=== PATIENT | female | born 1960 | race Caucasian/White ===

== ENCOUNTER 2017-11-24 08:04 | Day surgery (SDC) | payer BC, SELFPAY ==
--- NOTE | 2017-11-24 06:11 | PDOC.DSDIS_ITS ---
Discharge Plan Disposition Patient Disposition: HOME Condition: Good Discharge Details Reason For Visit: PERSONAL HX OF COLON POLYPS Attending Provider: Mayte Zaldivar Primary Care Provider: Kaitlynn Peralta Home Meds and New Rx's Prescriptions: Continue multivitamin [Daily Multi-Vitamin] 1 EACH tablet 1 ea PO daily prn RF: 0 albuterol sulfate [ProAir HFA] 200 PUFF HFA aerosol inhaler 1 - 2 puff Inhalation QID PRNQty: 1 RF: 4 furosemide 20 MG tablet 20 mg PO DAILY PRNQty: 30 RF: 1 carbidopa-levodopa [Sinemet] 1 EACH tablet 1 tab-cap PO HS PRNQty: 30 RF: 11 fluticasone 16 GM spray,suspension 2 spry NS DAILY Qty: 1 RF: 4 aspirin [Adult Low Dose Aspirin] 81 MG tablet,delayed release (DR/EC) 81 mg PO daily prn RF: 0 Discharge Instructions Instructions: Colonoscopy (DC), Diverticulosis (DC), Colorectal Polyps (DC) Additional Instructions: Findings: > then 12 polyps Mild diverticulosis Follow up: depends on final pathology New Medications: none Please call if you develop: fevers >101.5 Nausea or Vomiting Abdominal pain that is not transient 1. Because there will be medication in your system for the next 24 hours, you may feel a little sleepy. Your coordination will be affected. Therefore: a. Do not drive or operate dangerous equipment for 24 hours. b. Do not drink alcohol beverages for 24 hours (not even beer). c. Plan to go home and rest for the day. 2. Generally there are no restrictions on your activity after a day or so has gone by, but you may feel a bit fatigued for a few days. 3 After you arrive home you may have a light meal and return to a normal diet as you can tolerate it without feeling sick to your stomach. 4. After surgery, you may feel pain or discomfort. This should be only transient , but if it persists please contact your doctor. 5. If there are any questions regarding the findings of your procedure, please feel free to contact your doctor. 6. If you are unable to contact your doctor with a problem, contact the hospital at [phone]. 7. Continue all your regular medications unless directed otherwise. I understand the above instructions and have no questions. Signature of Patient or Responsible Adult Escort Date/Time Name of Responsible Adult Escort Signature of Nurse Date/Time Activity:: Activity as Tolerated Diet:: High fiber Discharge Orders Discharge Orders: Discharge Order (Routine); Ordered 11/24/17 Ordered By: Mayte Zaldivar DS: Diagnosis Discharge Diagnosis (1) Diverticulosis: Status: Acute (2) Colorectal polyp detected on colonoscopy: Status: Acute
--- NOTE | 2017-11-24 06:11 | W.COLOREPORT ---
Colonoscopy Report Date of procedure: 11/24/17 Pre-op diagnosis general: Colon Cancer screening Post-op diagnosis procedure note: other (Multiple polyps and diverticulosis) Procedure: Colonoscopy with polypectomy by cold forceps and hot snare Tattoo of polyp at 18/20 cm Surgeon: Mayte Zaldivar Anesthesia proc note operative: MAC (Álvaro Morrell CRNA) Estimated blood loss (mL): 15 Pathology: other (Multiple polyps) Complications: None Disposition: same day Indications: Mrs. Louie Snyder is a pleasant 57 year old female who 3 years ago had 10 polyps. 3 were tubular adenomas and 7 were hyperplastic. Patient was seen in the office for a follow up Colonoscopy. Risks, benefits and complications were reviewed and she wished to proceed. No guarantees were given or implied. Prep: Miralax/Dulcolax Procedure Start Time: 10:12 Procedure End Time: 11:14 Retraction Time: 51 minutes Findings: Multiple polyps. 2 larger polyps at 18 and 20 cm removed and tattooed. Procedure Description: After informed consent was obtained the patient was taken to the procedure room and placed in a left decubitous position. Monitors were applied and a time out was done. The patients name, date of , procedure, allergies to medications and metal in their body was reviewed. The patient was then sedated. Once sedated and comfortable a rectal exam was done. External exam was normal. Internal exam revealed a normal sphincter tone and no palpable masses. The scope was then introduced and retroflexed. No internal hemorrhoids were identified. The scope was then advanced to the cecum without difficulty. The TI and appendiceal orifice were identified. The prep was OK. there was some stool in the cecum. The scope was then slowly retracted over 51 minutes back into the rectum. More the 12 polyps were removed. There were 2 larger polyps at 18 and 20 cm. The area between these two polyps was tattooed with 1 cc of blue dye. The scope was removed and the patient was woken up and taken back to Same day surgery in stable condition. The patient tolerated the procedure well and there were no immediate complications. Follow up: Follow up will depend on the final pathology.
[2017-11-24 08:21] VITALS: BP 149/88; PULSE 78; RESP 16; TEMP 36.6; O2SAT 98
[2017-11-24] MEDS: Lactated Ringers 1,000 ML 80 ML IV (08:39)
--- NOTE | 2017-11-24 10:31 | BOWEL_PTH ---
PATIENT: Hien Delgado LOC: [facility] U#:[id number] AGE/SX: 57/F ROOM: RE11/24/[address]: Mayte Zaldivar MD : 1960 BED: DIS: 11/24/2017 SPEC #: [id number] RECD: 11/24/17 12:44 STATUS: MARISOL REQ #: [id number] DEWEY: 11/24/17 10:[address]: Mayte Zaldivar DEPT: Surgical Specimen RECD BY: Cinthya Reeder ENTERED: 11/24/17 12:46 SP TYPE: Bowel OTHR DR: Kaitlynn Peralta MD Tissues: 1 - BIOPSY BOWEL 2 - BIOPSY BOWEL 3 - BIOPSY BOWEL 4 - BIOPSY BOWEL 5 - BIOPSY BOWEL 6 - BIOPSY BOWEL Procedures: GROSS AND MICRO LEVEL 4 Comments: [id number]
[2017-11-24] MEDS: Endoscopic Tattoo 5 ML SYR IJ (11:05)
[2017-11-24 11:45] VITALS: BP 128/78; PULSE 69; RESP 16; O2SAT 99
== END 2017-11-24 12:00 | disposition home or self-care (01) ==
PROVIDERS: PCP Family Medicine; Visit Provider Surgery
PROC: 0DJD8ZZ Inspection of Lower Intestinal Tract, Via Natural or Artificial Opening Endoscopic (ICD-10-PCS; CPT 45378; principal; 2017-11-24 10:00)
DX: Z12.11 Encounter for screening for malignant neoplasm of colon (principal); D12.2 Benign neoplasm of ascending colon; D12.4 Benign neoplasm of descending colon; D12.5 Benign neoplasm of sigmoid colon; K63.5 Polyp of colon; K62.1 Rectal polyp; Z86.010 Personal history of colon polyps; F17.210 Nicotine dependence, cigarettes, uncomplicated
CPT/HCPCS: 45380; 45381; 45385; 88305; J2250; J3010

== ENCOUNTER 2017-12-29 17:59 | Emergency (ER) | payer OTHER, BC, SELFPAY ==
[2017-12-29] VITALS (17 sets, daily range): BP systolic 121–188; BP diastolic 62–105; PULSE 72–89; RESP 11–20; TEMP 36.3–36.6; O2SAT 97–100
--- NOTE | 2017-12-29 18:10 | DI.RAD_ITS ---
SYMPTOMS/DIAGNOSIS: DEFORMITY S/P FALL RIGHT ANKLE: Three views were obtained and show a moderately displaced trimalleolar fracture dislocation of the ankle. No additional hindfoot or midfoot fractures seen. POSTREDUCTION, RIGHT ANKLE: Three views were obtained with the ankle in a splint. There is improved reduction of the fracture dislocation of the trimalleolar fracture fragments.
[2017-12-29] MEDS: fentaNYL 100 MCG/2 ML VIAL 50 MCG IVP (18:16)
[2017-12-29 18:19] LABS: Abs Immature Grans 0.03 k/cumm (0.0-0.09); Absolute Basophil Count 0.02 k/cumm (0.0-0.2); Absolute Eosinophil Count 0.16 k/cumm (0.0-0.7); Absolute Lymphocyte Count 2.22 k/cumm (1.2-3.4); Absolute Monocyte Count 0.72 k/cumm (0.11-0.7); Absolute Neutrophil Count 5.69 k/cumm (1.2-6.7); Basophils % 0.2; Eosinophils % 1.8; HCT 43.7 % (36.0-46.0); HGB 14.3 g/dL (12.0-15.5); Immature Grans % 0.3; Lymphocytes % 25.1; Mean Corp. HGB Concentration 32.7 g/dL (32.0-36.0); Mean Corpuscular Hemoglobin 31.6 pg (27.0-33.0); Mean Corpuscular Volume 96.7 fL (80-95); Monocytes % 8.1; Neutrophils % 64.5; Platelet Count 159 x1000/uL (130-400); RBC 4.52 m/cumm (4.00-5.20); RBC Distribution Width 13.6 % (11.7-14.6); White Blood Cell Count 8.84 k/cumm (4.4-10.8)
[2017-12-29 18:35] LABS: ALT 39 U/L (12-78); AST 23 U/L (15-37); Albumin 3.8 g/dL (3.4-5.0); Alkaline Phosphatase 110 U/L (46-116); Anion Gap 8.9 mmol/L (3-11); BUN 17 mg/dL (7-18); Bilirubin, Total 0.2 mg/dL (0.2-1.0); CO2 25.1 mmol/L (21.0-32.0); CREATININE 0.75 mg/dL (0.55-1.02); Calcium 9.3 mg/dL (8.5-10.1); Chloride 106 mmol/L (98-107); Glucose 115 mg/dL (70-100); Potassium 3.8 mmol/L (3.5-5.1); Sodium 140 mmol/L (136-145); Total Protein 7.5 g/dL (6.4-8.2)
--- NOTE | 2017-12-29 19:01 | DI.VRAD_ITS ---
EXAM: XR Right Ankle Complete, 3 or more Views EXAM DATE/TIME: 12/29/2017 6:12 PM CLINICAL HISTORY: 57 years old, female; Signs and symptoms; Other: Deformity after fall TECHNIQUE: XR Right ankle 3 or more views. COMPARISON: BILATERAL EXTREMITY US 10/02/2015 11:00 AM FINDINGS: Bones/joints: Acute, comminuted fracture of the distal fibular diaphysis with minimal posterior and lateral angulation. Acute, comminuted fracture of the medial malleolus with 1 cm lateral subluxation of the talus relative to the tibia. Widening of the anterior tibiotalar joint. Acute fracture of the posterior malleolus with mild distraction. Soft tissues: Generalized soft tissue swelling. IMPRESSION: Acute medial and posterior malleolar, acute distal fibular fractures with disruption of the ankle mortise. Dictated and Authenticated by: Madison Crespo MD. Ordering:ADAM FALK MD
[2017-12-29] MEDS: Propofol 200 MG/20 ML VIAL 100 MG IVP (19:07)
[2017-12-29] MEDS: fentaNYL 100 MCG/2 ML VIAL IVP (19:17)
--- NOTE | 2017-12-29 19:21 | W.ORTHOCONSU ---
Date of service: 12/29/17 Time of Service: 19:21 History of Present Illness Chief Complaint: Right Ankle Pain/Deformity Narrative: Hien is a 57yo female who slipped on the snow while helping a lady in a wheelchair. She had immediate pain and deformity. She was brought into the ED where she was diagnosed with an ankle fracture. I was called for consult. She currently reports pain, but no numbness or tingling. No pain in the hip or knee. No head trauma. No previous issue with the ankle. Consults Consult date: 12/29/17 Requesting physician: Kassy Harley Consult Reason Right Ankle Fracture Assessment and Plan (1) Closed right trimalleolar fracture: Current visit: No Status: Acute Hien is a 57yo female with a closed trimalleolar ankle fracture. The position of the fracture has been improved and she is splinted. I discussed this in detail with Hien and I recommend operative fixation for this highly unstable fractrue. However, this should be delayed to allow for the soft tissue envelope to improve from the significant trauma and swelling. We will plan to fix this with surgery next week. Until then she will be non-weight bearing to the right leg. She should keep it elevated at all times. Review of Systems Review of Systems All systems reviewed & are unremarkable except as noted in HPI and below PFSH Family History Mother No problems noted. family Diabetes Heart disease Hyperlipidemia Neoplasm Father No problems noted. Sister Essential hypertension Brother Essential hypertension Depression Heart disease Hyperlipidemia Brother Essential hypertension Hyperlipidemia Medical History BMI 40.0-44.9, adult Left breast mass Restless leg Tubular adenoma of colon Social History Smoking/Tobacco Use Status: Current every day Surgical History Colonoscopy - IV Sedation Exam Narrative Exam Narrative: Right ankle has swelling circumfrentially around the ankle. There is a posterior and lateral displacement. SP/DP/Tib are intact. Foot WWP with palpable DP. +EHL/FHL. Results Last Vital Signs Temp 36.3 C L 12/29/17 18:03 Pulse 85 12/29/17 19:05 Resp 14 12/29/17 19:05 BP 121/105 H 12/29/17 19:05 Pulse Ox 100 12/29/17 19:05 Labs : 12/29/17 18:12 12/29/17 18:12 Laboratory Results - last 24 hr 12/29/17 12/29/17 18:12 18:12 WBC 8.84 RBC 4.52 Hgb 14.3 Hct 43.7 MCV 96.7 H MCH 31.6 MCHC 32.7 RDW 13.6 Plt Count 159 MPV 11.0 Immature Gran % 0.3 Neutrophils % 64.5 Lymphocytes % 25.1 Monocytes % 8.1 Eosinophils % 1.8 Basophils % 0.2 Absolute Neutrophils 5.69 Absolute Lymphocytes 2.22 Absolute Monocytes 0.72 H Absolute Eosinophils 0.16 Absolute Basophils 0.02 Sodium 140 Potassium 3.8 Chloride 106 Carbon Dioxide 25.1 Anion Gap 8.9 BUN 17 Creatinine 0.75 Estimated GFR/1.73 m2 >= 60.00 Glucose 115 H Calcium 9.3 Total Bilirubin 0.2 AST 23 ALT 39 Alkaline Phosphatase 110 Total Protein 7.5 Albumin 3.8 Imaging Imaging Studies: X-ray of the right ankle shows a displaced trimalleolar ankle fracture with posterior subluxation and a Farmer C fibula fracture. The talus is laterally displaced. Procedures Orthopedic Fracture Reduction Right Ankle: Time out performed: Yes Side: right Fracture reduction location: tibia and fibula Analgesia: procedural sedation Technique: direct manipulation Post-reduction x-rays demonstrate: acceptable reduction Post-reduction neuro exam: intact Post-reduction vascular exam: intact Splint applied: Yes Patient tolerated procedure: well
--- NOTE | 2017-12-29 19:23 | ED.GENADUL_ITS ---
Discharge Plan Disposition Patient Disposition: HOME Condition: Fair Discharge Details Chief Complaint: Orthopedic Clinical Impression: Ankle fracture, right Reason For Visit: CATINA Primary Care Provider: Kaitlynn Peralta ED Provider: Kassy Harley Home Meds and New Rx's Prescriptions: New acetaminophen-codeine [Tylenol-Codeine #3] 300-30 mg tablet 1 tab PO Q6H MDD 1-2 tabs every 4 hours PRN (Reason: pain) Qty: 10 RF: 0 Continue multivitamin [Daily Multi-Vitamin] 1 EACH tablet 1 ea PO daily prn RF: 0 albuterol sulfate [ProAir HFA] 200 PUFF HFA aerosol inhaler 1 - 2 puff Inhalation QID PRNQty: 1 RF: 4 furosemide 20 MG tablet 20 mg PO DAILY PRNQty: 30 RF: 1 carbidopa-levodopa [Sinemet] 1 EACH tablet 1 tab-cap PO HS PRNQty: 30 RF: 11 fluticasone 16 GM spray,suspension 2 spry NS DAILY Qty: 1 RF: 4 aspirin [Adult Low Dose Aspirin] 81 MG tablet,delayed release (DR/EC) 81 mg PO daily prn RF: 0 Discharge Instructions Instructions: Ankle Fracture (ED) Additional Instructions: Encourage rest, ice, elevation. Please use crutches or walker to remain nonweightbearing. Please call orthopedics tomorrow to schedule follow-up appointment. Tylenol No. 3 as prescribed. Max dose of 4000 mg of Tylenol daily. If you develop increased pain, fevers or chills or other new/worsening symptoms please seek care urgently once again. Referrals: Hermes House MD [ [facility] STAFF PHYSICIAN] - ([phone]) Medical Decision Making Patient 57-year-old female presents today with chief complaint of right ankle pain. He reports a prior to arrival, she was helping a elderly woman into her home, when the elderly female began to fall. She quickly tried to correct this action and suffered a rotational injury to the right ankle. She denies other injury at the time of the incident. Did not strike her head, no loss conscious. No pain with motion of her neck. No chest pain or shortness of breath. Exam is otherwise without significant abnormality. However, the patient has a notable deformity to the right ankle which appears to be posteriorly deformed. 2+ distal pulses. Unable to move the ankle. Knee and foot are without abnormality. She is able to move all of her toes well. Patient has not received anything as of yet for discomfort. Is not been able to bear weight since the incident. Plan to give the patient fentanyl and obtain imaging. X-ray reviewed by radiologist. They noted acute, comminuted fracture of the distal fibular diaphysis with minimal posterior and lateral angulation. Acute, comminuted fracture of the medial malleolus with 1 cm lateral subluxation of the talus relative to the tibia. Widening of the anterior tibiotalar joint. Acute fracture of the posterior malleolus with mild distraction. Generalized soft tissue swelling Discussed these findings with orthopedics who feels that reduction is appropriate at this time. Dr. House is in house will come to assist with this Procedure note: Procedure was performed myself, Dr. House, and sedation performed by Dr. Aburto. Patient was given propofol to help with sedation after discussing risk/benefits of the procedure, expected procedural steps. Consents were obtained. Patient tolerated reduction well which performed by Dr. House. Splint was applied by myself keeping patient in neutral position. She tolerated this well. Remains neurovascularly intact. Postreduction film reviewed by radiologist. They note reduction of the displaced distal fibular and tibial fractures. Alignment is now essentially anatomic. Overlying splint obscures bony detail. Generalized soft tissue swelling remains. Dr. House has advised the patient try to rest, ice and elevate her lower extremity. Plans for surgical intervention in 1 week. Patient will keep splint on until reevaluated by orthopedics. She will remain nonweightbearing. Dr. House discussed, at length, the use of crutches versus walker. Patient does report that she has a wheeled walker with chair attached at home however for crutches at this time. Patient did have difficulty with crutches was able to get about the department. We have asked EMS to be at her home to help her into the house that she is having difficulty with this and were concerned with the steps being potentially slippery. Regard to pain management, patient requested Tylenol 3 as this is what has worked well for her in the past. We discussed risk/benefits of these medications. She was given strict return precautions. She will contact orthopedics tomorrow for follow-up. All of her questions and concerns were addressed and she is in agreement this plan peer HPI General Mode of arrival: EMS . Date/Time Provider Initiated Documentation: 12/29/17 18:10 . Limitations to Documentation: no limitations . Information obtained by: patient and EMS . History of Present Illness 57 year old F presents to the emergency department with the chief complaint of right ankle pain, described as severe, with intensity rated at 9. Quality is described as stabbing, and is localized to the right and lower extremity. Patient reports no radiation. Patient started experiencing this minute(s) and it has been constant. No relieving factors improve symptom(s), Movement worsens symptoms . Patient notes denies chest pain, cough, fever/chills, nausea/vomiting and rash. Patient did receive the following treatments prior to arrival, none Related Data Home Medications Medication Instructions Recorded Confirmed aspirin [Adult Low Dose Aspirin] 81 mg PO daily prn 10/01/12 11/23/17 multivitamin [Daily Multi-Vitamin] 1 ea PO daily prn 10/07/12 11/24/17 albuterol sulfate [ProAir HFA] 1 - 2 puff INHALATION QID PRN #1 03/06/16 inhaler furosemide 20 mg PO DAILY PRN #30 tab-cap 07/31/16 11/24/17 carbidopa-levodopa [Sinemet] 1 tab-cap PO HS PRN #30 tab-cap 01/21/17 11/24/17 fluticasone 2 spry NS DAILY #1 script 01/21/17 11/24/17 acetaminophen-codeine 1 tab PO Q6H PRN #10 tab MDD 1-2 12/29/17 [Tylenol-Codeine #3] tabs every 4 hours Previous Rx's Medication Instructions Recorded fluticasone 2 spry NS DAILY #1 script 01/21/17 acetaminophen-codeine 1 tab PO Q6H PRN #10 tab MDD 1-2 12/29/17 [Tylenol-Codeine #3] tabs every 4 hours Allergies Allergy/AdvReac Type Severity Reaction Status Date / Time latex Allergy Intermediate rash Verified 12/29/17 18:06 Penicillins AdvReac Intermediate Verified 12/29/17 18:06 Carbapenems AdvReac Unknown Nausea Verified 12/29/17 18:06 NSAIDS (Non-Steroidal AdvReac Unknown Nausea Verified 12/29/17 18:06 Anti-Inflamma Sulfa (Sulfonamide AdvReac Unknown Nausea Verified 12/29/17 18:06 Antibiotics) General Stated Complaint: Orthopedic MARCELINA: 3 Review of Systems Constitutional Reports as per HPI Cardiovascular Reports as per HPI and Denies chest pain Respiratory Reports as per HPI, Denies chest congestion, Denies cough and Reports other ( patient is an active smoker) Gastrointestinal Reports as per HPI, Denies nausea and Denies vomiting Musculoskeletal Reports abnormal gait (unable to ambulate since the time of the fall), Denies numbness and Denies tingling Integumentary/Breasts Reports as per HPI, Denies rash and Denies wounds Neurologic Reports as per HPI, Reports abnormal gait (unable to ambulate since the time of the fall), Denies numbness and Denies tingling PFSH Family History Mother No problems noted. family Diabetes Heart disease Hyperlipidemia Neoplasm Father No problems noted. Sister Essential hypertension Brother Essential hypertension Depression Heart disease Hyperlipidemia Brother Essential hypertension Hyperlipidemia Medical History BMI 40.0-44.9, adult Left breast mass Restless leg Tubular adenoma of colon Social History Smoking/Tobacco Use Status: Current every day Surgical History Colonoscopy - IV Sedation Exam Const General: cooperative, healthy appearing, comfortable, no acute distress, well developed and well groomed Nutritional Appearance: average body habitus and well nourished Orientation: alert and awake Resp Effort & Inspection: normal respiratory effort, able to speak in complete sentences and no respiratory distress Auscultation: clear to auscultation bilaterally, no rales, no rhonchi and no wheezes Cardio Rate: regular rate Rhythm: regular rhythm Heart Sounds: S1 normal and S2 normal Skin General skin exam: no rashes or lesions noted Lesions: no lesions Rashes: no rashes Trauma: no lacerations or abrasions Neuro General: alert and awake Cognition: normal cognition Speech: speech normal Gait: gait abnormal (Patient is unable to weight-bear on the right lower) Sensory Exam: no sensory deficits noted Extrem General: normal capillary refill Right lower extremity: normal capillary refill; abnormal to inspection (Exam of the right lower extremity is significant for notable deformity proximal to the ankle. Deformity appears to be with posterior displacement. Limited range of motion. She is able to move all of her toes. 2+ distal pulses. Sensation is intact. Calf is soft and nontender. No pain to palpat), ROM limited, no cyanosis, no edema and joint enlargement noted Psych Appearance: grossly normal and well kempt Mental Status: mental status grossly normal Speech and Movement: speech and movement normal Course Vital Signs Temperature 36.3 C L 12/29/17 18:03 Pulse 86 12/29/17 18:03 Respiratory Rate 20 12/29/17 18:03 Blood Pressure 188/86 H 12/29/17 18:03 Pulse Oximetry 99 12/29/17 18:03 Temperature 36.3 C L 12/29/17 18:03 Temperature Source Skin 12/29/17 18:03 Pulse 86 12/29/17 18:03 Respiratory Rate 20 12/29/17 18:03 Respiratory Effort 12/29/17 18:07 Blood Pressure 188/86 H 12/29/17 18:03 Blood Pressure Position Supine 12/29/17 18:03 Pulse Oximetry 99 12/29/17 18:03 Oxygen Delivery Method Room Air 12/29/17 18:03 Oxygen Flow Rate 0 12/29/17 18:03 Pain Level 9 12/29/17 18:16 Lab/Test Results Lab/Test Results: Laboratory Tests Range/Units 12/29/17 18:12 WBC (4.4-10.8) k/cumm 8.84 RBC (4.00-5.20) m/cumm 4.52 Hgb (12.0-15.5) g/dL 14.3 Hct (36.0-46.0) % 43.7 MCV (80-95) fL 96.7 H MCH (27.0-33.0) pg 31.6 MCHC (32.0-36.0) g/dL 32.7 RDW (11.7-14.6) % 13.6 Plt Count (130-400) x1000/uL 159 MPV (8.0-11.0) fL 11.0 Immature Gran % 0.3 Neutrophils % 64.5 Lymphocytes % 25.1 Monocytes % 8.1 Eosinophils % 1.8 Basophils % 0.2 Absolute Neutrophils (1.2-6.7) k/cumm 5.69 Absolute Lymphocytes (1.2-3.4) k/cumm 2.22 Absolute Monocytes (0.11-0.7) k/cumm 0.72 H Absolute Eosinophils (0.0-0.7) k/cumm 0.16 Absolute Basophils (0.0-0.2) k/cumm 0.02
--- NOTE | 2017-12-29 19:38 | DI.VRAD_ITS ---
EXAM: XR Right Ankle Complete, 3 or more Views EXAM DATE/TIME: 12/29/2017 7:19 PM CLINICAL HISTORY: 57 years old, female; Signs and symptoms; Other: Post reduction TECHNIQUE: XR Right ankle 3 or more views. COMPARISON: CR XR ANKLE RT COMPLETE 12/29/2017 6:31 PM FINDINGS: Bones/joints: Reduction of the displaced distal fibular and tibial fractures. Alignment is now essentially anatomic. Soft tissues: Overlying splint obscures the bony detail. Generalized soft tissue swelling. IMPRESSION: Reduction of the displaced distal fibular and tibial fractures. Dictated and Authenticated by: Madison Crespo MD. Ordering:FARRAH LANE MD
--- NOTE | 2017-12-30 09:00 | W.ED.FU ---
Follow Up Plan: Pt called and asked for more Tylenol with Codeine to get her through to her surgery next week. She is concerned being the holiday she will have difficulty getting a refill. She has scheduled surgery next week to repair her trimalleolar fx. She was seen yesterday here in this ED and prescribed count of ten. I will prescribe an additional 14.
--- NOTE | 2017-12-30 09:18 | NUR.NOTE ---
Nursing Note: Patient called stating that she was given a prescription for only 10 Tylenol III and is worried that she would need more over the holiday weekend. Spoke with Luiz Griffith NP and he wrote for another prescription for 14 Tylenol III. If patient needs more after this she is to call the orthopedist office. Patient called, she will have someone picking belt operator the prescription for her. Miryam Gibson.
== END 2017-12-29 20:24 | disposition home or self-care (01) ==
PROVIDERS: Emergency Provider Physician Assistant; PCP Family Medicine
DX: S82.851A Displaced trimalleolar fracture of right lower leg, initial encounter for closed fracture (principal); W00.0XXA Fall on same level due to ice and snow, initial encounter; I10 Essential (primary) hypertension
CPT/HCPCS: 27818; 36415; 80053; 96374; 96375; 96376; 99253; 99284; 73610; 85025; E0114; J3010

== ENCOUNTER 2018-01-04 11:09 | Observation (INO) | payer OTHER, BC, SELFPAY ==
[2018-01-04] VITALS (15 sets, daily range): BP systolic 102–146; BP diastolic 59–87; PULSE 61–81; RESP 14–19; TEMP 36.3–37.8; O2SAT 92–98
--- NOTE | 2018-01-04 07:08 | DI.RAD_ITS ---
SYMPTOM/DIAGNOSIS: RIGHT ANKLE FRACTURE FLUOROSCOPY: Fluoroscopy Time: 27.4 SEC Fluoroscopy was provided in the O.R. for Dr. Ansari. Hard copy images show placement of a fixation across the lateral malleolus as well as screws in the medial malleolus for fracture fixation. Please see procedure note for details.
[2018-01-04] MEDS: Lactated Ringers 1,000 ML 80 ML IV ×2 (07:48→11:11)
[2018-01-04] MEDS: Bupivacaine 0.25% Pres-Free 10 ML VIAL (08:20)
[2018-01-04] MEDS: CLINDAMYCIN 600 MG/50 ML BAG 100 MG IVPB (09:14)
[2018-01-04] MEDS: HYDROmorphone 2 MG/ML VIAL IVP ×2 (11:33→11:48)
[2018-01-04] MEDS: LORazepam 2 MG/ML VIAL 0.5 MG IVP (11:42)
--- NOTE | 2018-01-04 11:50 | DI.RAD_ITS ---
SYMPTOMS/DIAGNOSIS: CHECK REDUCTION FOLLOWING OPEN REDUCTION AND INTERNAL FIXATION OF ANKLE FX PORTABLE RIGHT ANKLE: A posterior splint is in place. The patient is status post placement of screw and plate fixation along the distal fibula. Two pins are noted through the medial malleolus. The fracture alignment appears anatomic.
[2018-01-04] MEDS: MORPHine 10 MG/ML VIAL IVP ×2 (13:13→20:10)
[2018-01-04] MEDS: oxyCODONE-CR 10 MG TABCR PO (13:13)
[2018-01-04] MEDS: Normal Saline 1,000 ML 125 ML IV (13:28)
[2018-01-04] MEDS: Ketorolac 30 MG/ML VIAL IVP ×2 (15:15→22:07)
[2018-01-04] MEDS: Docusate Sodium 100 MG CAP PO ×2 (15:15→20:11)
--- NOTE | 2018-01-04 15:59 | IN_ITS ---
Date of service: 01/04/18 Time of Service: 15:15 PT Notes Inpatient Physical Therapy Evaluation Date: 01/04/18 Referring Doctor: Dr. Ansari PT Orders: PT CONSULT: gait training with walker. NWB on RLE, post-op ORIF of trimalleolar fx Precautions: fall, standard, NWB RLE Patient Profile/Admitting Diagnosis: Patient presented to ER via EMS after falling outdoors while pushing a wheelchair on 12/29/17. A trimalleolar fx was identified and she returned home NWB with planned surgery 01/04/18. She's now admitted overnight for observation and gait training. PMHX: BMI 40.0-44.9, adult Left breast mass Restless leg Tubular adenoma of colon Social History/Home Situation: Patient lives in a single level apartment. No steps to enter. 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 Equipment Owned/DME: Patient was issued crutches from the ER, which she has not used. Subjective: Patient states that she is ready to get up and use the commode. She reports that she's had a very difficult week; she was unable to get around using crutches, and instead borrowed her mother's rollator walker and scooted herself around in a seated position for the most part. She's nervous about how she'll get around for the next few weeks. Objective: General Observation: Resting in bed, IV in LUE, RLE elevated in post-op dressing Mental Status: A&Ox3 Pain: 5/10 right ankle ROM: Right Upper Extremity: WNL Left Upper Extremity: WNL Right Lower Extremity: Knee and hip motion are WNL Left Lower Extremity: grossly WNL Strength: Right Upper Extremity: Grossly WNL Left Upper Extremity: Grossly WNL Right Lower Extremity: Requires 50% assist for SLR. Quad strength 3/5 in seated position. Able to wiggle toes. Left Lower Extremity: Quads 5/5. Ankle DF 5/5. Sensation: intact distally Bed Mobility/Transfers: NWB RLE supine->sit: min A sit-stand: min A stand->sit: min A bed->chair: min A with WW chair->commode: CG with WW, via stand pivot Gait: Patient ambulates 10' with WW and min A, NWB RLE. Balance: Static Sitting: normal Dynamic Sitting: normal Static Standing: good Dynamic Standing: fair Informed Consent/Education: Patient instructed in purpose of PT consult and plan of care. Assessment: Patient is a 57 year old female referred to physical therapy services with the diagnosis of right ankle trimalleolar fx, s/p ORIF performed earlier today. Patient presents with clinical signs and symptoms consistent with post-operative status, as demonstrated by the following impairment level findings: 1. NWB RLE 2. Decreased RLE strength 3. Decreased activity tolerance 4. Decreased ankle ROM due to post-operative immobilization Impairments are contributing to the following functional limitations: 1. Decreased independence with bed mobility 2. Decreased independence with ambulation 3. Unable to tolerate community distance ambulation 4. Decreased independence with transfers 5. Unable to manage stairs Patient is assessed as a Low 48446 complexity based on the following: History: acute ankle fx s/p ORIF, in obese 57 year old female Examination: functional limitations as noted above Presentation: stable Decision Making: low complexity Goals: Goals X1 week 1. Supine-Sit: independent 2. Sit-Supine independent 3. Sit-Stand independent 4. Stand-Sit independent 5. Bed-Chair independent with ALEISHA, NWB RLE 6. Chair-Bed independent with WW, NWB RLE 7. Gait: supervision x 20' with WW Plan of Care/Treatment Plan: 1-2x/day, 7 days/week x 1 week. Plan of care has been reviewed with the WINCHER providing the service under Physical Therapy direction. Initiate Physical Therapy intervention for strengthening, bed mobility, transfers, gait, stairs, balance training, use of assistive device. DISCHARGE RECOMMENDATIONS: WW for home use. Plan to return home once ready. TREATMENT CODE/TIME: 25 minutes, [id number]
--- NOTE | 2018-01-04 17:25 | ROE_ITS ---
DATE OF PROCEDURE: January 04, 2018 PREOPERATIVE DIAGNOSIS: Trimalleolar fracture dislocation of the right ankle. POSTOPERATIVE DIAGNOSIS: Same. PROCEDURE: #1. Open reduction and internal fixation of trimalleolar fracture dislocation of the right ankle. #2. Application of a Pena dressing and short leg posterior splint. SURGEON: Jack Ansari M.D. TRANSIT OPERATOR: Paul Lemus PA-C ANESTHESIA: Femoral nerve block and general, Eve Bojorquez CRNA INDICATIONS: This patient sustained a trimalleolar fracture dislocation of her right ankle on . She was helping an elderly patient when she had a fall backwards, sustaining an external rotatio n injury to her right ankle. She was seen in the Emergency Room where she had a closed reduction per formed. It was decided to allow swelling to subside before proceeding with surgical treatment. The patient was advised that she would need open reduction and internal fixation for optimum results. Jeanne berumen had originally been seen by Dr. House in the Emergency Room. He informed her that he would not be able to do her surgery next week. She noted that she had had previous ganglion cyst excisions fro m both wrists by me and was comfortable with me performing her ankle surgery. I have discussed with her the risks and complications of the procedure, what the procedure involves, and expected postopera tive course. The patient gave informed consent to proceed with the surgery. PROCEDURE: The patient was first taken to the PACU where she had a femoral nerve block performed. S he was then taken to the Operating Room and placed supine on the operating table with a roll under he r right hip. A general anesthetic was administered and then a proximal tourniquet was applied. Then the right foot, ankle, and lower leg were prepped and draped free in the usual sterile fashion. The patient has a BMI greater than 40. He has very large legs with still moderate swelling but there we re no fracture blisters present. Under proximal tourniquet control, first a short curved medial incision was made centered over the me dial malleolus. The incision was about 3-1/2 inches in length. The incision was carried down to the medial malleolus. The saphenous nerve was tied off with #3-0 Vicryl suture. I opened the fracture site, irrigated it with saline solution, and then retracted the medial malleolus distally to inspect the ankle joints. The ankle joints were then irrigated with saline solution to remove any possible b diogenes debris. The articular surface of the talus appeared be undamaged and intact. The tibial plafond also looked normal. I did not see any bony fragments in the joint. Attention was then turned to the lateral side. A long straight lateral incision was made centered ov er the fibular shaft. The incision began at the distal tip of the fibula and then its proximal exten t was curved a little posteriorly around a tattoo that she wished to preserve. The incision was fenton ied down through the subcu to the fascia. The peroneal fascia was incised. The fracture was exposed and then the fibular fracture was reduced. The reduction was temporarily fixed with a 0.062 K-wire obliquely across the fracture. C-arm intensification imaging showed that the single K-wire provided anatomic reduction of the fibula and of the ankle mortise. The medial malleolar fragment was also ne ar anatomically reduced just by this temporary fixation of the fibula. Because of her BMI greater th an 40, I felt that a more robust plate was needed to fixate the fibula. I chose an 8-hole 3.5 recons truction plate. The plate was contoured to fit the lateral fibula and the plate was approximated to bone with a nonlocking 2.5 cortical screw proximal to the fracture. Then distal to the most distal h ole in the plate I used a locking 3.5 cortical screw. I removed the K-wire and then, using the hole in the plate that was the third from the distal end, I was able to place a 3.5 nonlocking screw throu gh the plate using the lag technique to stabilize the fracture. I then placed another 3.5 cortical l ag screw in the hole more proximal to that one. I then filled the second most distal hole with a 3.5 locking screw and then I filled two holes most proximally with nonlocking 2.5 screws. The fracture was then visualized with the C-arm. The fibula fracture was anatomically reduced, screw lengths were all good, and the ankle mortise was anatomically reduced. I then attempted to fix the medial malleolar fracture. I first placed 0.062 K-wires and transfixed t he fracture. I then placed a 4.0 cancellous screw and washer between the K-wires. I could not get g ood purchase with the screw, it did not compress the fracture, and it tended to rotate the fracture. I was not happy with the reduction. I removed the screw and it was difficult to fix the fracture be cause of the soft bone present. Finally, I placed two crossed 0.062 K-wires across the fracture, obt aining relatively good stability to the fracture without any gross motion. The C-arm image intensifi er was used to make sure that the K-wires did not violate the ankle joint. I then bent the pins at t he tip of the malleolus, cut them short, and I impacted the bent tip of the K-wire into the distal ti p of the medial malleolus using the tamp and a mallet. Both incision were then irrigated with Betadine and saline solution. The wound margins were infiltra baljeet with 0.5% Marcaine with epinephrine solution starting with the skin and extending down to the per iosteum on both sides. On the medial side, I approximated the periosteum over the fracture with a co uple of interrupted [id number] sutures of #1 Vicryl suture material. The subcu was approximated with interrupted #2-0 Vicryl sutures. The skin edges were approximated with near-far far-near sutur es of #3-0 nylon, the so-called trauma stitch. On the lateral side I had a couple of sutures in the fascia to bring muscle over the plate. The subcu was approximated with interrupted #3-0 Vicryl sutur es and the skin edges were approximated with near-far far-near interrupted sutures using #3-0 nylon f or a tension-free closure. Both incisions were dressed with Xeroform gauze, sterile gauze 4x4s, ABD pads, and wrapped with a 4-inch Kerlix bandage. I then applied a short leg Pena compressive dressin g and then I placed a short leg posterior fiberglass splint applied with 6-inch Roly bandages. The to urniquet was released. There was no breakthrough bleeding to the dressings. The patient's anesthesi a was reversed without complications. She was discharged to Recovery in good condition. When I saw the patient in the Emergency Room she was still having considerable pain. She also has so me difficulties with mobility at home and with help at home. It was felt that she would benefit from outpatient observation admittance for pain control and for help with mobilization with Distance Learning Technician apy.
[2018-01-04] MEDS: Acetaminophen 325 MG TAB 650 MG PO (20:10)
[2018-01-04] MEDS: Aspirin 81 MG CHEW PO (20:11)
[2018-01-04] MEDS: Normal Saline Flush 10 ML SYR IV (20:11)
[2018-01-05] MEDS: oxyCODONE-CR 10 MG TABCR PO ×2 (01:10→13:33)
[2018-01-05 01:33] VITALS: BP 133/74; PULSE 67; RESP 15; TEMP 36.4; O2SAT 96
[2018-01-05] MEDS: Normal Saline 1,000 ML 60 ML IV (01:33)
[2018-01-05] MEDS: Ketorolac 30 MG/ML VIAL IVP ×2 (04:04→09:25)
[2018-01-05 04:28] VITALS: BP 135/74; PULSE 67; RESP 15; TEMP 36.6; O2SAT 97
[2018-01-05 07:30] VITALS: O2SAT 94
[2018-01-05 07:31] VITALS: BP 136/79; PULSE 67; RESP 19; TEMP 36.6; O2SAT 97
[2018-01-05] MEDS: Aspirin 81 MG CHEW PO (07:55)
[2018-01-05] MEDS: Docusate Sodium 100 MG CAP PO ×2 (07:55→13:33)
[2018-01-05] MEDS: Pantoprazole 40 MG TABCR PO (07:55)
--- NOTE | 2018-01-05 11:03 | PDOC.CMIN ---
Care Management Initial Assess REASON FOR HOSPITALIZATION:: Timalleolar FX R Ankle PAST MEDICAL HISTORY/PAST SURGICAL HISTORY:: Closed right trimalleolar fracture, colorectal polyp detected on colonoscopy, diverticulosis, tubular adenoma, RLS, BMI 40-44.9, L breast mass PREVIOUS FUNCTIONAL STATUS/SOCIAL/FAMILY SUPPORTS:: Hien resides alone in [place], [place]. She reports a large supportive family, including her mother, brothers and sisters and nieces and nephews. She is single and reports having no children of her own. 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 CURRENT FUNCTIONAL STATUS:: Hien is sitting up in her chair, leg in a cast and elevated on a stool when CM meets with her. She is pleasant in interaction and forthcoming with information. ADVANCE DIRECTIVES:: None on file at [facility] Has patient been provided with information about the portal?: Yes Did the patient sign up for the portal?: No CODE STATUS:: Full Code INSURANCE COVERAGE / FINANCIAL ISSUES:: BC/BS CURRENT HOME/COMMUNITY SERVICES/EQUIPMENT:: Borrowing W/C and shower stool from sister. PRIMARY CARE PHYSICIAN:: Kaitlynn Peralta POTENTIAL DISCHARGE NEEDS:: FWW presription coordination. PT evaluation for safe discharge planning. Reviewed community based supports; Hien is not interested in [facility] at this time, CM faxed referral to Ericka Carreno [facility] to notify of pending discharge on NWB status. PATIENT/FAMILY EDUCATION NEEDS:: Review discharge instructions, discuss Ask Me Three. Education around DME options and insurance limitations. ANTICIPATED BARRIERS TO DISCHARGE:: None identified at this time. TRANSPORTATION:: Via private vehicle with her sister. PLAN:: Hien will discharge home when ready per MD-she felt confident in returning home and reported she would likely not need additional supports at this time. She will follow up with surgical services, her PCP and plan of care as prescribed including medication recommendations and activity restrictions. She will transport via private vehicle with her sister.
[2018-01-05 11:05] VITALS: BP 147/69; PULSE 73; RESP 18; TEMP 37.2; O2SAT 99
--- NOTE | 2018-01-05 11:24 | PT.INTREAT ---
Date of service: 01/05/18 Time of Service: 11:24 PT Notes Inpatient Physical Therapy Treatment Note Date: 01/05/18 PRECAUTIONS:Fall, NWB on R SUBJECTIVE: Hien states that she would like to go home today, she feels that she is ready to return to home safely and has plenty of help when she gets there. OBJECTIVE: PAIN: No complaints of pain BED MOBILITY/TRANSFERS Supine-sit: S Sit-stand: S Stand-sit: S GAIT Assistive Device: FWW Weight bearing: NWB R Assist: CGA/SBA Distance: 25' x2 Deviation: Fatigued THEREX: Patient completed the lower extremity strengthening program, as per flow sheet. Patient ends with ice to right knee area per her request. ASSESSMENT: Patient tolerated session well with increased fatigue with gait training. Patient was able to demonstrate NWB on R lower extremity without cueing. Patient was able to tolerate progression in her ther ex program, although would benefit from continued strengthening for improved mobility. PLAN: Continue with PT's POC TREATMENT CODE/TIME: 25 minutes; TA/TP
--- NOTE | 2018-01-05 12:33 | W.PM.DS.N ---
Date of service: 01/05/18 Time of Service: 12:33 DS: Diagnosis Discharge Diagnosis (1) Closed right trimalleolar fracture: Start date: 01/05/18 Start time: 12:35 Status: Acute Discharge Plan Disposition Patient Disposition: HOME Condition: Good Discharge Details Reason For Visit: TRIMALLEOLAR FX R ANKLE Admit Date/Time: 01/04/18 11:09 Admit Provider: Jack Ansari Attending Provider: Jack Ansari [facility] Course: The patient underwent an open reduction and internal fixation of her trimalleolar fracture on 01/04/2018. Because of her concerns of pain postop, and because of her questions about her mobility at home, she was admitted OBV for pain control and mobilization with physical therapy. On 01/05/2018 she reported her pain to be under good control. She was anxious to go home. Physical therapy saw her mobilized her and felt that she was independent enough for home discharge. She was afebrile vital signs were stable. I thought she had completed the acute care phase of her hospitalization and could be discharged home safely. Home Meds and New Rx's Prescriptions: New acetaminophen-codeine 300-30 mg tablet 1 tab PO Q6H PRN (Reason: pain) Qty: 30 RF: 0 ibuprofen 800 mg tablet 800 mg PO TID Qty: 60 RF: 0 Continue multivitamin [Daily Multi-Vitamin] 1 EACH tablet 1 ea PO daily prn RF: 0 albuterol sulfate [ProAir HFA] 200 PUFF HFA aerosol inhaler 1 - 2 puff Inhalation QID PRNQty: 1 RF: 4 furosemide 20 MG tablet 20 mg PO DAILY PRNQty: 30 RF: 1 carbidopa-levodopa [Sinemet] 1 EACH tablet 1 tab-cap PO HS PRNQty: 30 RF: 11 fluticasone 16 GM spray,suspension 2 spry NS DAILY Qty: 1 RF: 4 aspirin [Adult Low Dose Aspirin] 81 MG tablet,delayed release (DR/EC) 81 mg PO daily prn RF: 0 acetaminophen-codeine [Tylenol-Codeine #3] 300-30 mg tablet 1 tab PO Q6H MDD 1-2 tabs every 4 hours PRN (Reason: pain) Qty: 10 RF: 0 acetaminophen-codeine [Tylenol-Codeine #3] 300-30 mg tablet 1 tab PO Q6H PRN (Reason: ankle fracture) Qty: 14 RF: 0 Discharge Instructions Additional Instructions: Try to elevate right ankle on 1-2 pillows at all time, especially when sitting. Keep dressings and splint intact and dry until follow-up with Dr. Ansari. Follow-up in Dr. Ansari's office in 2 weeks. Stand Alone Forms: Nursing Discharge Form Referrals: Jack Ansari MD [ [facility] STAFF PHYSICIAN] - Activity:: Activity as Tolerated Equipment/Supplies:: Walker Diet:: As Tolerated Discharge Orders Discharge Orders: Discharge Order (Routine); Ordered 01/05/18 Ordered By: Jack Ansari DS: Data Vitals/I&O Vitals and I&O: Vital Signs Temperature 37.2 C 01/05/18 11:05 Temperature Source Tympanic 01/05/18 11:05 Pulse 73 01/05/18 11:05 Pulse Rhythm Regular 01/05/18 10:07 Respiratory Rate 18 01/05/18 11:05 Respiratory Depth Normal 01/04/18 07:22 Blood Pressure 147/69 H 01/05/18 11:05 Pulse Oximetry 99 01/05/18 11:05 Respiratory End-tidal CO2 45 01/04/18 12:25 Oxygen Delivery Method Room Air 01/05/18 11:05 Oxygen Flow Rate 0 01/05/18 11:05 Pain Level 5 01/05/18 09:25 Intake & Output 01/04/18 01/05/18 01/05/18 23:59 11:59 23:59 Intake Total 2180 / 2180 930 / 930 Output Total 450 / 450 400 / 400 Balance 1730 / 1730 530 / 530 Intake: IV 1600 / 1600 50 / 50 Oral 580 / 580 880 / 880 Output: Urine 450 / 450 400 / 400 Other: Urine Color Yellow Dark Marleen Urine Appearance Clear Clear Urine Odor Strong Emesis Description None Voiding Methods Bedside Commode Toilet
[2018-01-05] MEDS: MORPHine 10 MG/ML VIAL IVP (12:52)
--- NOTE | 2018-01-05 13:34 | PT.INDS ---
Date of service: 01/05/18 Time of Service: 13:34 PT Notes Inpatient Physical Therapy Discharge Summary Date: 01/05/18 Dates of Service: 01/04/18-01/05/18 SUBJECTIVE: NT OBJECTIVE: 01/04/18-01/05/18 BED MOBILITY/TRANSFERS: Supine-sit :supervision Sit-stand : supervision Stand-sit : supervision GAIT: CGA/SBA with FWW 25ftx2 NWB R LE BALANCE: Static sitting: normal Dynamic sitting: normal Static standing: good Dynamic standing: fair ASSESSMENT: Pt was seen for 2 PT visits. Progressed from Roberto bed transfers to supervision, from Roberto standing transfers to supervision, from Roberto gait with FWW 10ft to CGA/SBA with FWW 25ftx2 NWB R LE. Pt is being discharged to home setting, recommend home PT for continued strengthening and mobility training. GOALS Goals X1 week 1. Supine-Sit: independent 2. Sit-Supine independent 3. Sit-Stand independent 4. Stand-Sit independent 5. Bed-Chair independent with CONSTANTINO MORAESB RLE 6. Chair-Bed independent with ALEISHA NWB RLE 7. Gait: supervision x 20' with WW Pt did not meet goals prior to discharge, home PT recommnended DISCHARGE PLAN/RECOMMENDATIONS: Home, FWW, home PT Jailyn Eaton PT
--- NOTE | 2018-01-05 13:34 | W.PM.DS.N ---
DS: Diagnosis Discharge Diagnosis (1) Closed right trimalleolar fracture: Status: Acute Discharge Plan Disposition Patient Disposition: HOME Condition: Good Discharge Details Reason For Visit: TRIMALLEOLAR FX R ANKLE Admit Date/Time: 01/04/18 11:09 Admit Provider: Jack Ansari Attending Provider: Jack Ansari [facility] Hospital Course: The patient underwent an open reduction and internal fixation of her trimalleolar fracture on 01/04/2018. Because of her concerns of pain postop, and because of her questions about her mobility at home, she was admitted OBV for pain control and mobilization with physical therapy. On 01/05/2018 she reported her pain to be under good control. She was anxious to go home. Physical therapy saw her mobilized her and felt that she was independent enough for home discharge. She was afebrile vital signs were stable. I thought she had completed the acute care phase of her hospitalization and could be discharged home safely. Home Meds and New Rx's Prescriptions: New ibuprofen 800 mg tablet 800 mg PO TID Qty: 60 RF: 0 hydrocodone-acetaminophen 5-325 mg tablet 1 tab PO Q4H PRN (Reason: pain) Qty: 30 RF: 0 Continue multivitamin [Daily Multi-Vitamin] 1 EACH tablet 1 ea PO daily prn RF: 0 albuterol sulfate [ProAir HFA] 200 PUFF HFA aerosol inhaler 1 - 2 puff Inhalation QID PRNQty: 1 RF: 4 furosemide 20 MG tablet 20 mg PO DAILY PRNQty: 30 RF: 1 carbidopa-levodopa [Sinemet] 1 EACH tablet 1 tab-cap PO HS PRNQty: 30 RF: 11 fluticasone 16 GM spray,suspension 2 spry NS DAILY Qty: 1 RF: 4 aspirin [Adult Low Dose Aspirin] 81 MG tablet,delayed release (DR/EC) 81 mg PO daily prn RF: 0 Discontinued acetaminophen-codeine [Tylenol-Codeine #3] 300-30 mg tablet 1 tab PO Q6H MDD 1-2 tabs every 4 hours PRN (Reason: pain) Qty: 10 RF: 0 acetaminophen-codeine [Tylenol-Codeine #3] 300-30 mg tablet 1 tab PO Q6H PRN (Reason: ankle fracture) Qty: 14 RF: 0 Discharge Instructions Instructions: ORIF of an Ankle Fracture (DC) Additional Instructions: Try to elevate right ankle on 1-2 pillows at all time, especially when sitting. Keep dressings and splint intact and dry until follow-up with Dr. Ansari. Follow-up in Dr. Ansari's office in 2 weeks. Stand Alone Forms: Nursing Discharge Form Referrals: Jack Ansari MD [ [facility] STAFF PHYSICIAN] - (CALL FOR AN APPT. FOLLOW UP IN 2 WEEKS) Activity:: Activity as Tolerated Equipment/Supplies:: Walker Diet:: As Tolerated Discharge Orders Discharge Orders: Discharge Order (Routine); Ordered 01/05/18 Ordered By: Jack Ansari DS: Data Vitals/I&O Vitals and I&O: Vital Signs Temperature 37.2 C 01/05/18 11:05 Temperature Source Tympanic 01/05/18 11:05 Pulse 73 01/05/18 11:05 Pulse Rhythm Regular 01/05/18 10:07 Respiratory Rate 18 01/05/18 11:05 Respiratory Depth Normal 01/04/18 07:22 Blood Pressure 147/69 H 01/05/18 11:05 Pulse Oximetry 99 01/05/18 11:05 Respiratory End-tidal CO2 45 01/04/18 12:25 Oxygen Delivery Method Room Air 01/05/18 11:05 Oxygen Flow Rate 0 01/05/18 11:05 Pain Level 4 01/05/18 13:33 Intake & Output 01/04/18 01/05/18 01/05/18 23:59 11:59 23:59 Intake Total 2180 / 2180 930 / 930 Output Total 450 / 450 400 / 400 Balance 1730 / 1730 530 / 530 Intake: IV 1600 / 1600 50 / 50 Oral 580 / 580 880 / 880 Output: Urine 450 / 450 400 / 400 Other: Urine Color Yellow Dark Marleen Urine Appearance Clear Clear Urine Odor Strong Emesis Description None Voiding Methods Bedside Commode Toilet
--- NOTE | 2018-01-05 14:54 | INITIAL_ITS ---
Care Management Initial Assess REASON FOR HOSPITALIZATION:: Timalleolar FX R Ankle PAST MEDICAL HISTORY/PAST SURGICAL HISTORY:: Closed right trimalleolar fracture , colorectal polyp detected on colonoscopy, diverticulosis, tubular adenoma, RLS , BMI 40-44.9, L breast mass PREVIOUS FUNCTIONAL STATUS/SOCIAL/FAMILY SUPPORTS:: Hien resides alone in [place], [place]. She reports a large supportive family, including her mother, brothers and sisters and nieces and nephews. She is single and reports having no children of her own. 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 CURRENT FUNCTIONAL STATUS:: Hien is sitting up in her chair, leg in a cast and elevated on a stool when CM meets with her. She is pleasant in interaction and forthcoming with information. ADVANCE DIRECTIVES:: None on file at [facility] Has patient been provided with information about the portal?: Yes Did the patient sign up for the portal?: No CODE STATUS:: Full Code INSURANCE COVERAGE / FINANCIAL ISSUES:: BC/BS CURRENT HOME/COMMUNITY SERVICES/EQUIPMENT:: Borrowing W/C and shower stool from sister. PRIMARY CARE PHYSICIAN:: Kaitlynn Peralta POTENTIAL DISCHARGE NEEDS:: FWW presription coordination. PT evaluation for safe discharge planning. Reviewed community based supports; Hien is not interested in [facility] at this time, CM faxed referral to Ericka Carreno [facility] to notify of pending discharge on NWB status. PATIENT/FAMILY EDUCATION NEEDS:: Review discharge instructions, discuss Ask Me Three. Education around DME options and insurance limitations. ANTICIPATED BARRIERS TO DISCHARGE:: None identified at this time. TRANSPORTATION:: Via private vehicle with her sister. PLAN:: Hien will discharge home when ready per MD-she felt confident in returning home and reported she would likely not need additional supports at this time. She will follow up with surgical services, her PCP and plan of care as prescribed including medication recommendations and activity restrictions. She will transport via private vehicle with her sister.
== END 2018-01-05 14:09 | disposition home or self-care (01) ==
LOC: MS 12:42
PROVIDERS: Admitting Provider Orthopaedic Surgery; PCP Family Medicine; Visit Provider Orthopaedic Surgery
PROC: 0QSJ04Z Reposition Right Fibula with Internal Fixation Device, Open Approach (ICD-10-PCS; CPT 27823; principal; 2018-01-04 09:30)
DX: S82.851A Displaced trimalleolar fracture of right lower leg, initial encounter for closed fracture (principal); X50.1XXA Overexertion from prolonged static or awkward postures, initial encounter; Y93.F9 Activity, other caregiving; Y99.0 Civilian activity done for income or pay; Z68.41 Body mass index [BMI] 40.0-44.9, adult
CPT/HCPCS: 27823; 76942; 97110; 97161; 97530; NC; 73610; G0378; J0690; J1100; J1885; J2060; J2250; J2270; J2405; J3010

== ENCOUNTER 2018-01-19 10:49 | Outpatient (CLI) | payer OTHER, BC, SELFPAY ==
--- NOTE | 2018-01-19 10:42 | DI.RAD_ITS ---
SYMPTOM/DIAGNOSIS: F/U ORIF RIGHT ANKLE: Comparison is made with 20 Dec 2017. There is no change in the hardware on both malleoli. There has been some interval fracture healing. The medial ankle mortise is mildly widened, unchanged. Soft tissue swelling remains present.
== END 2018-01-19 11:09 ==
PROVIDERS: PCP Family Medicine; Visit Provider Orthopaedic Surgery
DX: S82.841D Displaced bimalleolar fracture of right lower leg, subsequent encounter for closed fracture with routine healing (principal)
CPT/HCPCS: 73610

== ENCOUNTER 2018-01-28 11:16 | Outpatient (CLI) | payer OTHER, SELFPAY ==
--- NOTE | 2018-01-28 11:14 | DI.RAD_ITS ---
SYMPTOM/DIAGNOSIS: ORIF ANKLE LEFT ANKLE: There is considerable generalized soft tissue swelling in fixation of the medial malleolar fracture and plate and screw fixation of the lateral malleolar fracture is again noted. The fractures remain in excellent position. Orthopaedic hardware unchanged.
== END 2018-01-28 11:36 ==
PROVIDERS: PCP Family Medicine; Visit Provider Physician Assistant
DX: S82.841D Displaced bimalleolar fracture of right lower leg, subsequent encounter for closed fracture with routine healing (principal)
CPT/HCPCS: 73600

== ENCOUNTER 2018-02-16 10:29 | Outpatient (CLI) | payer OTHER, SELFPAY ==
--- NOTE | 2018-02-16 10:24 | DI.RAD_ITS ---
SYMPTOM/DIAGNOSIS: F/U ORIF RIGHT ANKLE: Three views. Comparison is made with 01/28/18. There is again seen internal fixation of fractures involving the distal right fibula and tibia. No change in alignment of the orthopedic hardware or fracture components is seen. There is persistent soft tissue swelling about the ankle. No new fractures or dislocations are identified. The bones do appear to be mildly osteopenic suggesting decreased use.
== END 2018-02-16 10:49 ==
PROVIDERS: PCP Family Medicine; Visit Provider Orthopaedic Surgery
DX: S82.841D Displaced bimalleolar fracture of right lower leg, subsequent encounter for closed fracture with routine healing (principal); M85.88 Other specified disorders of bone density and structure, other site
CPT/HCPCS: 73610

== ENCOUNTER 2018-03-30 10:13 | Outpatient (CLI) | payer OTHER, SELFPAY ==
--- NOTE | 2018-03-30 10:06 | DI.RAD_ITS ---
SYMPTOMS/DIAGNOSIS: ORIF RIGHT ANKLE: Two views. Comparison is 02/16/18. The sideplate and screws are seen in the distal fibula. The orthopedic hardware appears in good position. There is stable alignment of the distal right fibular fracture. There has been interval healing compared to the prior examination. There has been interval healing of the fracture of the medial malleolus. No new fractures or dislocations are seen. The bones appear osteopenic consistent with decreased use. There is soft tissue swelling about the ankle.
== END 2018-03-30 10:33 ==
PROVIDERS: PCP Family Medicine; Visit Provider Physician Assistant Surgical
DX: S82.841D Displaced bimalleolar fracture of right lower leg, subsequent encounter for closed fracture with routine healing (principal)
CPT/HCPCS: 73600

== ENCOUNTER 2018-04-27 11:22 | Outpatient (CLI) | payer OTHER, SELFPAY ==
--- NOTE | 2018-04-27 11:25 | DI.RAD_ITS ---
SYMPTOM/DIAGNOSIS: F/U ORIF RIGHT ANKLE: When compared with the previous examination of 03/30, diminished soft tissue swelling is identified about the ankle. The medial and lateral malleolar fractures remain in excellent position. Orthopedic hardware in place.
== END 2018-04-27 11:42 ==
PROVIDERS: PCP Family Medicine; Visit Provider Physician Assistant Surgical
DX: S82.851D Displaced trimalleolar fracture of right lower leg, subsequent encounter for closed fracture with routine healing (principal); M79.89 Other specified soft tissue disorders
CPT/HCPCS: 73600

== ENCOUNTER 2018-05-27 09:46 | Outpatient (CLI) | payer OTHER, SELFPAY ==
--- NOTE | 2018-05-27 09:41 | DI.RAD_ITS ---
SYMPTOMS/DIAGNOSIS: FOLLOW UP RIGHT ANKLE: Three views were obtained. The previously described fixation of medial and lateral malleolar fractures is again noted with no gross interval change in alignment in comparison with examination of 04/27/18.
== END 2018-05-27 10:06 ==
PROVIDERS: PCP Family Medicine; Visit Provider Orthopaedic Surgery
DX: S82.841D Displaced bimalleolar fracture of right lower leg, subsequent encounter for closed fracture with routine healing (principal)
CPT/HCPCS: 73600

== ENCOUNTER 2018-07-09 02:06 | Outpatient (CLI) | payer BC, SELFPAY ==
[2018-07-09 11:21] LABS: ALT 21 U/L (12-78); AST 16 U/L (15-37); Albumin 3.9 g/dL (3.4-5.0); Alkaline Phosphatase 93 U/L (46-116); Anion Gap 10.3 mmol/L (3-11); BUN 22 mg/dL (7-18); Bilirubin, Total 0.4 mg/dL (0.2-1.0); CO2 26.7 mmol/L (21.0-32.0); CREATININE 0.65 mg/dL (0.55-1.02); Calcium 9.3 mg/dL (8.5-10.1); Chloride 104 mmol/L (98-107); Cholesterol 277 mg/dL (50-200); Glucose 97 mg/dL (70-100); HDL Cholesterol 54 mg/dL (40-60); LDL CHOLESTEROL 195 mg/dL (<100); Potassium 4.6 mmol/L (3.5-5.1); Sodium 141 mmol/L (136-145); Total Protein 7.1 g/dL (6.4-8.2); Triglyceride 64 mg/dL (30-150)
== END 2018-07-09 02:26 ==
PROVIDERS: PCP Family Medicine; Visit Provider Family Medicine
DX: G25.81 Restless legs syndrome (principal); Z13.220 Encounter for screening for lipoid disorders
CPT/HCPCS: 36415; 80053; 80061; 83721

== ENCOUNTER 2018-07-10 10:10 | Emergency (ER) | payer BC, SELFPAY ==
[2018-07-10] VITALS (47 sets, daily range): BP systolic 129–198; BP diastolic 68–101; PULSE 52–71; RESP 9–22; TEMP 36.8; O2SAT 95–100
--- NOTE | 2018-07-10 10:21 | DI.RAD_ITS ---
SYMPTOM/DIAGNOSIS: CHEST PAIN AP AND LATERAL CHEST: The heart is normal in size. The lungs are clear. The mediastinal structures and pleura appear intact. CONCLUSION: Normal chest.
--- NOTE | 2018-07-10 10:24 | ED.GENADUL_ITS ---
Discharge Plan Disposition Patient Disposition: AGAINST MEDICAL ADVICE Condition: Improving Discharge Details Chief Complaint: Chest Pain Clinical Impression: Chest pain Primary Care Provider: Kaitlynn Peralat ED Provider: Trinh Cross Home Meds and New Rx's Prescriptions: Continued nicotine 21 mg/24 hr patch 24 hour 1 patch TD Q24H Qty: 28 RF: 2 citalopram 20 mg tablet 20 mg PO DAILY Qty: 90 RF: 3 celecoxib [Celebrex] 200 mg capsule 200 mg PO BID RF: 0 multivitamin [Daily Multi-Vitamin] 1 EACH tablet 1 ea PO daily prn RF: 0 carbidopa-levodopa [Sinemet] 1 EACH tablet 1 tab-cap PO HS PRNQty: 30 RF: 11 furosemide 20 mg tablet 20 mg PO DAILY PRN (Reason: edema) Qty: 30 RF: 0 albuterol sulfate [ProAir HFA] 90 mcg/actuation HFA aerosol inhaler 1 - 2 puff Inhalation QID PRN (Reason: bronchospasm) Qty: 1 RF: 0 aspirin [Adult Low Dose Aspirin] 81 mg tablet,delayed release (DR/EC) 81 mg PO DAILY RF: 0 Discharge Instructions Instructions: Chest Pain (ED) Additional Instructions: You are leaving the hospital AGAINST MEDICAL ADVICE. Your chest pain may be due to a cardiac etiology and will require further evaluation. Call radiology to schedule a follow-up appointment for your outpatient stress test. Call your primary care doctor on Thursday morning to schedule a follow-up appointment for reevaluation. Return immediately to the emergency department with any worsening or new concerning symptoms. Discharge Data Discharge Date/Time-TO BE ENTERED AT DEPARTURE: 07/10/18 14:31 Discharge Physician: Trinh Cross Medical Decision Making 58yo F with a history of restless leg syndrome and cervical cancer who presents to the ED with complaint of intermittent left anterior chest pain for the past 2 days. Describes as pulsating, pressure and fluttering, also complains of left arm tingling and radiation of pain to left jaw. Vitals within normal limits. Patient appears comfortable. Pain is currently 3/10. Lungs clear. She has localized area of tenderness to palpation in her left anterior chest. No rash or trauma noted. EKG notes a rate of 66, sinus and no acute ST findings. Considering patient's age and complaint, cardiac work-up ordered on arrival and unremarkable. Troponin negative. Chest x-ray appears unremarkable. Discussed with patient that her pain appears musculoskeletal as it is reproducible, however with her additional symptoms of left arm tingling and jaw pain with vomiting x1 and shortness of breath with exertion, is more concerning for a cardiac etiology. Patient states she would rather go home today if possible. We will give a dose of Toradol, consider second troponin, versus admission if patient is agreeable. 1300 --patient denies any relief of pain with Toradol. Patient states she would like to go home. She is agreeable to second troponin. 1400 --second troponin negative. Repeat EKG unchanged. Patient denies any chest pain at this time. Due to patient's concerning story, recommended admission for further evaluation but she is declining at this time. The risks of and disability due to a serious cardiac etiology were explained and patient fully understands. She demonstrates capacity to make decisions. AMA form signed. An order for an outpatient stress test was placed. Patient instructed to call radiology to schedule this as an outpatient. She is instructed to call her primary care doctor Thursday morning for follow-up appointment and to return here immediately if worse. Medical Records Medical records reviewed: Yes I reviewed the patient's medical records. Imaging Data Radiologic Study: Radiologist's impression: XR Chest, 2 Views EXAM DATE/TIME: 07/10/2018 10:22 AM CLINICAL HISTORY: 58 years old, female; Signs and symptoms; Other: Chest pain, R/O acute disease TECHNIQUE: Imaging protocol: XR of the chest, 2 views. COMPARISON: CR CHEST 2 VIEWS PA,LAT 10/01/2012 8:10 AM FINDINGS: Lungs: Unremarkable. No consolidation. Pleural space: Unremarkable. No pleural effusion. No pneumothorax. Heart/Mediastinum: Unremarkable. No cardiomegaly. Bones/joints: Mild dextroscoliosis. IMPRESSION: No acute findings. Lab Data Lab results reviewed: Yes I reviewed the patient's lab results. Laboratory Tests Range/Units 07/10/18 07/10/18 07/10/18 10:25 10:25 13:25 WBC (4.4-10.8) k/cumm 6.51 RBC (4.00-5.20) m/cumm 4.45 Hgb (12.0-15.5) g/dL 14.5 Hct (36.0-46.0) % 43.4 MCV (80-95) fL 97.5 H MCH (27.0-33.0) pg 32.6 MCHC (32.0-36.0) g/dL 33.4 RDW (11.7-14.6) % 13.6 Plt Count (130-400) x1000/uL 162 MPV (8.0-11.0) fL 10.7 Immature Gran % 0.2 Neutrophils % 57.6 Lymphocytes % 33.2 Monocytes % 6.5 Eosinophils % 2.2 Basophils % 0.3 Absolute Neutrophils (1.2-6.7) k/cumm 3.76 Absolute Lymphocytes (1.2-3.4) k/cumm 2.16 Absolute Monocytes (0.11-0.7) k/cumm 0.42 Absolute Eosinophils (0.0-0.7) k/cumm 0.14 Absolute Basophils (0.0-0.2) k/cumm 0.02 Sodium (136-145) mmol/L 141 Potassium (3.5-5.1) mmol/L 4.1 Chloride (98-107) mmol/L 106 Carbon Dioxide (21.0-32.0) mmol/L 26.9 Anion Gap (3-11) mmol/L 8.1 BUN (7-18) mg/dL 18 Creatinine (0.55-1.02) mg/dL 0.62 Estimated GFR/1.73 m2 (mL/min/1.73m2) >= 60.00 Glucose (70-100) mg/dL 98 Calcium (8.5-10.1) mg/dL 9.3 Magnesium (1.8-2.4) mg/dL 2.0 Total Bilirubin (0.2-1.0) mg/dL 0.3 AST (15-37) U/L 17 ALT (12-78) U/L 24 Alkaline Phosphatase (46-116) U/L 96 Troponin I (0.00-0.06) ng/mL < 0.02 < 0.02 Total Protein (6.4-8.2) g/dL 7.5 Albumin (3.4-5.0) g/dL 4.0 ECG Data Attestation: I personally reviewed and interpreted this ECG (s) as follows: Interpretation: #1 -1020: Rate of 66, sinus, no acute ST elevation or depression, QTC 423, QRS 86. #2 - 1330: Rate of 57, sinus, no acute ST elevation or depression. QTc 436, QRS 84. HPI General Mode of arrival: ambulatory . Date/Time Provider Initiated Documentation: 07/10/18 10:20 . Limitations to Documentation: no limitations . Information obtained by: patient . HPI Narrative: Patient is a 58-year-old female with a history of restless leg syndrome, cervical cancer who presents to the ED with complaint of chest pain for the past 2 days. Patient states the symptoms started as a pulsating type pain in her left anterior chest. She states yesterday she developed pain under her left axilla which then radiated up to her left anterior chest and felt like fluttering. She also admits to some ra diation pain from her left anterior chest up to her left jaw. She states the pain now feels like pressure and is 3/10. She states yesterday she developed left arm tingling and today she vomited once. She also admits to a dry cough for the past 3 weeks. She denies any recent travel, recent surgery, leg pain or swelling. She states today while walking into the emergency department she admitted to some shortness of breath with exertion. Related Data Home Medications Medication Instructions Recorded Confirmed multivitamin [Daily Multi-Vitamin] 1 ea PO daily prn 10/07/12 07/10/18 carbidopa-levodopa [Sinemet] 1 tab-cap PO HS PRN #30 tab-cap 01/21/17 07/10/18 furosemide 20 mg tablet 20 mg PO DAILY PRN #30 tab-cap 01/28/18 07/10/18 albuterol sulfate HFA 90 1 - 2 puff INHALATION QID PRN #1 02/18/18 07/10/18 mcg/actuation aerosol inhaler inhaler aspirin 81 mg tablet,delayed 81 mg PO DAILY tab 03/03/18 07/10/18 release nicotine 21 mg/24 hr daily 1 patch TD Q24H #28 each 03/03/18 07/10/18 transdermal patch celecoxib 200 mg capsule 200 mg PO BID 06/02/18 07/10/18 citalopram 20 mg tablet 20 mg PO DAILY #90 tab 06/02/18 07/10/18 Previous Rx's Medication Instructions Recorded furosemide 20 mg tablet 20 mg PO DAILY PRN #30 tab-cap 01/28/18 albuterol sulfate HFA 90 1 - 2 puff INHALATION QID PRN #1 02/18/18 mcg/actuation aerosol inhaler inhaler nicotine 21 mg/24 hr daily 1 patch TD Q24H #28 each 03/03/18 transdermal patch citalopram 20 mg tablet 20 mg PO DAILY #90 tab 06/02/18 Allergies Allergy/AdvReac Type Severity Reaction Status Date / Time latex Allergy Intermediate rash Verified 07/10/18 10:27 Penicillins AdvReac Intermediate Verified 07/10/18 10:27 Carbapenems AdvReac Unknown Nausea Verified 07/10/18 10:27 NSAIDS (Non-Steroidal AdvReac Unknown Nausea Verified 07/10/18 10:27 Anti-Inflamma Sulfa (Sulfonamide AdvReac Unknown Nausea Verified 07/10/18 10:27 Antibiotics) General MARCELINA: 3 Review of Systems Review of Systems All systems reviewed & are unremarkable except as noted in HPI and below Constitutional Reports as per HPI, Denies chills and Denies fever(s) Eyes Denies blurry vision ENT Denies dizziness, Denies sore throat and Denies throat swelling Cardiovascular Reports chest pain and Reports dyspnea Respiratory Denies cough and Reports dyspnea Gastrointestinal Denies abdominal pain, Denies diarrhea and Reports vomiting Genitourinary Denies hematuria and Denies dysuria Musculoskeletal Denies back pain and Denies numbness Integumentary/Breasts Denies lesions and Denies rash Neurologic Denies dizziness, Denies focal weakness and Denies numbness Allergic/Immunologic Denies throat swelling PFSH Medical History Hx of fracture of ankle (Acute) BMI 40.0-44.9, adult Left breast mass Restless leg Tubular adenoma of colon Surgical History Colonoscopy - IV Sedation Family History Mother Vocal cord cancer Hyperlipidemia Hypertension Stroke family Diabetes Heart disease Hyperlipidemia Neoplasm Father Prostate cancer Heart disease Hyperlipidemia Hypertension Sister Essential hypertension Brother Essential hypertension Depression Heart disease Hyperlipidemia Brother Essential hypertension Hyperlipidemia Depression Heart disease Social History Smoking/Tobacco Use Status: Current every day Tobacco Type: cigarettes Quit status: considering quitting Second Hand Exposure: Yes Alcohol Intake: never Drug use: Never Substance use type: does not use and prescription drug Caregiver/Support person: No Household members: none Housing: apartment Pets and animals: No Sexually active: Yes Do you think of yourself as: straight/heterosexual Current gender identity: female What is your relationship status?: How often do you talk on the phone with friends or family?: three or more times per week How often do you get together with friends or relatives?: once per week How often do you attend jainism or hoahaoism services?: 1-3 times per year Do you belong to any clubs or organized social groups?: no Panel score (0-1 are the most socially isolated patients): 1 What type of physical activity do you participate in: none Marcie/Zoroastrian: Bahai Special marcie needs: No Do you feel safe at home: Yes Do you feel safe in your relationship?: Yes Exam Const General: cooperative, healthy appearing and no acute distress HENMT Head: normal to inspection Face and sinus: normal facial exam Eyes General: appearance normal, both eyes and all related structures Pupils: PERRL EOM: EOM intact bilaterally Neck Neck: normal visual inspection and No submandibular swelling Lymphatic: no lymphadenopathy noted Chest Chest: normal inspection of the chest and tenderness (L anterior chest tenderness) Chest/axillae images: 1. Localized area of left anterior chest tenderness. No rash or trauma noted. Resp Effort & Inspection: normal respiratory effort and able to speak in complete se ntences Auscultation: clear to auscultation bilaterally Cardio Rate: regular rate Rhythm: regular rhythm GI Inspection: normal to inspection and obesity Palpation: soft, not firm, not rigid and nontender Auscultation: normal bowel sounds Skin General skin exam: no rashes or lesions noted Neuro General: alert, awake and oriented x3 Cognition: normal cognition Speech: speech normal Motor: muscle tone normal throughout Sensory Exam: no sensory deficits noted Extrem General: normal to inspection, full ROM and no edema Psych Appearance: grossly normal Mental Status: mental status grossly normal Speech and Movement: speech and movement normal Affect: normal affect
[2018-07-10 10:36] LABS: Abs Immature Grans 0.01 k/cumm (0.0-0.09); Absolute Basophil Count 0.02 k/cumm (0.0-0.2); Absolute Eosinophil Count 0.14 k/cumm (0.0-0.7); Absolute Lymphocyte Count 2.16 k/cumm (1.2-3.4); Absolute Monocyte Count 0.42 k/cumm (0.11-0.7); Absolute Neutrophil Count 3.76 k/cumm (1.2-6.7); Basophils % 0.3; Eosinophils % 2.2; HCT 43.4 % (36.0-46.0); HGB 14.5 g/dL (12.0-15.5); Immature Grans % 0.2; Lymphocytes % 33.2; Mean Corp. HGB Concentration 33.4 g/dL (32.0-36.0); Mean Corpuscular Hemoglobin 32.6 pg (27.0-33.0); Mean Corpuscular Volume 97.5 fL (80-95); Mean Platelet Volume 10.7 fL (8.0-11.0); Monocytes % 6.5; Neutrophils % 57.6; Platelet Count 162 x1000/uL (130-400); RBC 4.45 m/cumm (4.00-5.20); RBC Distribution Width 13.6 % (11.7-14.6); White Blood Cell Count 6.51 k/cumm (4.4-10.8)
[2018-07-10 10:57] LABS: ALT 24 U/L (12-78); AST 17 U/L (15-37); Alkaline Phosphatase 96 U/L (46-116); Anion Gap 8.1 mmol/L (3-11); BUN 18 mg/dL (7-18); Bilirubin, Total 0.3 mg/dL (0.2-1.0); CO2 26.9 mmol/L (21.0-32.0); CREATININE 0.62 mg/dL (0.55-1.02); Calcium 9.3 mg/dL (8.5-10.1); Chloride 106 mmol/L (98-107); Glucose 98 mg/dL (70-100); Potassium 4.1 mmol/L (3.5-5.1); Sodium 141 mmol/L (136-145); Total Protein 7.5 g/dL (6.4-8.2)
[2018-07-10 10:58] LABS: Troponin I < 0.02 ng/mL (0.00-0.06)
--- NOTE | 2018-07-10 11:39 | DI.VRAD_ITS ---
EXAM: XR Chest, 2 Views EXAM DATE/TIME: 07/10/2018 10:22 AM CLINICAL HISTORY: 58 years old, female; Signs and symptoms; Other: Chest pain, R/O acute disease TECHNIQUE: Imaging protocol: XR of the chest, 2 views. COMPARISON: CR CHEST 2 VIEWS PA,LAT 10/01/2012 8:10 AM FINDINGS: Lungs: Unremarkable. No consolidation. Pleural space: Unremarkable. No pleural effusion. No pneumothorax. Heart/Mediastinum: Unremarkable. No cardiomegaly. Bones/joints: Mild dextroscoliosis. IMPRESSION: No acute findings. Dictated and Authenticated by: Rick Mejia MD. Ordering:MICHELLE Tsang MD
[2018-07-10] MEDS: Ketorolac 30 MG/ML VIAL IVP (11:47)
[2018-07-10 13:55] LABS: Troponin I < 0.02 ng/mL (0.00-0.06)
== END 2018-07-10 14:31 | disposition left against medical advice (07) ==
PROVIDERS: Emergency Provider Physician Assistant; PCP Family Medicine
DX: R07.9 Chest pain, unspecified (principal)
CPT/HCPCS: 36415; 80053; 93005; 96374; 99285; 71046; 83735; 84484; 85025; 93010; J1885

== ENCOUNTER 2018-07-16 01:16 | Outpatient (CLI) | payer BC, SELFPAY ==
--- NOTE | 2018-07-16 06:56 | MERGEMPI_ITS ---
*[facility]* *[facility]* [address] [place] [address] Myocardial Perfusion Imaging - SPECT Regadenoson Date of study: 07/16/2018 *PATIENT PRESENTATION* Height: 161.3cm (63.5in) Blood Pressure: Weight: 104.5kg (230lb) BSA: 2.22m^2 Referring physician: Chiquita Herman Ordering physician: Kaitlynn Peralta Impressions: Normal study after pharmacologic stress. Summary: 1. Myocardial perfusion imaging: No myocardial perfusion defects noted. 2. The calculated left ventricular ejection fraction after stress: 61%. LV global systolic function is normal. No left ventricular regional motion abnormality. Indication: R07.9. History: REASON FOR TESTING: PATIENT PRESENTED TO THE ER 07/10/18 WITH CHEST PAIN. SHE STATES HER PAIN STARTED ON THURSDAY PRIOR TO PRESENTING TO THE ER WITH A SERIES OF 4 SHOOTING CHEST PAINS IN HER LEFT AXILLA WITH RADIATION TO LEFT NECK. THURSDAY SHE HAD LEFT ARM NUMBNESS AND TINGLING. THURSDAY SHE REPORTS SHE HAD NAUSEA WITH VOMITING, AND LEFT ARM NUMBNESS AND TINGLING. UPON ARRIVAL TO TESTING TODAY SHE REPORTS LEFT ARM ACHINESS. SIGNIFICANT PAST MEDICAL HISTORY: PATIENT HAD A BROTHER WHO IN HIS FORTIES OF AN ND. SMOKING STATUS: PATIENT HAS SMOKED FOR 42 YEARS 1 PPD. SINCE FEBRUARY PATIENT HAS BEEN USING A NICOTINE PATCH 2 TIMES PER WEEK AND CONTINUES TO SMOKE 1/2 PACK TO 3/4 PACK PER DAY AT THIS TIME. EXERCISE ROUTINE: LIMITED AT THIS TIME D/T ANKLE FRACTURE IN DECEMBER 2017. Risk factors: Family history of coronary artery disease. Current tobacco use. Dyslipidemia. Cholesterol: 277mg/dl. HDL: 54mg/dl. LDL: 195mg/dl. Triglycerides: 64mg/dl. ALLERGIES: LATEX, PENICILLIN, CARBAPENEMS, NSAIDS, SULFA, ADHESIVES. MEDICATIONS: NICOTINE PATCH 21 MG TWO TIMES A WEEK, CITALOPRAM 20 MG DAILY, CELEBREX 200 MG DAILY, MULTIVITAMIN DAILY, FUROSEMIDE 20 MG PRN (USUALLY SUMMER MONTHS), ALBUTEROL SULFATE HFA 90 MCG QID PRN, ASPIRIN 81 MG DAILY. Imaging Technique: Protocol: Regadenoson. Acquisition: Gated SPECT; 1 day - rest/stress. The patient was imaged in the supine position. Attenuation correction used. Isotope administration: - Rest. Tc[99m]-sestamibi. Dose: 11mCi. Injection time: 08:30 AM. Injection to stress time: 00:45. - Stress. Tc[99m]-sestamibi. Dose: 34mCi. Injection time: 10:15 AM. 1-2 min before end of exercise Baseline ECG: SINUS BRADYCARDIA. HR 52 BPM. Stress protocol: +--------+--+ + + !Stage !HR!BP (mmHg) !Comments ! +--------+--+ + + !Baseline!52!150/60 (90) ! ! +--------+--+ + + !1 min !92!130/70 (90) !Inject Regadenoson.! +--------+--+ + + !3 min !85!140/80 (100)! ! +--------+--+ + + !6 min !79!140/70 (93) ! ! +--------+--+ + + !9 min !73!142/70 (94) ! ! +--------+--+ + + * Stress results: UNABLE TO DO WALKING STRESS TEST DUE TO ANKLE FRACTURE. STRESS TEST ENDED IN 9 MINUTES 10 SECONDS. NORMAL HEART RATE AND BLOOD PRESSURE RESPONSE TO LEXISCAN INJECTION. NO ECTOPY. NO ANGINA. NO SIGNIFICANT ST SEGMENT CHANGES. The rate-pressure product for the peak heart rate and blood pressure was 24106lf Hg/min. Myocardial perfusion: Imaging information: gated. Left ventricular size is normal. No myocardial perfusion defects noted. Ventricular Function (Wall Motion): The calculated left ventricular ejection fraction after stress: 61%. LV global systolic function is normal. No left ventricular regional motion abnormality. Study data: Chiquita Herman MD supervised and was readily available during the procedure. This study was interpreted by [facility]. Study status: Routine. Consent: The risks, benefits, and alternatives to the procedure were explained to the patient and informed consent was obtained. Procedure: Initial setup. A baseline ECG was recorded. Surface ECG leads and manual cuff blood pressure measurements were monitored. Heart sounds: Normal. Lung sounds: Normal. Regadenoson stress test. Stress testing was performed, with regadenoson by intravenous bolus, for a total dose of 0.4mgover 10.00sec, followed by a 5ml saline flush. The infusion was terminated due to per protocol. Study completion: All catheters inserted during the procedure were removed. The patient tolerated the procedure well and was discharged from the lab. Discharge: The patient left the laboratory in stable condition. Birthdate: Patient birthdate: 1960. Sex: Gender: female. Study date: Study date: 07/16/2018. Study time: 00:01 AM. Signature Documentation: - The imaging portion of this study was interpreted by Nuclear Chief Medical Technologist Chiquita Herman MD. - The imaging portion of this study was interpreted by Nuclear Radiologist Jersey Palma MD. - The Stress ECG portion of this study was interpreted by Chiquita Herman MD. Electronically signed by Chiquita Herman 07/16/2018 15:45
[2018-07-16] MEDS: Regadenoson 0.4 MG/5 ML SYR IVP (10:00)
== END 2018-07-16 01:36 ==
PROVIDERS: PCP Family Medicine; Visit Provider Family Medicine
DX: R07.9 Chest pain, unspecified (principal)
CPT/HCPCS: 78452; 93017; J2785

== ENCOUNTER 2018-09-30 01:18 | Outpatient (CLI) | payer BC, SELFPAY ==
--- NOTE | 2018-09-30 15:20 | DI.MAMMO_ITS ---
SYMPTOM/DIAGNOSIS: SCREENING Z12.31 MAMMOGRAMS: Mammograms were interpreted according to the usual protocol including computer analysis with CAD system, tomosynthesis and C view imaging. Comparison with prior examinations. There is a skin fold in the inferior posterior aspect of the left breast on the medial lateral oblique view. The patient refused repeat imaging of the left breast. Breast density category B. No suspicious masses or microcalcifications are seen. There are scattered nodules in the breast which appear stable. The skin and axilla are unremarkable. IMPRESSION: No definite evidence for malignancy at this time. A repeat right medial lateral oblique view should be obtained due to patient positioning. This should be obtained at no additional expense to the patient and at their convenience. Category 0. Breast density category B. MQSA ASSESSMENT OF FINDINGS: Incomplete: Needs additional imaging evaluation. Category 0. Patient will receive a letter notifying them of these results. BI-RADS category B. There are scattered areas of fibroglandular density.
== END 2018-09-30 01:38 ==
PROVIDERS: PCP Nurse Practitioner; Visit Provider Nurse Practitioner
DX: Z12.31 Encounter for screening mammogram for malignant neoplasm of breast (principal); R92.8 Other abnormal and inconclusive findings on diagnostic imaging of breast
CPT/HCPCS: 77063; 77067

== ENCOUNTER 2018-10-05 01:03 | Outpatient (CLI) | payer BC, SELFPAY ==
--- NOTE | 2018-10-05 10:17 | DI.MAMMO_ITS ---
SYMPTOM/DIAGNOSIS: SKIN FOLD INFERIOR POSTERIOR LT BREAST , REPEAT MEDIAL LATERAL OBLIQUE VIEW. LEFT MAMMOGRAM: Additional images are interpreted according to the usual protocol including tomosynthesis and 2D imaging. Left MLO view was repeated due to skin fold on the exam of 30 September 2018. There are stable areas of nodularity in the inferior left breast. No suspicious masses or suspicious microcalcifications are seen in either breast. IMPRESSION: Category 2, negative mammogram with benign findings. Yearly screening mammography is recommended. Breast density category B. MQSA ASSESSMENT OF FINDINGS: Negative with benign findings. Category 2. Patient will receive a letter notifying them of these results. BI-RADS category B. There are scattered areas of fibroglandular density.
== END 2018-10-05 01:23 ==
PROVIDERS: PCP Nurse Practitioner; Visit Provider Nurse Practitioner
DX: Z12.31 Encounter for screening mammogram for malignant neoplasm of breast (principal); N64.59 Other signs and symptoms in breast
CPT/HCPCS: 77063; 77067

== ENCOUNTER 2018-10-28 00:28 | Outpatient (CLI) | payer OTHER, SELFPAY ==
--- NOTE | 2018-10-28 15:00 | DI.DEXA_ITS ---
EXAM: XR DEXA BONE DENSITY W/WO JAVIER INDICATION: Z96.7 PRESENCE OF BONE AND TENDON IMPLANTS, Z87.81 HX TRAUMATIC FRACTURE, ASSESS FOR OST EOPENIA. COMPARISON: No exams were available for comparison TECHNIQUE: 2D digital imaging was performed. DXA scan was performed according to the usual protocol. FINDINGS: Please note that the lateral vertebral scanogram shows no evidence of vertebral compression fracture. Left hip scanning shows T-score of -1.1 with left femoral neck T-score of -1.2. Lumbar spine scann ing shows T-score of -0.2. IMPRESSION: Findings consistent with osteopenia according to the WHO criteria
== END 2018-10-28 00:48 ==
PROVIDERS: PCP Nurse Practitioner; Visit Provider Orthopaedic Surgery
DX: M85.88 Other specified disorders of bone density and structure, other site (principal); Z87.81 Personal history of (healed) traumatic fracture
CPT/HCPCS: 77080

== ENCOUNTER 2019-03-18 07:28 | Day surgery (SDC) | payer MEDICAID, SELFPAY ==
[2019-03-18 07:59] VITALS: BP 140/79; PULSE 80; RESP 16; TEMP 36.5; O2SAT 96
[2019-03-18] MEDS: Lactated Ringers 1,000 ML 80 ML IV (08:23)
--- NOTE | 2019-03-18 08:58 | W.PM.DSUDISC ---
Discharge Plan Disposition Patient Disposition: HOME Condition: Good Discharge Details Reason For Visit: Colonoscopy Attending Provider: Tracie Oliveros Primary Care Provider: Dorothea Quintanilla Home Meds and New Rx's Prescriptions: Continued cholecalciferol (vitamin D3) 1,000 unit capsule 1,000 unit PO DAILY RF: 0 aspirin [Adult Low Dose Aspirin] 81 mg tablet,delayed release (DR/EC) 81 mg PO DAILY RF: 0 furosemide 20 mg tablet 20 mg PO DAILY PRN (Reason: edema) Qty: 30 RF: 3 multivitamin [Daily Multi-Vitamin] 1 EACH tablet 1 ea PO daily prn RF: 0 albuterol sulfate [ProAir HFA] 90 mcg/actuation HFA aerosol inhaler 1 - 2 puff Inhalation QID PRN (Reason: bronchospasm) Qty: 1 RF: 0 celecoxib [Celebrex] 200 mg capsule 200 mg PO DAILY Qty: 30 RF: 3 citalopram 20 mg tablet 20 mg PO DAILY Qty: 90 RF: 3 carbidopa-levodopa [Sinemet] 10-100 mg tablet 1 tab PO HS PRN (Reason: RLS) Qty: 90 RF: 1 Discontinued polyethylene glycol 3350 17 gram/dose powder 238 g PO ONCE Qty: 238 RF: 0 bisacodyl 5 mg tablet,delayed release (DR/EC) 5 mg PO ONCE Qty: 4 RF: 0 Discharge Instructions Additional Instructions: Findings: Five small polyps were removed. My office will contact you with biopsy results. Follow up: Depending on biopsy results, you will need a colonoscopy in 2-3 years. Please call if you develop: fevers >101.5 Nausea or Vomiting Abdominal pain that is not transient DAY SURGERY UNIT POST COLONOSCOPY INSTRUCTIONS 1. Because there will be medication in your system for the next 24 hours, you may feel a little sleepy. Your coordination will be affected. Therefore: a. Do not drive or operate dangerous equipment for 24 hours. b. Do not drink alcohol beverages for 24 hours (not even beer). c. Plan to go home and rest for the day. 2. Generally there are no restrictions on your activity after a day or so has gone by, but you may feel a bit fatigued for a few days. 3 After you arrive home you may have a light meal and return to a normal diet as you can tolerate it without feeling sick to your stomach. 4. After surgery, you may feel pain or discomfort. This should be only transient, but if it persists please contact your doctor. 5. If there are any questions regarding the findings of your procedure, please feel free to contact your doctor. 6. If you are unable to contact your doctor with a problem, contact the hospital at [phone]. 7. Continue all your regular medications unless directed otherwise. I understand the above instructions and have no questions. Signature of Patient or Responsible Adult Escort Date/Time Name of Responsible Adult Escort Signature of Nurse Date/Time Activity:: Activity as Tolerated Diet:: As Tolerated Discharge Orders Discharge Orders: Discharge Order (Routine); Ordered 03/18/19 Ordered By: Tracie Oliveros DS: Diagnosis Discharge Diagnosis (1) Diverticulosis: Status: Acute (2) Colon polyps: Status: Acute
--- NOTE | 2019-03-18 09:42 | BOWEL_PTH ---
PATIENT: Hien Delgado LOC: [facility] U#:[id number] AGE/SX: 58/F ROOM: RE03/18/[address]: Tracie Oliveros MD : 1960 BED: DIS: 03/18/2019 SPEC #: [id number] RECD: 03/18/19 16:11 STATUS: MARISOL RE #: [id number] DEWEY: 03/18/19 09:[address]: Tracie Oliveros DEPT: Surgical Specimen RECD BY: Cinthya Reeder ENTERED: 03/18/19 16:14 SP TYPE: Bowel OTHR DR: Dorothea Quintanilla APRN Tissues: 1 - BIOPSY BOWEL 2 - BIOPSY BOWEL 3 - BIOPSY BOWEL Procedures: GROSS AND MICRO LEVEL 4 Comments: [id number]
[2019-03-18 10:35] VITALS: BP 130/73; PULSE 66; RESP 16; TEMP 36.3; O2SAT 100
--- NOTE | 2019-03-18 11:11 | COLE_ITS ---
DATE OF PROCEDURE: March 18, 2019 PREOPERATIVE DIAGNOSIS: History of colon polyps. POSTOPERATIVE DIAGNOSIS: 1. Colon polyps. 2. Diverticulosis. PROCEDURE: Colonoscopy with snare polypectomy and cold forceps polypectomy. SURGEON: Tracie Oliveros M.D. ANESTHESIA: General. INDICATIONS: This is a 58-year-old woman who had multiple colon polyps removed in 2014. In November of 2017 she had five adenomatous polyps and seven hyperplastic rectal polyps removed. There were two larger polyps at 18 and 20 cm that were tattooed. PROCEDURE: She was placed in the left Ravi position. Propofol was titrated to sedation. Digital re ctal examination revealed no abnormalities. The scope was advanced to the cecum without difficulty. The ileocecal valve and appendiceal orifice were clearly identified. Her prep was adequate. The sc ope was slowly withdrawn with no abnormalities seen within the ascending or transverse regions. In t he descending colon there were two approximately 7 mm polyps that were removed with snare polypectomy . Only one of these was retrieved, but were definitely benign in appearance. In the sigmoid region there was some diverticulosis present with the tattoo xie visible. The more proximal tattoo viktoria d id not have any residual polyp. The more distal area showed a < 1 cm residual polyp that was fairly flat such that the snare could not be put around it. I therefore removed it with the cold forceps. There was also an 8 mm polyp distal to this was removed with cold forceps and sent in the same specim en container. The patient had several hyperplastic polyps in the rectum, which were not all removed based on prior pathology and appearance. There was a larger polyp that I did remove with the snare a nd retrieved. There was a small amount of bleeding that was nicely controlled with hemostatic clip a pplication. Retroflex view showed no other abnormalities. She tolerated the procedure well and was stable to recovery. It is anticipated she will need a colonoscopy in 2 to 3 years depending on polyp pathology. cc: Dorothea Quintanilla N.P.
== END 2019-03-18 11:55 | disposition home or self-care (01) ==
PROVIDERS: PCP Nurse Practitioner; Visit Provider Surgery
PROC: 0DJD8ZZ Inspection of Lower Intestinal Tract, Via Natural or Artificial Opening Endoscopic (ICD-10-PCS; CPT 45378; principal; 2019-03-18 09:00)
DX: Z12.11 Encounter for screening for malignant neoplasm of colon (principal); K63.5 Polyp of colon; K62.1 Rectal polyp; K57.30 Diverticulosis of large intestine without perforation or abscess without bleeding; Z86.010 Personal history of colon polyps; Z87.19 Personal history of other diseases of the digestive system; F17.210 Nicotine dependence, cigarettes, uncomplicated
CPT/HCPCS: 45385; 45380; 88305; J2704

== ENCOUNTER 2019-10-18 11:39 | Outpatient (CLI) | payer MEDICAID, SELFPAY ==
--- NOTE | 2019-10-18 11:00 | DI.RAD_ITS ---
EXAM: XR ANKLE RT COMPLETE CLINICAL HISTORY: s/p right ORIF ankle TECHNIQUE: 2D digital imaging was performed. COMPARISON: No exams were available for comparison FINDINGS: There has been no change in the positioning of the orthopedic hardware. There is mild narrowing of t he tibia talar joint space. No talar dome defect is identified.
== END 2019-10-18 11:59 ==
PROVIDERS: PCP Nurse Practitioner; Referring Provider Nurse Practitioner; Visit Provider Physician Assistant
DX: Z96.698 Presence of other orthopedic joint implants (principal)
CPT/HCPCS: 73610

== ENCOUNTER 2019-11-11 03:46 | Outpatient (CLI) | payer MEDICAID, SELFPAY ==
[2019-11-12 21:12] LABS: COVID-19 RT-PCR Result NEGATIVE (Negative)
== END 2019-11-11 04:06 ==
PROVIDERS: PCP Nurse Practitioner; Visit Provider Orthopaedic Surgery
DX: Z11.59 Encounter for screening for other viral diseases (principal); Z01.818 Encounter for other preprocedural examination
CPT/HCPCS: U0003

== ENCOUNTER 2019-11-14 07:19 | Day surgery (SDC) | payer OTHER, SELFPAY ==
[2019-11-14 07:32] VITALS: BP 143/83; PULSE 66; RESP 18; TEMP 36.1; O2SAT 98
[2019-11-14] MEDS: Lactated Ringers 1,000 ML 80 ML IV (08:04)
[2019-11-14] MEDS: Lidocaine 1% Multi-Dose 50 ML VIAL (09:11)
--- NOTE | 2019-11-14 09:31 | W.PM.DSUDISC ---
Discharge Plan Disposition Patient Disposition: HOME Condition: Good Discharge Details Reason For Visit: REMOVE PAINFUL HARDWARE R ANKLE Attending Provider: Jack Ansari Primary Care Provider: Dorothea Quintanilla Home Meds and New Rx's Prescriptions: New hydrocodone-acetaminophen 5-325 mg tablet 1 tab PO Q6H PRNQty: 7 RF: 0 Continued cholecalciferol (vitamin D3) 1,000 unit capsule 1,000 unit PO DAILY RF: 0 aspirin [Adult Low Dose Aspirin] 81 mg tablet,delayed release (DR/EC) 81 mg PO DAILY RF: 0 furosemide 20 mg tablet 20 mg PO DAILY PRN (Reason: edema) Qty: 30 RF: 3 multivitamin [Daily Multi-Vitamin] 1 EACH tablet 1 ea PO daily prn RF: 0 albuterol sulfate [ProAir HFA] 90 mcg/actuation HFA aerosol inhaler 1 - 2 puff Inhalation QID PRN (Reason: bronchospasm) Qty: 1 RF: 0 citalopram 20 mg tablet 20 mg PO DAILY Qty: 90 RF: 3 carbidopa-levodopa [Sinemet] 10-100 mg tablet 1 tab PO HS PRN (Reason: RLS) Qty: 90 RF: 1 celecoxib [Celebrex] 200 mg capsule 200 mg PO DAILY Qty: 30 RF: 3 Discharge Instructions Additional Instructions: Elevate R ankle when sitting. May remove dressings, shower, and get incision wet after 48 hours. May leave incision uncovered when it is dry and sealed. Walk as much as your discomfort allows. Take tylenol for mild pain. Take hydrocodone for breakthru pain, if needed. Apply ice to operative site 3-4 times/day for 1 hour each time. Follow up with in 2 weeks. Referrals: Jack Ansari MD [ [facility] STAFF PHYSICIAN] - (f/u in 2 weeks.) Activity:: Activity as Tolerated Remove Dressings/Wound Care:: 48 hours Shower/Bathe:: 48 hours Diet:: As Tolerated Discharge Orders Discharge Orders: Discharge Order (Routine); Ordered 11/14/19 Ordered By: Jack Ansari DS: Diagnosis Discharge Diagnosis (1) Painful orthopaedic hardware: Status: Acute
[2019-11-14] MEDS: HYDROcodone 5/Acetaminophen 325 TAB PO (09:58)
[2019-11-14 10:31] VITALS: BP 137/71; PULSE 55; RESP 16; TEMP 36.2; O2SAT 100
--- NOTE | 2019-11-14 16:05 | W.PM.OP ---
Date of service: 11/14/19 Time of Service: 09:05 Operative Note Operative Note DATE OF PROCEDURE: 11/14/19 PRE-OP DIAGNOSIS: Painful hardware right ankle POST-OP DIAGNOSIS: same PROCEDURE: Removal of painful hardware right ankle SURGEON: Jack Ansari ANESTHESIA: MAC COMPLICATIONS: None Patient was transported to: PACU Patient's condition: stable Indications: Is a 59-year-old white female who underwent an ORIF of a closed trimalleolar fracture of her right ankle 2 years ago. The fracture is healed and she has had a excellent clinical result. She has been complaining of increasing pain on the medial side of her ankle with activities. Prominent ends of K wires could be palpated just distal to the tip of the medial malleolus. These prominent K wires were painful to touch. Since the fracture is healed, removal of the pins was recommended to alleviate her pain. Risk and complication of the procedure were explained patient in detail preop. Procedure Description: Patient was taken to the operating room on 11/14/2019 and placed supine the operative table. MAC anesthesia was administered. The right foot and ankle were prepped and draped free in usual sterile fashion. The painful ends of the K wires were palpated. I infiltrated the old surgical scar with point 5% Marcaine with epinephrine solution. I then made an incision in line with the surgical scar overlying the palpable pin. The incision was about an inch and 1/2 to 2 inches. I carried the incision through the skin and directly down to the prominent K wires. The K wires were loose and were easily removed with a needle walters. The wound was irrigated with saline solution the depths of the wound was then infiltrated 0.5% Marcaine with epinephrine solution. The thick fascia over the pin sites were approximated with a couple interrupted 2-0 Vicryl sutures. Skin and subcu were approximated with interrupted 4-0 nylon sutures. Wounds dressed with Xeroform gauze sterile gauze 4 x 4's then wrapped with a 4 inch Roly bandage. Patient tolerated seizure well was discharged to the recovery room good condition. Patient was discharged home from the surgery unit and fully recovered from her MAC anesthesia. She is given instructions try to elevate her right foot whenever sitting. She may be weightbearing as tolerated to the right lower extremity. She may remove her dressing shower and get her incision wet after 72 hours. She is to apply ice to the surgical site 4 times a day for an hour each time. She may leave the wound uncovered when is dry and sealed. She will take Tylenol for mild pain. She is given prescription for breakthrough pain of hydrocodone with APAP 5/325. Follow-up with Dr. Ansari in 2 weeks.
== END 2019-11-14 10:45 | disposition home or self-care (01) ==
PROVIDERS: PCP Nurse Practitioner; Visit Provider Orthopaedic Surgery
PROC: (CPT 20680; principal; 2019-11-14 09:00)
DX: T84.84XA Pain due to internal orthopedic prosthetic devices, implants and grafts, initial encounter (principal)
CPT/HCPCS: 20680; J1885; J2405; J2704

== ENCOUNTER 2019-12-13 00:58 | Outpatient (CLI) | payer MEDICAID, SELFPAY ==
--- NOTE | 2019-12-13 11:42 | DI.MAMMO_ITS ---
EXAM: MG MAMMO SCREENING CLINICAL HISTORY: screening,Z12.39 TECHNIQUE: Bilateral full field digital CC and MLO mammographic images were obtained with 3D tomosyn thesis and utilizing computer aided detection (CAD). COMPARISON: Available for comparison. FINDINGS: Masses/Architectural Distortion: Small asymmetric density in the upper right breast on the mediolater al oblique view. Microcalcifications: No suspicious pleomorphic-type are seen. Skin Thickening/Nipple Retraction: None. IMPRESSION: 1. Asymmetric density in the upper right breast on the MLO view. 2. Spot compression view and right breast ultrasound are recommended for further evaluation. BI-RADS Category 0 - Assessment Incomplete: Need additional imaging evaluation Breast Density - Category B - Scattered areas of fibroglandular density A negative radiographic report should not delay biopsy if a dominant or clinically suspicious mass is present. Up to ten percent of cancers are not identified on mammography. A negative report may reinforce clinical impression. Adenosis and dense breasts may obscure an underlying neoplasm. False positive reports average 6 to 10%. Patient will receive a letter notifying them of these results.
== END 2019-12-13 01:18 ==
PROVIDERS: PCP Nurse Practitioner; Visit Provider Nurse Practitioner Family
DX: Z12.31 Encounter for screening mammogram for malignant neoplasm of breast (principal); R92.8 Other abnormal and inconclusive findings on diagnostic imaging of breast
CPT/HCPCS: 77063; 77067

== ENCOUNTER 2019-12-13 03:41 | Outpatient (CLI) | payer MEDICAID, SELFPAY ==
[2019-12-13 13:07] LABS: Calculated LDL 233 mg/dL (<100); Cholesterol 303 mg/dL (<200); HDL Cholesterol 57 mg/dL (40-60); Triglyceride 68 mg/dL (<150)
== END 2019-12-13 04:01 ==
PROVIDERS: PCP Nurse Practitioner; Visit Provider Nurse Practitioner
DX: E78.00 Pure hypercholesterolemia, unspecified (principal)
CPT/HCPCS: 36415; 80061

== ENCOUNTER 2019-12-16 04:09 | Outpatient (CLI) | payer MEDICAID, SELFPAY ==
--- NOTE | 2019-12-16 | DI.US_ITS ---
EXAM: MG MAMMO SCREEN CALL BACK UNI MG MAMMO SCREEN CALL BACK UNI and U/S breast RT limited CLINICAL HISTORY: F/U MAMMO, SMALL ASYMMETRIC DENSITY UPPER RT BREAST ON MLO VIEW. TECHNIQUE: Craniocaudal and mediolateral oblique Full Field Digital Mammography views of the right b reast with Computer Aided Diagnosis followed by Tomosynthesis and right breast ultrasound. COMPARISON: Priors available for comparison. FINDINGS: Mammography/Tomosynthesis: Masses/Architectural Distortion: None seen. Microcalcifictions: No suspicious pleomorphic-type are seen. Skin Thickening/Nipple Retraction: None. Right breast US: Echotexture: Normal appearance of the glandular tissue. Shadowing: No suspicious foci. Cyst: None. Solid lesions: None seen. Ductal dilation: None. IMPRESSION: 1. No evidence of malignancy is noted. 2. A six-month follow-up right mammogram is recommended for re-evaluation. 3. The findings were discussed with the patient on the date of the examination. BI-RADS Category 3 - 6 month - Probably Benign Finding: Recommend follow-up mammography in 6 months Breast Density - Category B - Scattered areas of fibroglandular density A negative radiographic report should not delay biopsy if a dominant or clinically suspicious mass is present. Up to ten percent of cancers are not identified on mammography. A negative report may reinforce clinical impression. Adenosis and dense breasts may obscure an underlying neoplasm. False positive reports average 6 to 10%. Patient will receive a letter notifying them of these results.
== END 2019-12-16 04:29 ==
PROVIDERS: PCP Nurse Practitioner; Visit Provider Nurse Practitioner Family
DX: R92.8 Other abnormal and inconclusive findings on diagnostic imaging of breast (principal)
CPT/HCPCS: 76642; 77063; 77067

== ENCOUNTER 2019-12-19 16:12 | Outpatient (REF) | payer MEDICAID, SELFPAY | END 2019-12-19 16:32 | LOC: LBN 16:12 | PROVIDERS: PCP Nurse Practitioner; Visit Provider Physician Assistant | DX: N39.0 Urinary tract infection, site not specified (principal) | CPT/HCPCS: 87077; 87086; 87186 ==

== ENCOUNTER 2020-01-13 15:25 | Outpatient (REF) | payer MEDICAID, SELFPAY | END 2020-01-13 15:45 | LOC: LBN 15:25 | PROVIDERS: PCP Nurse Practitioner; Visit Provider Student in an Organized Health Care Education/Training Program | DX: R39.15 Urgency of urination (principal); R39.9 Unspecified symptoms and signs involving the genitourinary system | CPT/HCPCS: 87077; 87086; 87186 ==

== ENCOUNTER 2020-02-13 15:51 | Outpatient (REF) | payer MEDICAID, SELFPAY | END 2020-02-13 16:11 | LOC: LBO 15:51 | PROVIDERS: PCP Nurse Practitioner; Visit Provider Nurse Practitioner | DX: R82.998 Other abnormal findings in urine (principal) | CPT/HCPCS: 87077; 87086; 87186 ==

== ENCOUNTER 2020-02-21 10:51 | Outpatient (CLI) | payer MEDICAID, SELFPAY ==
[2020-02-22 20:08] LABS: COVID-19 RT-PCR UVMMC Result Negative (Negative)
== END 2020-02-21 11:11 ==
PROVIDERS: PCP Nurse Practitioner; Visit Provider Nurse Practitioner
DX: Z20.822 Contact with and (suspected) exposure to COVID-19 (principal)
CPT/HCPCS: U0003

== ENCOUNTER 2020-02-28 01:30 | Outpatient (CLI) | payer MEDICAID, SELFPAY ==
--- NOTE | 2020-02-28 | DI.US_ITS ---
EXAM: US PELVIS TRANSVAGINAL CLINICAL HISTORY: LT PELVIC PAIN, R10.2. TECHNIQUE: Transabdominal and transvaginal pelvic ultrasound was performed using standard protocol. COMPARISON: No exams were available for comparison FINDINGS: KIDNEYS: Kidneys are symmetric in size. No evidence of renal calculi. No evidence of hydronephrosis. No renal mass or cyst identified. UTERUS: Position: Anteverted. Size: 5.6 long by 2.5 AP by 2.6 transverse cm Endometrium: 0.1 cm. Normal for patient's menstrual status. Myometrium: Multiple uterine fibroids. The largest measures 2.4 x 2.1 x 2.4 cm and is located acquisitions assistant iorly. Cervix: Unremarkable. OVARIES: Right: 0.9 x 0.6 x 0.6 cm Cyst or mass: None. Left: 1 x 0.7 x 0.7 cm Cyst or mass: None. DOPPLER: Color: Symmetric and uniform flow to both ovaries. No hyperemia. CUL-DE-SAC: Free fluid: None. Other: None. IMPRESSION: 1. Normal sonographic appearance of the kidneys. 2. Fibroid uterus. Normal endometrial stripe. 3. Unremarkable bilateral ovaries. DATA REPOSITORY:
== END 2020-02-28 01:50 ==
PROVIDERS: PCP Nurse Practitioner; Visit Provider Nurse Practitioner
DX: R10.2 Pelvic and perineal pain (principal); D25.9 Leiomyoma of uterus, unspecified
CPT/HCPCS: 76830; 76856

== ENCOUNTER 2020-04-26 18:05 | Observation (INO) | payer OTHER, MEDICAID, SELFPAY ==
[2020-04-26 18:00] VITALS: BP 159/70; PULSE 73; RESP 16; TEMP 36.5; O2SAT 99
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
--- NOTE | 2020-04-26 18:30 | RT.EKG_ITS ---
APPROVED REPORT Exam: Resting ECG Patient Location: E HR:77 bpm ECG Measurements Heart Rate 77 AXIS NC 185 P 53 QRSd 78 QRS -8 QT 398 T 39 QTc 451 Conclusion Sinus rhythm...normal P axis, V-rate 60- 99 I have reviewed and interpreted ECG and agree with software generated interpretation.
[2020-04-26 19:16] LABS: Abs Immature Grans 0.04 10^3/uL (0.0-0.06); Absolute Basophil Count 0.03 10^3/uL (0.0-0.2); Absolute Eosinophil Count 0.08 10^3/uL (0.0-0.7); Absolute Lymphocyte Count 1.67 10^3/uL (1.2-3.4); Absolute Monocyte Count 0.56 10^3/uL (0.1-0.8); Absolute Neutrophil Count 6.38 10^3/uL (1.2-6.7); Basophils % 0.3; Eosinophils % 0.9; HCT 45.1 % (36.0-46.0); HGB 14.7 g/dL (11.2-15.7); Immature Grans % 0.5; Lymphocytes % 19.1; MCHC 32.6 % (32.0-36.0); MCV 98.3 fL (80-95); MPV 10.8 fL (8.0-11.0); Monocytes % 6.4; Neutrophils % 72.8; Nucleated RBC 0 %; Platelet Count 153 10^3/uL (130-400); RBC 4.59 10^6/uL (3.93-5.22); RDW 12.8 % (11.7-14.6); RDW-SD 46.5 fL; WBC 8.76 10^3/uL (4.4-10.8)
[2020-04-26] MEDS: Normal Saline 1,000 ML 1000 ML IV (19:18)
[2020-04-26 19:30] LABS: INR 0.9 (0.9-1.1); PTT Activated 22.6 sec (21.0-27.5); Prothrombin Time 9.3 sec (9.3-11.0)
[2020-04-26 19:33] LABS: ALT 34 U/L (14-59); AST 27 U/L (15-37); Albumin 3.9 g/dL (3.4-5.0); Alkaline Phosphatase 99 U/L (46-116); Anion Gap 6.5 mmol/L (3-11); BUN 23 mg/dL (7-18); Bilirubin, Total 0.3 mg/dL (0.2-1.0); CO2 28.5 mmol/L (21.0-32.0); CREATININE 0.8 mg/dL (0.55-1.02); Calcium 10.2 mg/dL (8.5-10.1); Chloride 105 mmol/L (98-107); Glucose 114 mg/dL (74-106); Lipase 99 U/L (73-393); Sodium 140 mmol/L (136-145); Total Protein 7.6 g/dL (6.4-8.2)
[2020-04-26 19:37] LABS: Troponin I < 0.05 ng/mL (<0.06)
--- NOTE | 2020-04-26 20:08 | NUR.NOTE ---
RAC IV infiltrated. Removed.
[2020-04-26 20:15] VITALS: BP 151/64; PULSE 74; RESP 16; O2SAT 96
[2020-04-26] MEDS: Normal Saline Flush 10 ML SYR IVP (20:40)
[2020-04-26] MEDS: Normal Saline - Diluent 50 ML VIAL IV (20:41)
[2020-04-26] MEDS: Omnipaque 350 MG/ML 100 ML BTL IJ (20:41)
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
[2020-04-26 21:26] VITALS: BP 151/64; PULSE 73; RESP 16; O2SAT 96
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
[2020-04-26] MEDS: ceFAZolin 2 GM/50 ML BAG IVPB (21:59)
[2020-04-26] MEDS: Acetaminophen 325 MG TAB 650 MG PO (22:06)
[2020-04-26] MEDS: oxyCODONE 5 MG TAB PO (22:17)
[2020-04-26 22:22] VITALS: BP 113/88; PULSE 70; RESP 16; O2SAT 97
[2020-04-26 22:38] LABS: COVID-19 PCR Negative (Negative)
[2020-04-26 23:12] VITALS: BP 138/89; PULSE 68; RESP 18; TEMP 36.3; O2SAT 97
[2020-04-26 23:13] VITALS: BP 138/89; PULSE 68; RESP 18; TEMP 36.3; O2SAT 97
[2020-04-26] MEDS: DEXTROSE 5%-0.45% SALINE 1,000 ML 30 ML IV (23:56)
[2020-04-27] VITALS (8 sets, daily range): BP systolic 138–173; BP diastolic 70–88; PULSE 68–86; RESP 17–20; TEMP 36.2–37.1; O2SAT 91–100
[2020-04-27] MEDS: Normal Saline Flush 10 ML SYR IVP ×3 (03:33→08:04)
[2020-04-27] MEDS: MORPHine 10 MG/ML VIAL IVP ×2 (03:33→08:04)
[2020-04-27] MEDS: ceFAZolin 1 GM/50 ML BAG IVPB ×2 (06:02→18:36)
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
--- NOTE | 2020-04-27 11:25 | INITIAL_ITS ---
- If Service Date Differs Date of service: 04/27/20 Time of Service: 11:27 Care Management Initial Assess REASON FOR HOSPITALIZATION:: left wrist fracture PAST MEDICAL HISTORY/PAST SURGICAL HISTORY:: PMH: BMI 40.0-44.9, adult. Chronic pain of right ankle. Chronic UTI (urinary tract infection). Closed bimalleolar fracture of right ankle. X-rays had shown question of trimalleolar fracture, however there was no fragment of posterior malleolus noted int raoperatively. Closed right trimalleolar fracture. Colorectal polyp detected on colonoscopy. 11/24/17-SESSILE SERRATED ADENOMA. Daytime somnolence. Diverticulosis. Elevated cholesterol. Hx of fracture of ankle. Hyperlipidemia. Insomnia. Left breast mass. Lung cancer screening declined by patient. Restless leg. RLS (restless legs syndrome). Snoring. Systolic murmur. worked up at [facility] 2018, per pt. no current issue and f/u with Dorothea Quintanilla. Tobacco abuse. Tubular adenoma. 08/07/14; DR. BARRIENTOS; X 3, sessile serrated. 11/24/17; DR. BARRIENTOS X1. URI (upper respiratory infection). Surgical History . Colonoscopy - IV Sedation. 2014-tubular adenoma x 3. History of surgical removal of ganglion cyst. bilat. Hx of non-cataract eye surgery. glacoma. Status post left breast biopsy. Status post ORIF of fracture of ankle. DOS: 01/04/18. Dr. Ansari PREVIOUS FUNCTIONAL STATUS/SOCIAL/FAMILY SUPPORTS:: Hien lives in [place], [place] CURRENT FUNCTIONAL STATUS:: was unable to meet with Hien today as she was out of the room most of the day for surgery. Has patient been provided with info about the portal/API?: Yes Did the patient sign up for the portal?: Yes CODE STATUS:: Full Code INSURANCE COVERAGE / FINANCIAL ISSUES:: Medicaid PRIMARY CARE PHYSICIAN:: Dorothea Quintanilla POTENTIAL DISCHARGE NEEDS:: Follow up with Orthopedics, PCP and discharge plan of care PATIENT/FAMILY EDUCATION NEEDS:: Discharge plan, limitations, Follow up plan, Ask Me Three TRANSPORTATION:: via private vehicle with family PLAN:: Hien will likely be discharged home with no new services, although she may need home health. She will follow up with her surgeon, PCP and discharge plan of care and transport with family. CM will continue to follow and support patient and her discharge neds.
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
[2020-04-27] MEDS: ACETAMINOPHEN 1,000 MG/100 ML BTL 400 MG IVPB (13:12)
--- NOTE | 2020-04-27 13:26 | DI.RAD_ITS ---
EXAM: XR WRIST LT LIMITED CLINICAL HISTORY: LEFT WRIST FRACTURE. TECHNIQUE: 2D digital imaging was performed. COMPARISON: CR,XR XR FOREARM LT from 04/26/2020 FINDINGS: Fluoroscopy was provided during reduction internal fixation of distal radius fracture with placement of a volar fixation plate. See operative report for details Total fluoroscopy time 36.4 seconds; Cumulative dose 0.70mGy IMPRESSION: DATA REPOSITORY: RADIATION DOSE DELIVERED:
[2020-04-27] MEDS: Lactated Ringers 1,000 ML 30 ML IV (14:15)
--- NOTE | 2020-04-27 17:44 | PGE_ITS ---
Date of Service Date of service: 04/27/20 Time of Service: 17:44 Assessment and Plan Assessment and plan (1) Open fracture of left distal radius and ulna: Status: Acute Assessment and plan: 60-year-old female postop day #0 status post left distal radius irrigation and debridement, ORIF, distal ulna fracture closed treatment splinting, and irrigation debridement of proximal left forearm wound with closure. Right ankle sprain versus contusion. Diet ordered. 24 hours cefazolin antibiotics ordered. Elevation left wrist. Gentle range of motion all digits. Multimodal postop analgesia. Discussed with Dr. Multani. Patient may discharge per her preference later this evening or tomorrow. He will order chest x-ray to ensure no pneumothorax after general anesthesia. Follow-up with Dr. Guzmán in [facility] in about 2 weeks. Our office will call the patient Thursday to arrange this follow-up. Postop instructions: Activity: Non-weightbearing left wrist. Recommend elevation to minimize swelling discomfort. Encourage daily range of motion to all digits to prevent stiffness and improve circulation. A physical therapy prescription will be provided separately in the office at follow-up if needed. Weightbearing as tolerated right ankle. May use home boot or brace as necessary for comfort. Dressings: Leave splint and dressing in place until follow-up. Keep clean and dry at all times. Follow-up: 10-[address] Guzmán Let us know right away if you develop any redness, drainage, fevers, chest pain, or trouble breathing. Do not drink alcohol or drive for at least 24 hours after anesthesia. Please call the office during business hours with any questions or concerns. Qualifiers: Encounter type: subsequent encounter Open fracture type: open type I or II Fracture healing: with routine healing Qualified Code(s): S52.502E - Unspecified fracture of the lower end of left radius, subsequent encounter for open fracture type I or II with routine healing; S52.602E - Unspecified fracture of lower end of left ulna, subsequent encounter for open fracture type I or II with routine healing (2) Open wound of left forearm: Status: Acute Qualifiers: Encounter type: subsequent encounter Qualified Code(s): S51.802D - Unspecified open wound of left forearm, subsequent encounter Exam Narrative Exam Narrative: Left forearm: Dressing clean dry intact. Brisk cap refill all digits. 2+ radial pulse. All compartments compressible. Right ankle: No obvious deformity, significant edema, or ecchymosis. Objective Last Vital Signs Temp 97.9 F 04/27/20 12:36 Pulse 74 04/27/20 12:36 Resp 18 04/27/20 12:36 BP 150/80 H 04/27/20 12:36 Pulse Ox 91 L 04/27/20 12:36 Laboratory Results - last 24 hr 04/26/20 04/26/20 04/26/20 19:10 19:10 19:10 WBC 8.76 RBC 4.59 Hgb 14.7 Hct 45.1 MCV 98.3 H MCH 32.0 MCHC 32.6 RDW 12.8 Plt Count 153 MPV 10.8 Immature Gran % 0.5 Neutrophils % 72.8 Lymphocytes % 19.1 Monocytes % 6.4 Eosinophils % 0.9 Basophils % 0.3 Nucleated RBC % 0 Absolute Neutrophils 6.38 Absolute Lymphocytes 1.67 Absolute Monocytes 0.56 Absolute Eosinophils 0.08 Absolute Basophils 0.03 PT 9.3 INR 0.9 APTT 22.6 Sodium 140 Potassium 4.0 Chloride 105 Carbon Dioxide 28.5 Anion Gap 6.5 BUN 23 H Creatinine 0.8 Estimated GFR/1.73 m2 >= 60.00 Glucose 114 H Calcium 10.2 H Magnesium 2.0 Total Bilirubin 0.3 AST 27 ALT 34 Alkaline Phosphatase 99 Troponin I < 0.05 Total Protein 7.6 Albumin 3.9 Lipase 99 COVID-19 Source SARS-CoV-2 (PCR) 04/26/20 21:47 WBC RBC Hgb Hct MCV MCH MCHC RDW Plt Count MPV Immature Gran % Neutrophils % Lymphocytes % Monocytes % Eosinophils % Basophils % Nucleated RBC % Absolute Neutrophils Absolute Lymphocytes Absolute Monocytes Absolute Eosinophils Absolute Basophils PT INR APTT Sodium Potassium Chloride Carbon Dioxide Anion Gap BUN Creatinine Estimated GFR/1.73 m2 Glucose Calcium Magnesium Total Bilirubin AST ALT Alkaline Phosphatase Troponin I Total Protein Albumin Lipase COVID-19 Source Nasopharyx SARS-CoV-2 (PCR) Negative
--- NOTE | 2020-04-27 17:52 | ROE_ITS ---
Date of service: 04/27/20 Time of Service: 17:00 Operative Note Operative Note DATE OF PROCEDURE: 04/27/20 PRE-OP DIAGNOSIS: 1. Open left distal radius fracture 2. Closed left distal ulna fracture 3. Open wound left proximal forearm POST-OP DIAGNOSIS: same PROCEDURE: 1. Irrigation and debridement: Skin, subcu tissue, fat, fascia, and bone at distal radius open fracture site, CPT # 92611 2. Left distal radius ORIF, intra-articular 3+ fragments, CPT #97150 3. Closed treatment left distal ulnar shaft fracture without manipulation, CPT# 04806 4. Complex wound repair with irrigation & debridement skin, subcu tissue, fat, and fascia, 2x2cm; left proximal forearm wound separate from distal fracture sites. CPT # 97179 SURGEON: Roger Guzmán MACHINE FEATHEREDGER AND REDUCER: Pooja Stewart ANESTHESIA TYPE: Local By Surgeon, General LMA/ETT and Primary Nerve Block Refer to Anesthesia Record ESTIMATED BLOOD LOSS: 30 TOURNIQUET TIME: 0 COMPLICATIONS: None Patient was transported to: PACU Patient's condition: stable Implants: Synthes 2.4 mm variable angle LCP distal radius plate with 6x distal locking screws and 3x proximal locking screws with 1x proximal cortex screw Indications: Please see complete medical record for details. Procedure Description: In the operating room, general anesthesia was induced. The patient was positioned supine on the operating room table. All bony prominences were well-padded. Preoperative antibiotics were administered. The left forearm was prepped and draped in the usual sterile fashion. The correct patient, procedure, and side of the procedure were all verified prior to incision. Plan volar modified Dalton incision site was marked and preinjected with 20 cc of 1% lidocaine containing epinephrine. The dorsal 1 cm wound was explored exposing connection deep to distal radius fracture site confirming open fracture. The wound edges are extended 0.5 cm radially and ulnarly transverse fashion. Nonviable skin was debrided as well as subcutaneous tissue and fat. Distal radial bone nonviable comminution was also removed. Copious irrigation of normal saline 3 L was then used to irrigate this dorsal open fracture site. Attention was then turned to the volar approach for the distal radius fixation. Longitudinal approach centered over the FCR tendon was used. Careful retraction of the radial artery and coagulation of vessels was used while the floor of the tendon sheath was opened sharply and the pronator quadratus was elevated from radially to ulnarly off the distal radius. The fracture site was exposed. Additional comminution was removed at the fracture site and distally about the intra-articular components of the fracture which are numerous. An additional 3 L normal saline irrigated about the fracture site volarly and dorsally. The fracture was then provisionally reduced using manual traction rotation and maintaining reduction while an appropriate length plate was selected and properly fit to the volar surface of the distal radius. Is provisionally held in place using wires and central compression screw allowing for adjustments in position. Once position was optimized, the plate was locked proximally and distally in sequential fashion. Lastly, the initial compression screw head and placed in the fracture site so it was removed. It was redrilled in the oblong hole more proximally provisionally tightened, the more proximal locking screws were loosened disengaged and this cortex screw was fully tightened improving distal radial shaft and plate compression. The locking screws were able to be reengaged and locked again. AP, lateral, and oblique radial column and ulnar column as well as radial inclination fluoroscopy confirmed appropriate reduction of the distal radius metadiaphyseal fracture site as well as the multiple sites of intra-articular extension and comminution. All screws were out of the joint and appropriate length especially distally. More centrally there were few threads there were prominent dorsally but given the extremely poor bone quality decision was made to keep these in place as they are more proximal than usual in the usual symptomatic location for tendon irritation. An additional 3 L of normal saline was then irrigated about the volar and dorsal wounds completing the irrigation and then both wounds were packed with lap sponge. Attention was then turned to the distal ulna fracture. Was scrutinized under multiple fluoroscopic views and found of adequate reduction of length and alignment. There is significant comminution about this fracture site. Decision was made to omit additional fixation given the acceptable alignment and poor bone quality as well as the trauma from the open wound and surgery already done on the extremity to minimize complication. Lastly, the proximal dorsal 1 cm wound, which was circular in appearance was explored. There is soft tissue loss centrally in the wound extended down to the ulna periosteum but not violate the bone. The wound edges were sharply debrided as well as fat and subcutaneous tissue removed with any contamination. This wound was copiously irrigated with normal saline. The circular wound was extended into an ellipse before being closed using trauma stitches 3-0 nylon interrupted fashion. The volar and dorsal distal radius was then inspected. Appropriate hemostasis was achieved. The dorsal wound edges were closed using trauma 3-0 nylon interru pted stitches. The volar wound pronator teres was reapproximated over the plate radially. The radial artery was visible pulsating with palpable pulse. Subcutaneous tissue was closed in 3-0 Monocryl in a buried and fashion. The skin was closed using 3-0 nylon in horizontal mattress fashion. Xeroform was applied over all wounds and incisions. Followed by dry 4 x 4 gauze, ABD pads, and sterile soft roll. The form was placed into a resting volar plaster splint and then gently wrapped in Roly compressive bandage to just above the elbow. The patient awoke from anesthesia without complication and was transferred to the recovery room in a stable condition.
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
--- NOTE | 2020-04-27 19:38 | NUR.NOTE ---
Nursing Note: Patient received on bed in agony of going home, utilized bedpan and voided light diogo urine. Charge informed MD for the concern, Portable peripheral vascular tech is waiting outside the door. Pt. signed for AMA form witnessed by other RN. Pt informed us that her boyfriend will be here at 2000 hrs. to pick her up. IV stopped and IID removed. Denied of severe pain. Roly wrap drsg on left arm is clean,dry and intact. Xray was just done in the room .At 1943, Pt already on wheelchair, ready to go home. Brought down by DECONTAMINATION TECHNICIAN via wheelchair, since boyfriend is waiting there.
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
== END 2020-04-27 19:45 | disposition left against medical advice (07) ==
LOC: ER 22:33 → MS 04-27 05:17
PROVIDERS: Admitting Provider Student in an Organized Health Care Education/Training Program; Emergency Provider Physician Assistant; PCP Nurse Practitioner; Visit Provider Student in an Organized Health Care Education/Training Program
PROC: (CPT 12031; 2020-04-27 14:15)
DX: S52.572B Other intraarticular fracture of lower end of left radius, initial encounter for open fracture type I or II (principal); S52.692B Other fracture of lower end of left ulna, initial encounter for open fracture type I or II; S22.41XA Multiple fractures of ribs, right side, initial encounter for closed fracture; S22.32XA Fracture of one rib, left side, initial encounter for closed fracture; V43.52XA Car driver injured in collision with other type car in traffic accident, initial encounter; Y92.410 Unspecified street and highway as the place of occurrence of the external cause; E78.00 Pure hypercholesterolemia, unspecified; G47.00 Insomnia, unspecified; G25.81 Restless legs syndrome; E78.5 Hyperlipidemia, unspecified; F17.210 Nicotine dependence, cigarettes, uncomplicated; G47.33 Obstructive sleep apnea (adult) (pediatric); J45.909 Unspecified asthma, uncomplicated
CPT/HCPCS: 12031; 25609; 25530; 11012; 29125; 36415; 74177; 76942; 80053; 83690; 87635; 93005; 96361; 96365; 96375; 96376; 99222; 99255; 99285; NC; 71045; 71260; 73090; 73100; 73110; 73610; 83735; 84484; 85025; 85610; 85730; 93010; G0378; J0131; J0690; J1100; J1885; J2001; J2270; J2405; J2704; J3490

== ENCOUNTER 2020-05-09 14:31 | Outpatient (CLI) | payer MEDICAID, SELFPAY ==
--- NOTE | 2020-05-09 13:40 | DI.RAD_ITS ---
EXAM: XR WRIST LT COMPLETE CLINICAL HISTORY: surgery f/u. TECHNIQUE: 2D digital imaging was performed. COMPARISON: CR,XR XR WRIST LT COMPLETE from 04/26/2020 CR,XR XR FOREARM LT from 04/26/2020 FINDINGS: There has been interval ORIF of the fracture of distal radius with placement of volar fusion plate ac ross a distal radial fracture site secured by multiple screws. Satisfactory alignment. Comminuted f racture of the adjacent ulna is again noted as is the fracture of the base of the ulnar styloid proce ss. IMPRESSION: DATA REPOSITORY: RADIATION DOSE DELIVERED:
== END 2020-05-09 14:32 | disposition home or self-care (01) ==
LOC: DIORS 14:31
PROVIDERS: PCP Nurse Practitioner; Referring Provider Nurse Practitioner; Visit Provider Physician Assistant
DX: S52.572E Other intraarticular fracture of lower end of left radius, subsequent encounter for open fracture type I or II with routine healing (principal); S52.692 Other fracture of lower end of left ulna
CPT/HCPCS: 73110

== ENCOUNTER 2020-05-23 08:53 | Outpatient (CLI) | payer MEDICAID, SELFPAY ==
--- NOTE | 2020-05-23 08:29 | DI.RAD_ITS ---
EXAM: XR ANKLE RT COMPLETE CLINICAL HISTORY: new injury. TECHNIQUE: 2D digital imaging was performed. COMPARISON: CR,XR XR ANKLE RT COMPLETE from 04/26/2020 FINDINGS: Again noted is lateral fixation plate across a healed fibular fracture site. However, on the present study there appears to be a nondisplaced fracture on the lateral aspect of the talus subjacent to th e lateral malleolus. Talar dome is intact. IMPRESSION: There is a fracture of the lateral aspect of the talus evident. DATA REPOSITORY: RADIATION DOSE DELIVERED:
== END 2020-05-23 08:54 | disposition home or self-care (01) ==
LOC: DIORS 08:54
PROVIDERS: PCP Nurse Practitioner; Referring Provider Nurse Practitioner; Visit Provider Physician Assistant
DX: S93.401A Sprain of unspecified ligament of right ankle, initial encounter (principal); S92.144A Nondisplaced dome fracture of right talus, initial encounter for closed fracture; Z87.81 Personal history of (healed) traumatic fracture
CPT/HCPCS: 73610

== ENCOUNTER 2020-06-06 13:24 | Outpatient (CLI) | payer MEDICAID, SELFPAY ==
--- NOTE | 2020-06-06 13:38 | DI.RAD_ITS ---
EXAM: XR WRIST LT LIMITED CLINICAL HISTORY: f/u. TECHNIQUE: 2D digital imaging was performed. COMPARISON: CR XR WRIST LT COMPLETE from 05/09/2020 FINDINGS: The cast material is been removed. Volar fusion plate across the distal radial fracture site is again noted. No loosening evident. Sta ble alignment at this fracture site. There has been some callus formation at the comminuted adjacent fracture in distal ulna. Ulnar styloid fracture is again noted. IMPRESSION: DATA REPOSITORY: RADIATION DOSE DELIVERED:
== END 2020-06-06 13:25 | disposition home or self-care (01) ==
LOC: DIORS 13:24
PROVIDERS: PCP Nurse Practitioner; Referring Provider Nurse Practitioner; Visit Provider Student in an Organized Health Care Education/Training Program
DX: S52.592E Other fractures of lower end of left radius, subsequent encounter for open fracture type I or II with routine healing (principal); S52.692 Other fracture of lower end of left ulna
CPT/HCPCS: 73100

== ENCOUNTER 2020-07-04 11:53 | Outpatient (CLI) | payer MEDICAID, SELFPAY ==
--- NOTE | 2020-07-04 12:00 | DI.RAD_ITS ---
Exam(s) XR WRIST LT LIMITED EXAM: XR WRIST LT LIMITED CLINICAL HISTORY: f/u. TECHNIQUE: 2D digital imaging was performed. COMPARISON: CR XR WRIST LT LIMITED from 06/06/2020 FINDINGS: Again noted is the volar fusion plate across the distal radial fracture site and appearance is stable . No hardware loosening. No radiographic evidence of osteomyelitis. Adjacent healing fracture site in the ulna also appears unchanged. Fractured ulna styloid process again noted. No hardware loosen ing. IMPRESSION: No significant radiographic change compared to 06/06/2020. DATA REPOSITORY: RADIATION DOSE DELIVERED:
== END 2020-07-04 11:54 | disposition home or self-care (01) ==
LOC: DIORS 11:53
PROVIDERS: PCP Nurse Practitioner; Referring Provider Nurse Practitioner; Visit Provider Student in an Organized Health Care Education/Training Program
DX: S52.591D Other fractures of lower end of right radius, subsequent encounter for closed fracture with routine healing (principal); S52.692D Other fracture of lower end of left ulna, subsequent encounter for closed fracture with routine healing
CPT/HCPCS: 73100

== ENCOUNTER 2020-07-08 09:44 | Emergency (ER) | payer MEDICAID, SELFPAY ==
[2020-07-08 09:50] VITALS: BP 164/85; PULSE 75; RESP 14; TEMP 36.8; O2SAT 98
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
== END 2020-07-08 10:49 | disposition home or self-care (01) ==
PROVIDERS: Emergency Provider Physician Assistant; PCP Nurse Practitioner
DX: S92.191D Other fracture of right talus, subsequent encounter for fracture with routine healing (principal); S52.591D Other fractures of lower end of right radius, subsequent encounter for closed fracture with routine healing; S52.692D Other fracture of lower end of left ulna, subsequent encounter for closed fracture with routine healing; V49.9XXD Car occupant (driver) (passenger) injured in unspecified traffic accident, subsequent encounter; G89.21 Chronic pain due to trauma
CPT/HCPCS: 99282; 99283

== ENCOUNTER 2020-07-11 02:29 | Outpatient (CLI) | payer MEDICAID, SELFPAY ==
--- NOTE | 2020-07-11 15:00 | DI.MAMMO_ITS ---
Exam(s) MG MAMMO DIAGNOSTIC UNI EXAM: MG MAMMO DIAGNOSTIC UNI CLINICAL HISTORY: DIAGNOSTIC, F/U ABNL MAMMO, 6 MONTH FOLLOW UP, R92.8. TECHNIQUE: Craniocaudal and mediolateral oblique Full Field Digital Mammography views of the right b reast with Computer Aided Diagnosis followed by Tomosynthesis. COMPARISON: Priors available for comparison. FINDINGS: Mammography/Tomosynthesis: Masses/Architectural Distortion: Stable asymmetric breast tissue in the upper-outer quadrant of the r ight breast. No mass is seen. Microcalcifictions: No suspicious pleomorphic-type are seen. Skin Thickening/Nipple Retraction: None. IMPRESSION: 1. No evidence of malignancy is noted. Stable asymmetric breast tissue in the upper-outer quadrant of the right breast. 2. A six-month follow-up right mammogram is recommended for re-evaluation. 3. The findings were discussed with the patient on the date of the examination. BI-RADS Category 3 - 6 month - Probably Benign Finding: Recommend follow-up imaging in 6 months Breast Density - Category B - Scattered areas of fibroglandular density Breast density Category C or D implies that the patient has dense breast tissue. Dense breast tissue can make it harder to find cancer on a mammogram. Dense breast tissue is also associated with an incr eased risk of breast cancer. This information about the result of the mammogram report was provided to the patient to raise their awareness. Use this report when you speak with the patient about their risks for breast cancer, which includes their family history. At that time, you may recommend additional screening tests (Ultrasoun d or MRI) as these tests may add significant information. A negative radiographic report should not delay biopsy if a dominant or clinically suspicious mass is present. Up to ten percent of cancers are not identified on mammography. A negative report may reinforce clinical impression. Adenosis and dense breasts may obscure an underlying neoplasm. False positive reports average 6 to 10%. Patient will receive a letter notifying them of these results.
== END 2020-07-11 02:49 ==
PROVIDERS: PCP Nurse Practitioner; Visit Provider Nurse Practitioner Family
DX: Z12.31 Encounter for screening mammogram for malignant neoplasm of breast (principal); R92.8 Other abnormal and inconclusive findings on diagnostic imaging of breast; N60.81 Other benign mammary dysplasias of right breast
CPT/HCPCS: 77061; 77065; G0279

== ENCOUNTER 2020-07-27 01:54 | Outpatient (CLI) | payer MEDICAID, SELFPAY ==
--- NOTE | 2020-07-27 13:00 | DI.CT_ITS ---
Exam(s) CT LOWER EXTREMITY RT WO EXAM: CT LOWER EXTREMITY RT WO CLINICAL HISTORY: FX RT TALUS,S92.191A,EVALUATE TARUS HEALING,. TECHNIQUE: Imaging Protocol: Axial computed tomography images with coronal and sagittal reformatted images were created and reviewed. COMPARISON: CR,XR XR ANKLE RT COMPLETE from 04/26/2020 CR XR ANKLE RT COMPLETE from 05/23/[address] LOWER EXTREMITY RT WO from 05/24/2020 FINDINGS: Bones: There has been significant healing of the comminuted fracture involving the lateral aspect of the talus. There are some components of the fracture that are still visualized. No new talar fract ure is identified. The small fracture fragment posterior to the sustentacular talus is again seen. Minimal healing of the fracture is noted. There is again seen artifact from the sideplate and screws transfixing the old fibular fracture. The bones appear osteopenic. Bony alignment is satisfactory. No cellulitic or osteomyelitic changes are identified. There are degenerative changes seen at the ankle. No lytic or sclerotic lesions are identified. Soft Tissues: Normal. IMPRESSION: 1. Significant healing of the comminuted talar fracture. No new fracture is identified. 2. Interval healing of the avulsion fracture posterior to the sustentacular talus. RADIATION DOSE DELIVERED: 467.93mGy.cm Total DLP 467.93mGy.cm Total DLP DATA REPOSITORY: All CT scans at this facility are submitted to the National Radiology Data Registry (NRDR) Dose Index Registry (DIR) with the [employer] (A[employer]). RADIATION OPTIMIZATION: All CT scans at this facility use at least one of these dose optimization te chniques: automated exposure control; mA and/or kV adjustment per patient size (includes targeted exa ms where dose is matched to clinical indication); or iterative reconstruction.
== END 2020-07-27 02:14 ==
PROVIDERS: PCP Nurse Practitioner; Visit Provider Orthopaedic Surgery
DX: S92.191D Other fracture of right talus, subsequent encounter for fracture with routine healing (principal); S92.151D Displaced avulsion fracture (chip fracture) of right talus, subsequent encounter for fracture with routine healing; X58.XXXD Exposure to other specified factors, subsequent encounter
CPT/HCPCS: 73700

== ENCOUNTER 2020-08-29 10:43 | Outpatient (CLI) | payer MEDICAID, SELFPAY ==
--- NOTE | 2020-08-29 10:30 | DI.RAD_ITS ---
Exam(s) XR WRIST LT LIMITED EXAM: XR WRIST LT LIMITED CLINICAL HISTORY: RADIUS ULNA FRACTURE F/U. TECHNIQUE: 2D digital imaging was performed. COMPARISON: Prior x-rays 07/04/2020 FINDINGS: Again noted is the volar fusion plate across healing fracture site in the distal radius. Stable alig nment. There has also been further healing at the adjacent distal ulnar fracture site. Fractured ul garry styloid is again noted. There is no radiographic evidence of hardware loosening nor osteomyeliti s. IMPRESSION: DATA REPOSITORY: RADIATION DOSE DELIVERED:
== END 2020-08-29 10:44 | disposition home or self-care (01) ==
LOC: DIORS 10:44
PROVIDERS: PCP Nurse Practitioner; Referring Provider Nurse Practitioner; Visit Provider Student in an Organized Health Care Education/Training Program
DX: S52.502E Unspecified fracture of the lower end of left radius, subsequent encounter for open fracture type I or II with routine healing (principal); S52.612E Displaced fracture of left ulna styloid process, subsequent encounter for open fracture type I or II with routine healing; X58.XXXD Exposure to other specified factors, subsequent encounter
CPT/HCPCS: 73100

== ENCOUNTER 2020-10-31 10:35 | Outpatient (CLI) | payer MEDICAID, SELFPAY ==
--- NOTE | 2020-10-31 10:00 | DI.RAD_ITS ---
Exam(s) XR WRIST LT LIMITED EXAM: XR WRIST LT LIMITED CLINICAL HISTORY: RADIUS, ULNA FX F/U. TECHNIQUE: 2D digital imaging was performed. COMPARISON: CR XR WRIST LT LIMITED from 08/29/2020 FINDINGS: Again noted is a volar fixation plate transfixing the distal radius fracture and there has been some further healing at the distal radius fracture site. Also healing at the adjacent distal ulnar fractu re site. Fractured ulnar styloid is again noted. No radiographic evidence of hardware loosening nor radiograp hic evidence of osteomyelitis. On the present study the scapholunate distance appears slightly widened. This may imply interosseous ligament injury. IMPRESSION: DATA REPOSITORY: RADIATION DOSE DELIVERED:
== END 2020-10-31 10:36 | disposition home or self-care (01) ==
LOC: DIORS 10:35
PROVIDERS: PCP Nurse Practitioner; Referring Provider Nurse Practitioner; Visit Provider Student in an Organized Health Care Education/Training Program
DX: S52.502E Unspecified fracture of the lower end of left radius, subsequent encounter for open fracture type I or II with routine healing (principal); S52.602E Unspecified fracture of lower end of left ulna, subsequent encounter for open fracture type I or II with routine healing; X58.XXXD Exposure to other specified factors, subsequent encounter
CPT/HCPCS: 73100

== ENCOUNTER 2020-11-01 01:45 | Outpatient (CLI) | payer MEDICAID, SELFPAY ==
[2020-11-01 11:22] LABS: ALT 22 U/L (14-59); AST 16 U/L (15-37); Albumin 3.9 g/dL (3.4-5.0); Alkaline Phosphatase 86 U/L (46-116); Anion Gap 8.6 mmol/L (3-11); BUN 18 mg/dL (7-18); Bilirubin, Total 0.4 mg/dL (0.2-1.0); CO2 27.4 mmol/L (21.0-32.0); CREATININE 0.7 mg/dL (0.55-1.02); Calcium 9.7 mg/dL (8.5-10.1); Calculated LDL 191 mg/dL (<100); Chloride 107 mmol/L (98-107); Cholesterol 262 mg/dL (<200); Glucose 90 mg/dL (74-106); HDL Cholesterol 58 mg/dL (40-60); Potassium 4.7 mmol/L (3.5-5.1); Sodium 143 mmol/L (136-145); Total Protein 6.9 g/dL (6.4-8.2); Triglyceride 65 mg/dL (<150)
[2020-11-01 13:11] LABS: Hemoglobin A1C 5.5 % (<5.7)
== END 2020-11-01 01:46 | disposition home or self-care (01) ==
LOC: LBO 01:45
PROVIDERS: PCP Nurse Practitioner; Visit Provider Nurse Practitioner
DX: E78.00 Pure hypercholesterolemia, unspecified (principal); R73.01 Impaired fasting glucose
CPT/HCPCS: 36415; 80053; 80061; 83036

== ENCOUNTER 2020-11-21 14:16 | Emergency (ER) | payer MEDICAID, SELFPAY ==
[2020-11-21 14:26] VITALS: BP 186/92; PULSE 77; RESP 16; TEMP 37; O2SAT 98
--- NOTE | 2020-11-21 14:45 | DI.US_ITS ---
Exam(s) US LOWER EXTREMITY VENOUS RT EXAM: US LOWER EXTREMITY VENOUS RT CLINICAL HISTORY: R leg swelling and redness, r/o dvt TECHNIQUE: Grayscale, color, and doppler imaging of the deep venous system of the right lower extrem ity was performed. COMPARISON: US US OR ANESTHESIA from 04/27/2020 FINDINGS: There is no evidence of intraluminal thrombus and there is normal compression and augmentation demons trated within the common femoral vein, femoral vein, and popliteal vein. In the ipsilateral calf the interrogated veins also exhibit normal compression/ augmentation properti es. The ipsilateral saphenofemoral junction is patent. IMPRESSION: 1. No evidence of DVT in the right lower extremity. 2. DATA REPOSITORY:
--- NOTE | 2020-11-21 15:17 | ED.GENADUL_ITS ---
Discharge Plan Disposition Patient Disposition: HOME Condition: Stable Discharge Details Clinical Impression: Right leg swelling, Petechial rash, Acute UTI Primary Care Provider: Dorothea Quintanilla ED Provider: Rick Aburto Home Meds and New Rx's Prescriptions: New prednisone 20 mg tablet See Rx Instructions .ROUTE .COMPLEX Qty: 18 RF: 0 clindamycin HCl 150 mg capsule 450 mg PO TID 7 Days Qty: 63 RF: 0 nitrofurantoin monohyd/m-cryst [Macrobid] 100 mg capsule 100 mg PO Q12H 5 Days Qty: 10 RF: 0 Continued aspirin [Adult Low Dose Aspirin] 81 mg tablet,delayed release (DR/EC) 81 mg PO DAILY RF: 0 trazodone 50 mg tablet 50 mg PO QHS PRN (Reason: sleep) Qty: 30 RF: 3 tramadol 50 mg tablet 50 mg PO BID PRN (Reason: pain) Qty: 56 RF: 0 acetaminophen 650 mg tablet extended release 650 mg PO Q8H RF: 0 furosemide 20 mg tablet 20 mg PO DAILY PRN (Reason: edema) Qty: 30 RF: 3 multivitamin [Daily Multi-Vitamin] 1 EACH tablet 1 ea PO daily prn RF: 0 citalopram 20 mg tablet 20 mg PO DAILY Qty: 90 RF: 3 albuterol sulfate [ProAir HFA] 90 mcg/actuation HFA aerosol inhaler 1 - 2 puff Inhalation QID PRN (Reason: bronchospasm) Qty: 1 RF: 6 fluticasone propionate 50 mcg/actuation spray,suspension 2 spray intranasal DAILY Qty: 16 RF: 12 nicotine 21 mg/24 hr patch 24 hour 1 patch transdermal DAILY Qty: 28 RF: 0 nicotine 14 mg/24 hr patch 24 hour 1 patch transdermal DAILY Qty: 28 RF: 0 nicotine 7 mg/24 hr patch 24 hour 1 patch transdermal Q24H Qty: 28 RF: 0 carbidopa-levodopa [Sinemet] 10-100 mg tablet 1 tab PO HS PRN (Reason: RLS) Qty: 30 RF: 3 cholecalciferol (vitamin D3) 25 mcg (1,000 unit) capsule 1,000 unit PO DAILY Qty: 90 RF: 3 rosuvastatin 20 mg tablet 20 mg PO DAILY Qty: 90 RF: 3 Discharge Instructions Instructions: Leg Edema (ED) Additional Instructions: Drink plenty of fluids and get plenty of rest. A prescription for steroids has been sent electronically to your pharmacy. Take this as directed until finished. You are also being started on antibiotics Follow-up with your primary care doctor in 1 week. Return to the emergency department with any worsening or new concerning symptoms. Discharge Data Discharge Date/Time-TO BE ENTERED AT DEPARTURE: 11/21/20 18:16 Discharge Physician: Trinh Cross Medical Decision Making <Trinh Cross DO - Last Filed: 11/22/20 12:27> 60-year-old female with a history of complex regional pain syndrome of the right lower limb with a history of chronic right ankle pain secondary to trimalleolar fracture and a history of right talus fracture presents with right leg swelling and redness today. There is nonpitting mild to moderate edema of the right lower extremity. She also has patchy erythema proximal and distal and nonblanching petechial-like lesions of the right proximal medial leg. No calf tenderness. Rash and lesions are nontender. Neurovascularly grossly intact. She is also complaining of possible UTI. Will obtain a urinalysis, screening labs including CBC, ESR, CRP and refer for right leg ultrasound. As she has no complaint of pain, do not suspect infection. Ultrasound negative for DVT. Urinalysis notes 10-20 WBCs with greater than 50 RBCs with negative leukocyte esterase and negative nitrites. Suspect contamination. We will resend another urine sample. Case endorsed to Dr. Aburto to follow-up on labs. If labs unremarkable, will treat with a short course of steroids for possible vasculitis. If labs concerning for infection, will also add antibiotics. Medical Records Medical records reviewed: Yes I reviewed the patient's medical records. <Rick Aburto MD - Last Filed: 11/21/20 18:08> patient remains stable requesting d/c. no emergent findings, does have increased inflammatory markers and ua consistent with uti. Given her rash on her leg will cover for possible cellulitis with clindamycin and macrobid for uti, no findings to suggest pyelo, no cva tenderness and afebrile. Will have her f/u with pcp, return precautions given HPI <Trinh Cross DO - Last Filed: 11/22/20 12:27> General Mode of arrival: ambulatory . Date/Time Provider Initiated Documentation: 11/21/20 14:29 . Limitations to Documentation: no limitations . Information obtained by: patient . HPI Narrative: Patient is a 60-year-old female with a history of complex regional pain syndrome of right lower limb, chronic pain of right ankle secondary to trimalleolar fracture in 2018 as well as a history of right talus fracture presents with swelling, redness and rash noted to her right leg today. She denies any new pain or tenderness of her right leg, fever, new injury or itching. She states she called her PCP but they were unavailable and she came to the ER. Related Data Home Medications Medication Instructions Recorded Confirmed multivitamin [Daily Multi-Vitamin] 1 ea PO daily prn 10/07/12 11/21/20 aspirin 81 mg tablet,delayed 81 mg PO DAILY 03/04/19 11/21/20 release citalopram 20 mg tablet 20 mg PO DAILY #90 tab 01/09/20 11/21/20 albuterol sulfate 90 mcg/actuation 1 - 2 puff INHALATION QID PRN #1 02/23/20 11/21/20 aerosol inhaler inhaler fluticasone propionate 50 2 spray INTRANASAL DAILY #16 g 03/12/20 11/21/20 mcg/actuation nasal spray,suspension trazodone 50 mg tablet 50 mg PO QHS PRN #30 tab 04/23/20 11/21/20 nicotine 14 mg/24 hr daily 1 patch TRANSDERMAL DAILY #28 ea 05/14/20 11/21/20 transdermal patch nicotine 21 mg/24 hr daily 1 patch TRANSDERMAL DAILY #28 ea 05/14/20 11/21/20 transdermal patch nicotine 7 mg/24 hr daily 1 patch TRANSDERMAL Q24H #28 ea 05/14/20 11/21/20 transdermal patch acetaminophen 650 mg 650 mg PO Q8H 07/10/20 11/21/20 tablet,extended release furosemide 20 mg tablet 20 mg PO DAILY PRN #30 tab-cap 07/10/20 11/21/20 carbidopa 10 mg-levodopa 100 mg 1 tab PO HS PRN #30 tab-cap 07/27/20 11/21/20 tablet cholecalciferol (vitamin D3) 25 1,000 unit PO DAILY #90 cap 07/30/20 11/21/20 mcg (1,000 unit) capsule tramadol 50 mg tablet 50 mg PO BID PRN #56 tab 10/29/20 11/21/20 rosuvastatin 20 mg tablet 20 mg PO DAILY #90 tab 11/05/20 11/21/20 clindamycin HCl 450 mg PO TID 7 Days #63 cap 11/21/20 nitrofurantoin monohyd/m-cryst 100 mg PO Q12H 5 Days #10 cap 11/21/20 [Macrobid] prednisone See Rx Instructions .ROUTE 11/21/20 .COMPLEX #18 tab Previous Rx's Medication Instructions Recorded citalopram 20 mg tablet 20 mg PO DAILY #90 tab 01/09/20 albuterol sulfate 90 mcg/actuation 1 - 2 puff INHALATION QID PRN #1 02/23/20 aerosol inhaler inhaler fluticasone propionate 50 2 spray INTRANASAL DAILY #16 g 03/12/20 mcg/actuation nasal spray,suspension trazodone 50 mg tablet 50 mg PO QHS PRN #30 tab 04/23/20 nicotine 14 mg/24 hr daily 1 patch TRANSDERMAL DAILY #28 ea 05/14/20 transdermal patch nicotine 21 mg/24 hr daily 1 patch TRANSDERMAL DAILY #28 ea 05/14/20 transdermal patch nicotine 7 mg/24 hr daily 1 patch TRANSDERMAL Q24H #28 ea 05/14/20 transdermal patch furosemide 20 mg tablet 20 mg PO DAILY PRN #30 tab-cap 07/10/20 carbidopa 10 mg-levodopa 100 mg 1 tab PO HS PRN #30 tab-cap 07/27/20 tablet cholecalciferol (vitamin D3) 25 1,000 unit PO DAILY #90 cap 07/30/20 mcg (1,000 unit) capsule tramadol 50 mg tablet 50 mg PO BID PRN #56 tab 10/29/20 rosuvastatin 20 mg tablet 20 mg PO DAILY #90 tab 11/05/20 clindamycin HCl 450 mg PO TID 7 Days #63 cap 11/21/20 nitrofurantoin monohyd/m-cryst 100 mg PO Q12H 5 Days #10 cap 11/21/20 [Macrobid] prednisone See Rx Instructions .ROUTE 11/21/20 .COMPLEX #18 tab Allergies Allergy/AdvReac Type Severity Reaction Status Date / Time latex Allergy Intermediate rash Verified 11/21/20 14:37 Penicillins AdvReac Intermediate sick to Verified 11/21/20 14:37 my stomach Carbapenems AdvReac Unknown Nausea Verified 11/21/20 14:37 NSAIDS (Non-Steroidal AdvReac Unknown Nausea Verified 11/21/20 14:37 Anti-Inflamma Sulfa (Sulfonamide AdvReac Unknown Nausea Verified 11/21/20 14:37 Antibiotics) adhesive tape AdvReac skin Verified 11/21/20 14:37 blisters General Stated Complaint: Orthopedic MARCELINA: 3 Review of Systems <Trinh Cross DO - Last Filed: 11/22/20 12:27> All systems reviewed & are unremarkable except as noted in HPI and below Constitutional Constitutional: Reports as per HPI, Denies chills and Denies fever(s) Eyes Eyes: Denies blurry vision ENT Ears, Nose, Mouth, and Throat: Denies dizziness, Denies sore throat and Denies throat swelling Cardiovascular Cardiovascular: Denies chest pain and Denies dyspnea Respiratory Respiratory: Denies cough and Denies dyspnea Gastrointestinal Gastrointestinal: Denies abdominal pain, Denies diarrhea and Denies vomiting Genitourinary Genitourinary: Denies hematuria and Denies dysuria Musculoskeletal Musculoskeletal: Denies back pain and Denies numbness Integumentary/Breasts Skin/Breast: Reports lesions and Denies rash Neurologic Neurologic: Denies dizziness, Denies localized weakness and Denies numbness Allergic/Immunologic Allergic/Immunologic: Denies throat swelling PFSH <Trinh Cross DO - Last Filed: 11/22/20 12:27> Medical History (Updated 11/21/20 @ 18:06 by Rick Aburto MD) BMI 40.0-44.9, adult Chronic pain of right ankle Chronic UTI (urinary tract infection) Closed bimalleolar fracture of right ankle X-rays had shown question of trimalleolar fracture, however there was no fragment of posterior malleolus noted intraoperatively Closed right trimalleolar fracture Colorectal polyp detected on colonoscopy 11/24/17-SESSILE SERRATED ADENOMA Complex regional pain syndrome i of right lower limb Daytime somnolence Diverticulosis Elevated cholesterol Fracture of distal radius and ulna (04/26/20) Fracture of right talus (~04/2020) Hx of fracture of ankle Hyperlipidemia Insomnia Left breast mass Lung cancer screening declined by patient Open wound of left forearm Restless leg RLS (restless legs syndrome) Snoring Sprain of right ankle Systolic murmur worked up at [facility] 2018, per pt. no current issue and f/u with Dorothea Quintanilla Tobacco abuse Tubular adenoma 08/07/14; DR. BARRIENTOS; X 3, sessile serrated 11/24/17; DR. BARRIENTOS X1 URI (upper respiratory infection) Surgical History Colonoscopy - IV Sedation 2015-tubular adenoma x 3 History of surgical removal of ganglion cyst bilat Hx of non-cataract eye surgery glacoma Open fracture of left distal radius and ulna (04/26/20) S/P ORIF: 04/27/2020 Status post left breast biopsy Status post ORIF of fracture of ankle DOS: 01/04/18 Dr. Ansari Family History Mother Vocal cord cancer Hyperlipidemia Hypertension Stroke family Diabetes Heart disease Hyperlipidemia Neoplasm BREAST/LUNG Father , 76 Prostate cancer Heart disease Hyperlipidemia Hypertension Sister Essential hypertension Brother Essential hypertension Depression Heart disease Hyperlipidemia Brother , 40 Essential hypertension Hyperlipidemia Depression Heart disease Social History Smoking/Tobacco Use Status: Current every day Tobacco Type: cigarettes Tobacco: How many years used: 40 Quit status: considering quitting Second Hand Exposure: Yes Smoking risk assessment performed?: Yes Alcohol Intake: current Alcohol Intake frequency: holidays/special occasions only Alcohol type: beer Drug use: Never Substance use type: does not use Caregiver/Support person: No Household members: none Housing: apartment Do you need help understanding health information?: Rarely 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 Pets and animals: No Sexually active: Yes Do you think of yourself as: straight/heterosexual Current gender identity: female What is your relationship status?: How often do you talk on the phone with friends or family?: three or more times per week How often do you get together with friends or relatives?: once per week How often do you attend confucianism or rastafari services?: 1-3 times per year Do you belong to any clubs or organized social groups?: no Panel score (0-1 are the most socially isolated patients): 1 What type of physical activity do you participate in: none Marcie/Scientologist: [employer] Special marcie needs: No Do you feel safe at home: Yes Do you feel safe in your relationship?: Yes Exam <Trinh Cross DO - Last Filed: 11/22/20 12:27> Const General: cooperative, healthy appearing and no acute distress HENMT Head: normal to inspection Mouth: oral mucosae normal Eyes General: appearance normal, both eyes and all related structures Neck Neck: normal visual inspection Resp Effort & Inspection: normal respiratory effort and able to speak in complete sentences Cardio Rate: regular rate Skin General skin exam: no rashes or lesions noted Neuro General: patient alert, patient awake and patient oriented x3 Motor: muscle tone normal throughout Extrem Ankle/foot/toe images: 1. Nontender erythema and edema 2. Nonblanching, petechial 3. 1 x 1 cm healing erosion 4. Nontender erythema and edema Other: Right DP/PT pulses intact Psych Appearance: grossly normal Affect: normal affect Course <Trinh Crsos DO - Last Filed: 11/22/20 12:27> Vital Signs Vital signs: Vital Signs Temperature 98.6 F 11/21/20 14:26 Pulse 77 11/21/20 14:26 Respiratory Rate 16 11/21/20 14:26 Blood Pressure 186/92 H 11/21/20 14:26 Pulse Oximetry 98 11/21/20 14:26 Temperature 98.6 F 11/21/20 14:26 Temperature Source Temporal Artery Scan 11/21/20 14:26 Pulse 77 11/21/20 14:26 Respiratory Rate 16 11/21/20 14:26 Respiratory Effort Non-Labored 11/21/20 14:32 Blood Pressure 186/92 H 11/21/20 14:26 Blood Pressure Position Sitting 11/21/20 14:26 Pulse Oximetry 98 11/21/20 14:26 Oxygen Delivery Method Room Air 11/21/20 14:26 Oxygen Flow Rate 0 11/21/20 14:26 Pain Level 0 11/21/20 14:34 Sign Out <Trinh Cross DO - Last Filed: 11/22/20 12:27> Sign Out Data: Sign Out Comment: Right leg swelling and petechial-like lesions and erythema. Suspect possibly vasculitis. Follow-up on labs. Last updated by Trinh Cross DO at 11/21/20 16:35
[2020-11-21 15:21] LABS: Bilirubin Small (Negative); Blood Large (Negative); Clarity Clear (Clear); Glucose Negative (Negative); Ketones Trace mg/dL (Negative); Leukocyte Esterase Negative (Negative); Nitrite Negative (Negative); Specific Gravity >= 1.030 (1.005-1.025); pH 5.5 (5-8)
[2020-11-21 16:01] LABS: Bacteria Moderate HPF (Negative); Casts Negative LPF (Negative); Crystals Many Calcium Oxalate HPF (Negative); Epithelial Cells Many HPF (Negative); Mucus Negative (Negative); Other Cells Negative (Negative); RBC >50 HPF (0-2)
[2020-11-21 16:02] LABS: C & S Indicated? No/Sq. Contamination
[2020-11-21 16:40] LABS: Abs Immature Grans 0.01 10^3/uL (0.0-0.06); Absolute Basophil Count 0.02 10^3/uL (0.0-0.2); Absolute Eosinophil Count 0.03 10^3/uL (0.0-0.7); Absolute Lymphocyte Count 1.51 10^3/uL (1.2-3.4); Absolute Monocyte Count 0.68 10^3/uL (0.1-0.8); Absolute Neutrophil Count 6.54 10^3/uL (1.2-6.7); Basophils % 0.2; Eosinophils % 0.3; HCT 41.2 % (36.0-46.0); HGB 13.4 g/dL (11.2-15.7); Immature Grans % 0.1; Lymphocytes % 17.2; MCH 31.6 pg (27.0-33.0); MCHC 32.5 % (32.0-36.0); MCV 97.2 fL (80-95); MPV 11.2 fL (8.0-11.0); Monocytes % 7.7; Neutrophils % 74.5; Nucleated RBC 0 %; RBC 4.24 10^6/uL (3.93-5.22); RDW-SD 46.6 fL; WBC 8.79 10^3/uL (4.4-10.8)
[2020-11-21 16:45] LABS: ALT 20 U/L (14-59); AST 16 U/L (15-37); Albumin 3.8 g/dL (3.4-5.0); Alkaline Phosphatase 78 U/L (46-116); Anion Gap 9.1 mmol/L (3-11); BUN 15 mg/dL (7-18); Bilirubin, Total 0.4 mg/dL (0.2-1.0); C-Reactive Protein 19.52 mg/dL (0.0-0.3); CO2 25.9 mmol/L (21.0-32.0); CREATININE 0.7 mg/dL (0.55-1.02); Calcium 10.2 mg/dL (8.5-10.1); Chloride 105 mmol/L (98-107); Glucose 113 mg/dL (74-106); Potassium 3.9 mmol/L (3.5-5.1); Sodium 140 mmol/L (136-145); Total Protein 7.7 g/dL (6.4-8.2)
[2020-11-21 16:47] LABS: PTT Activated 27.8 sec (21.0-27.5); Prothrombin Time 10.3 sec (9.3-11.0)
[2020-11-21 16:50] LABS: ESR 20 mm/hr (0-30)
[2020-11-21 17:33] LABS: Bilirubin Small (Negative); Blood Large (Negative); Clarity Clear (Clear); Glucose Negative (Negative); Ketones 15 mg/dL (Negative); Leukocyte Esterase Negative (Negative); Nitrite Negative (Negative); Specific Gravity >= 1.030 (1.005-1.025); pH 5.5 (5-8)
[2020-11-21 17:34] LABS: Platelet Count 137 10^3/uL (130-400)
[2020-11-21 17:51] LABS: Bacteria Rare HPF (Negative); C & S Indicated? Yes; Casts Negative LPF (Negative); Crystals Mod Calcium Oxalate HPF (Negative); Epithelial Cells Negative HPF (Negative); Mucus Negative (Negative); RBC 20-50 HPF (0-2)
[2020-11-21] MEDS: Clindamycin 150 MG CAP 450 MG PO (18:16)
[2020-11-21] MEDS: MacroBID 100 MG CAP PO (18:21)
[2020-11-21 18:23] VITALS: BP 154/85; PULSE 72; RESP 17; O2SAT 99
--- NOTE | 2020-11-25 08:31 | W.ED.FU ---
Patient on Macrobid, of intermediate sensitivity to Enterobacter, she is feeling very much symptomatically improved and I do not see need to change antibiotics at this time She has follow-up with her pcp this week and will return earlier should she have new or worsening complaints
== END 2020-11-21 18:16 | disposition home or self-care (01) ==
PROVIDERS: Physician Assistant; Emergency Provider Emergency Medicine; PCP Nurse Practitioner
DX: R60.0 Localized edema (principal); N39.0 Urinary tract infection, site not specified; R23.3 Spontaneous ecchymoses; Z87.440 Personal history of urinary (tract) infections; Z20.822 Contact with and (suspected) exposure to COVID-19
CPT/HCPCS: 36415; 80053; 85652; 87077; 99284; 81003; 81015; 85025; 85610; 85730; 86140; 87086; 87186; 93971; 99285

== ENCOUNTER 2020-12-31 15:00 | Outpatient (REF) | payer MEDICAID, SELFPAY ==
--- NOTE | 2020-12-31 14:45 | PAPFT_PTH ---
PATIENT: Hien Delgado LOC: [facility] [place] U#:[id number] AGE/SX: 60/F ROOM: RE12/31/[address]: Lydia Barragan : 1960 BED: DIS: 12/31/2020 SPEC #: [id number] RECD: 12/31/20 18:13 STATUS: MAIRSOL REQ #: [id number] DEWEY: 12/31/20 14:[address]: Lydia Barragan DEPT: [facility] Cytology RECD BY: Cinthya Reeder ENTERED: 12/31/20 18:13 SP TYPE: PAPFT OTHR DR: Dorothea Quintanilla APRN Tissues: 1 - CX/ENDOCX FOR PAP SMEARS Procedures: PAP THIN PREP/UVM Screening HPV DNA PROBE Comments: [id number]
== END 2020-12-31 15:01 | disposition home or self-care (01) ==
LOC: LBN 15:00
PROVIDERS: PCP Nurse Practitioner; Visit Provider Obstetrics & Gynecology Gynecology
DX: Z12.4 Encounter for screening for malignant neoplasm of cervix (principal); Z11.51 Encounter for screening for human papillomavirus (HPV)
CPT/HCPCS: 88142; 87624

== ENCOUNTER 2021-01-22 01:48 | Outpatient (CLI) | payer MEDICAID, SELFPAY ==
--- NOTE | 2021-01-22 08:00 | DI.MAMMO_ITS ---
Exam(s) MAMMO DIAGNOSTIC BI EXAM: MAMMO DIAGNOSTIC BI CLINICAL HISTORY: LT BREAST MASS, F/U ABNL MMAMO, R92.8 TECHNIQUE: Bilateral full field digital CC and MLO mammographic images were obtained with 3D tomosyn thesis and utilizing computer aided detection (CAD). COMPARISON: Available for comparison. FINDINGS: Masses/Architectural Distortion: Stable breast nodules. No suspicious masses or areas of architectur al distortion. Microcalcifications: No suspicious pleomorphic-type are seen. Skin Thickening/Nipple Retraction: None. IMPRESSION: 1. No significant interval change with no specific features of malignancy noted. 2. Unless there is more urgent need, screening mammography is recommended, as per [employer] [place] [employer] guidelines. 3. Findings were discussed with the patient on the date of the examination. BI-RADS Category 1 - Negative Breast Density - Category B - Scattered areas of fibroglandular density Breast density category C or D implies that the patient has dense breast tissue. Dense breast tissue is very common and is not abnormal but dense breast tissue can make it harder to find cancer on a ma mmogram. Also, dense breast tissue may increase their breast cancer risk. This information about the result of the mammogram report was provided to the patient to raise their awareness. Use this report when you speak with the patient about their risks for breast cancer, which includes their family hist ory. At that time, you may recommend for more screening tests (Ultrasound or MRI) as they might be us eful based on their risk. A negative radiographic report should not delay biopsy if a dominant or clinically suspicious mass is present. Up to ten percent of cancers are not identified on mammography. A negative report may reinforce clinical impression. Adenosis and dense breasts may obscure an underlying neoplasm. False positive reports average 6 to 10%. Patient will receive a letter notifying them of these results.
== END 2021-01-22 02:08 ==
PROVIDERS: PCP Nurse Practitioner; Visit Provider Obstetrics & Gynecology Gynecology
DX: R92.8 Other abnormal and inconclusive findings on diagnostic imaging of breast (principal)
CPT/HCPCS: 77062; 77066; G0279

== ENCOUNTER 2021-04-15 03:33 | Outpatient (CLI) | payer MEDICAID, SELFPAY ==
--- NOTE | 2021-04-15 14:40 | DI.CT_ITS ---
Exam(s) CT CHEST WO EXAM: CT CHEST WO CLINICAL HISTORY: f/u multiple nodules less than 4mm,r91.8 TECHNIQUE: Imaging Protocol: Axial computed tomography images with coronal and sagittal reformatted images were created and reviewed CONTRAST MATERIAL: Intravenous: Omnipaque 350 Contrast volume:structured data in ml. COMPARISON: CT CT CHEST/ABD/PEL W from 04/26/2020 FINDINGS: Tracheobronchial tree: No bronchiectasis or mucous plugging. Mediastinum and Lorene: No dominant adenopathy or fluid collection. Pulmonary parenchyma: Numerous scattered tiny pulmonary nodules less than 4 millimeters in size, some calcified. Findings are consistent with granulomatous disease. Mild upper lobe emphysematous and f ibrotic changes. No consolidation or dominant measurable mass. Pleura: No effusion or pneumothorax. Heart: The heart is mildly dilated. [id number] coronary artery calcifications are seen. Aorta: Thoracic aorta non-dilated. Upper abdomen: Calcified gallstone. Gallbladder partially included on the exam.. Lymph nodes: Within normal limits. Bones: Old left upper rib fractures. Degenerative disc changes. No compression fractures. Soft tissues: Unremarkable. IMPRESSION: Stable tiny scattered pulmonary nodules, less than 4 millimeters. The patient is at high risk for kim ng cancer a low-dose screening CT could be considered in 1 year. RADIATION DOSE DELIVERED: 516.01mGy.cm Total DLP DATA REPOSITORY: All CT scans at this facility are submitted to the National Radiology Data Registry (NRDR) Dose Index Registry (DIR) with the [employer] ([employer]). RADIATION OPTIMIZATION: All CT scans at this facility use at least one of these dose optimization te chniques: automated exposure control; mA and/or kV adjustment per patient size (includes targeted exa ms where dose is matched to clinical indication); or iterative reconstruction.
== END 2021-04-15 03:53 ==
PROVIDERS: PCP Nurse Practitioner; Visit Provider Nurse Practitioner
DX: R91.8 Other nonspecific abnormal finding of lung field (principal)
CPT/HCPCS: 71250

== ENCOUNTER 2021-04-15 04:25 | Outpatient (CLI) | payer MEDICAID, SELFPAY ==
[2021-04-20 15:17] LABS: 25-Hydroxy D Total 29 ng/mL; 25-Hydroxy D2 <4.0 ng/mL; 25-Hydroxy D3 29 ng/mL
== END 2021-04-15 04:26 | disposition home or self-care (01) ==
LOC: LBO 04:26
PROVIDERS: PCP Nurse Practitioner; Visit Provider Orthopaedic Surgery
DX: S82.841A Displaced bimalleolar fracture of right lower leg, initial encounter for closed fracture (principal)
CPT/HCPCS: 36415; 82306

== ENCOUNTER → 2021-07-15 02:42 | Outpatient (CLI) | payer MEDICAID, SELFPAY ==
--- NOTE | 2021-07-15 10:45 | DI.CT_ITS ---
Exam(s) CT LOWER EXTREMITY RT WO EXAM: CT LOWER EXTREMITY RT WO CLINICAL HISTORY: JT ARTHRODESIS STATUS, Z98.1; S/P SURGERY, F/U EXAM, Z09; SUBTALAR JT. TECHNIQUE: Imaging Protocol: Axial computed tomography images with coronal and sagittal reformatted images were created and reviewed. CONTRAST MATERIAL: Noncontrast COMPARISON: CR XR ANKLE RT COMPLETE from 05/23/[address] LOWER EXTREMITY RT WO from 07/27/2020 RF from 08/22/2020 FINDINGS: Two screws are noted through the calcaneus into the talus, through the posterior talocalcaneal joint. There is some bony bridging across the joint. No acute fractures are seen. The bones appear osteo porotic from disuse. There is a fracture old fracture deformity of the lateral talus. There is an o ld deformity of the distal fibula related to removal of prior hardware. There is moderate narrowing of the tibiotalar joint space. No talar dome defect. IMPRESSION: Status post posterior talocalcaneal joint effusion. Old fracture deformity of the lateral talus. RADIATION DOSE DELIVERED: 275.22mGy.cm Total DLP DATA REPOSITORY: All CT scans at this facility are submitted to the National Radiology Data Registry (NRDR) Dose Index Registry (DIR) with the [employer] (ACR). RADIATION OPTIMIZATION: All CT scans at this facility use at least one of these dose optimization te chniques: automated exposure control; mA and/or kV adjustment per patient size (includes targeted exa ms where dose is matched to clinical indication); or iterative reconstruction.
== END ==
PROVIDERS: PCP Nurse Practitioner; Visit Provider Physician Assistant
DX: Z09 Encounter for follow-up examination after completed treatment for conditions other than malignant neoplasm (principal); Z98.1 Arthrodesis status; Z87.81 Personal history of (healed) traumatic fracture; M19.071 Primary osteoarthritis, right ankle and foot
CPT/HCPCS: 73700

== ENCOUNTER → 2021-08-14 11:48 | Outpatient (CLI) | payer MEDICAID, SELFPAY ==
--- NOTE | 2021-08-14 | DI.RAD_ITS ---
Exam(s) XR ANKLE RT COMPLETE EXAM: XR ANKLE RT COMPLETE CLINICAL HISTORY: S/P ANKLE FUSION--Z98.1. TECHNIQUE: 2D digital imaging was performed. Three views. COMPARISON: No exams were available for comparison FINDINGS: BONES: No acute fracture is present. No bony destructive lesion is seen. They screws no seen extendi ng through the talocalcaneal joint for fusion. There are lucencies in the distal fibula related to p revious existing fixation plate. JOINTS: The ankle mortise is normally aligned. No tibiotalar joint space narrowing. SOFT TISSUE: Diffuse soft tissue swelling and edema. IMPRESSION: Status post talocalcaneal fusion. DATA REPOSITORY: RADIATION DOSE DELIVERED:
== END ==
PROVIDERS: PCP Nurse Practitioner; Visit Provider Orthopaedic Surgery
DX: Z98.1 Arthrodesis status (principal)
CPT/HCPCS: 73610

== ENCOUNTER 2021-10-01 03:02 | Outpatient (CLI) | payer MEDICAID, SELFPAY ==
[2021-10-01 07:22] LABS: HCT 43.1 % (36.0-46.0); HGB 14.1 g/dL (11.2-15.7); MCH 31.5 pg (27.0-33.0); MCHC 32.7 % (32.0-36.0); MCV 96 fL (80-95); MPV 10.5 fL (8.0-11.0); Platelet Count 167 10^3/uL (130-400); RBC 4.48 10^6/uL (3.93-5.22); RDW 12.8 % (11.7-14.6); WBC 7.44 10^3/uL (4.4-10.8)
[2021-10-01 07:38] LABS: ALT 16 U/L (14-59); AST 15 U/L (15-37); Albumin 3.7 g/dL (3.4-5.0); Alkaline Phosphatase 95 U/L (46-116); Anion Gap 8.7 mmol/L (3-11); BUN 16 mg/dL (7-18); Bilirubin, Total 0.3 mg/dL (0.2-1.0); CO2 25.3 mmol/L (21.0-32.0); CREATININE 0.6 mg/dL (0.55-1.02); Calcium 9.8 mg/dL (8.5-10.1); Calculated LDL 151 mg/dL (<100); Chloride 107 mmol/L (98-107); Cholesterol 223 mg/dL (<200); Glucose 112 mg/dL (74-106); HDL Cholesterol 57 mg/dL (40-60); Potassium 4.3 mmol/L (3.5-5.1); Sodium 141 mmol/L (136-145); Total Protein 7.2 g/dL (6.4-8.2); Triglyceride 77 mg/dL (<150)
[2021-10-01 07:57] LABS: Hemoglobin A1C 5.9 % (<5.7)
[2021-10-03 05:28] LABS: Vitamin D 25 Total 49.4 ng/mL (30-100)
== END 2021-10-01 03:03 | disposition home or self-care (01) ==
LOC: LBO 03:02
PROVIDERS: Internal Medicine; PCP Nurse Practitioner; Visit Provider Nurse Practitioner
DX: E55.9 Vitamin D deficiency, unspecified (principal); E78.5 Hyperlipidemia, unspecified; R73.01 Impaired fasting glucose; E11.9 Type 2 diabetes mellitus without complications
CPT/HCPCS: 36415; 80053; 80061; 82306; 85027; 83036

== ENCOUNTER → 2021-10-08 01:54 | Outpatient (CLI) | payer MEDICAID, SELFPAY ==
--- NOTE | 2021-10-08 | DI.RAD_ITS ---
Exam(s) XR ANKLE RT COMPLETE EXAM: XR ANKLE RT COMPLETE CLINICAL HISTORY: S/P ANKLE FUSION, Z98.1, S/P RT ANKLE SCOPE/SUBTALAR ARTHRODESIS TECHNIQUE: COMPARISON: CR XR ANKLE RT COMPLETE from 08/14/2021 FINDINGS: Three views were obtained. Note is again made of evidence of prior fixation of the distal fibula. T here is a hindfoot arthrodesis with 2 lag screws which appear intact. No other acute abnormality see n. No change in alignment from August 14 films. IMPRESSION: RADIATION DOSE DELIVERED: Total DLP
== END ==
PROVIDERS: PCP Nurse Practitioner; Visit Provider Orthopaedic Surgery
DX: Z98.1 Arthrodesis status (principal)
CPT/HCPCS: 73610

== ENCOUNTER → 2021-10-15 01:17 | Outpatient (CLI) | payer MEDICAID, SELFPAY ==
--- NOTE | 2021-10-15 | DI.RAD_ITS ---
Exam(s) XR ANKLE RT COMPLETE EXAM: XR ANKLE RT COMPLETE CLINICAL HISTORY: S/P RT ANKLE FUSION,Z98.1. TECHNIQUE: 2D digital imaging was performed of the right ankle. Three images were obtained. AP, la teral and oblique views were obtained. COMPARISON: CR XR ANKLE RT COMPLETE from 10/08/2021 FINDINGS: BONES: No acute fracture is present. No bony destructive lesion is seen. There is an old distal fibu lar fracture deformity. JOINTS: The ankle mortise is normally aligned. There again seen postsurgical changes of hind foot fus ion. The orthopedic hardware appears stable. SOFT TISSUE: There is diffuse soft tissue swelling about the ankle. IMPRESSION: No acute fracture or dislocation. DATA REPOSITORY: RADIATION DOSE DELIVERED:
== END ==
PROVIDERS: PCP Nurse Practitioner; Visit Provider Orthopaedic Surgery
DX: Z98.1 Arthrodesis status (principal)
CPT/HCPCS: 73610

== ENCOUNTER 2021-11-26 12:02 | Outpatient (CLI) | payer MEDICAID, SELFPAY ==
--- NOTE | 2021-11-26 11:30 | DI.RAD_ITS ---
Exam(s) XR WRIST LT LIMITED EXAM: XR WRIST LT LIMITED CLINICAL HISTORY: RADIUS AND ULNA FX F/U. TECHNIQUE: 2D digital imaging was performed of the left wrist. Two images were obtained. PA and la teral views were obtained. COMPARISON: CR XR WRIST LT LIMITED from 10/31/2020 FINDINGS: BONES: There healed distal left radial and ulnar fractures. No acute fractures identified. There is again seen a plate and screw fixation set in the distal left radius. No evidence of hardware failur e is seen. No bony destructive lesion is seen. JOINTS: The carpal bones are normally aligned. SOFT TISSUE: Normal. IMPRESSION: 1. No acute fracture or dislocation. 2. Healed distal left radial and ulnar fractures. DATA REPOSITORY: RADIATION DOSE DELIVERED:
== END 2021-11-26 12:03 | disposition home or self-care (01) ==
LOC: DIORS 12:02
PROVIDERS: PCP Nurse Practitioner; Referring Provider Nurse Practitioner; Visit Provider Student in an Organized Health Care Education/Training Program
DX: S52.502D Unspecified fracture of the lower end of left radius, subsequent encounter for closed fracture with routine healing (principal); S52.602D Unspecified fracture of lower end of left ulna, subsequent encounter for closed fracture with routine healing; X58.XXXD Exposure to other specified factors, subsequent encounter
CPT/HCPCS: 73100

== ENCOUNTER 2021-12-06 09:35 | Day surgery (SDC) | payer MEDICAID, SELFPAY ==
--- NOTE | 2021-12-06 07:05 | W.PM.OP ---
Operative Note Operative Note DATE OF PROCEDURE: 12/06/21 PRE-OP DIAGNOSIS: Left wrist painful hardware POST-OP DIAGNOSIS: same PROCEDURE: Left distal radius removal of hardware, CPT #66573 SURGEON: Roger Guzmán SUPERVISOR [employer]: [employer] Refer to Anesthesia Record Patient was transported to: PACU Patient's condition: stable Indications: Please see complete medical record for details. Procedure Description: In the operating room, [general] anesthesia was induced. The patient was positioned [supine] on the operating room table. All bony prominences were well-padded. Preoperative antibiotics were administered. The [site] was prepped and draped in the usual sterile fashion. The correct patient, procedure, and side of the procedure were all verified prior to incision. [procedure description] The patient awoke from anesthesia without complication and was transferred to the recovery room in a stable condition.
--- NOTE | 2021-12-06 07:06 | W.PM.DSUDISC ---
Discharge Plan Disposition Patient Disposition: HOME Condition: Stable Discharge Details Reason For Visit: Left wrist surgery Attending Provider: Roger Guzmán Primary Care Provider: Dorothea Quintanilla Home Meds and New Rx's Prescriptions: Continued aspirin [Adult Low Dose Aspirin] 81 mg tablet,delayed release (DR/EC) 81 mg PO DAILY acetaminophen 650 mg tablet extended release 650 mg PO Q8H furosemide 20 mg tablet 20 mg PO DAILY PRN (Reason: edema) Qty: 30 3RF Rx Instructions: a month ago albuterol sulfate [ProAir HFA] 90 mcg/actuation HFA aerosol inhaler 1 - 2 puff Inhalation QID PRN (Reason: bronchospasm) Qty: 1 6RF fluticasone propionate 50 mcg/actuation spray,suspension 2 spray intranasal DAILY Qty: 16 12RF Rx Instructions: administer into each nostril rosuvastatin 5 mg tablet 5 mg PO DAILY Qty: 90 3RF zolpidem 10 mg tablet 10 mg PO QHS PRN (Reason: sleep) Qty: 30 1RF carbidopa-levodopa [Sinemet] 10-100 mg tablet 1 tab PO HS PRN (Reason: RLS) Qty: 90 3RF cholecalciferol (vitamin D3) [Vitamin D3] 50 mcg (2,000 unit) Capsule 50 mcg PO DAILY citalopram 20 mg tablet 20 mg PO DAILY Discharge Instructions Additional Instructions: Surgery: Left distal radius removal of hardware Activity: [NWB] in [Sling / Brace / Splint] [at all times / for comfort] A physical therapy prescription will be provided separately [today / in the office at follow up]. Prescriptions: Aspirin [81 mg] take [1 daily] to prevent a blood clot [for 2 weeks] Naproxen 250 mg take 1-2 every 12 hours with a meal as needed for moderate pain Oxycodone 5 mg take 1-2 every 4-6 hours as needed for severe pain You may use [id number]-orenqkt Tylenol (acetaminophen) as needed for mild pain. These pain medications may be taken all at once or in different combinations as needed. Also, recommend Colace (docusate) as a stool softener as surgery and pain medicine cause constipation. You may try [id number]-ceh-rdkpqlf diphenhydramine (Benadryl) 25-50 mg nightly as a sleep aid Dressings: [Leave splint and dressing in place until follow-up. Keep clean and dry at all times.] [Leave dressing in place for 3 days. May then remove and leave open to air or cover incisions with Band-Aids. May shower after 5 days.] Follow-up: 10-[address] Guzmán You may take off the leg compression stockings this evening at home. You may also leave them on a few days longer if you have a history of leg swelling or edema. Let us know right away if you develop any redness, drainage, fevers, chest pain, or trouble breathing. Do not drink alcohol or drive for at least 24 hours after anesthesia. Please call the office during business hours with any questions or concerns. Discharge Orders Discharge Orders: Discharge Order (Routine); Ordered 12/06/21 Ordered By: Roger Guzmán DS: Diagnosis Discharge Diagnosis (1) Painful orthopaedic hardware: Status: Acute (2) Fracture of distal radius and ulna:
== END 2021-12-06 09:36 | disposition home or self-care (01) ==
LOC: SUR 09:36
PROVIDERS: PCP Nurse Practitioner; Visit Provider Student in an Organized Health Care Education/Training Program
DX: T84.84XA Pain due to internal orthopedic prosthetic devices, implants and grafts, initial encounter (principal); Z53.8 Procedure and treatment not carried out for other reasons

== ENCOUNTER 2021-12-12 09:35 | Day surgery (SDC) | payer MEDICAID, SELFPAY ==
[2021-12-12] VITALS (8 sets, daily range): BP systolic 97–149; BP diastolic 40–79; PULSE 61–68; RESP 11–18; TEMP 36.1–36.6; O2SAT 92–99; BMI 41.1
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
[2021-12-12] MEDS: Lactated Ringers 1,000 ML 30 ML IV (10:12)
--- NOTE | 2021-12-12 10:45 | DI.RAD_ITS ---
Exam(s) XR WRIST LT LIMITED EXAM: XR WRIST LT LIMITED CLINICAL HISTORY: left wrist hardware removal TECHNIQUE: 2D and realtime digital imaging was performed. COMPARISON: CR XR WRIST LT LIMITED from 11/26/2021 FINDINGS: C-arm fluoroscopy was utilized by Dr. Guzmán. Please see the procedure note. Hard copy shows removal of hardware from the distal radius. IMPRESSION: RADIATION DOSE DELIVERED: amena Apple=0.04 mGy
--- NOTE | 2021-12-12 11:10 | W.ANESNERVE ---
Nerve Block Single Injection Procedure Date and Time Date Performed: 12/12/21 Procedure Start: 10:50 Location Where Procedure Performed Procedure Location: Day Surgery Unit Reason Performed: Postoperative Analgesia Requesting Provider: Roger Guzmán Timeout Performed Timeout Performed: Yes Monitoring Used ECG, Blood Pressure and SpO2 Sterility Sterility: Hand Hygiene, Surgical Cap, Surgical Mask, Sterile Gloves and Chlorhexidine Sedation Given During Procedure Sedation Given (Indicate Dose Given): Versed IV Dose:: 2 mg Patient Mental Status Patient Mental Status: Sedate with meaningful communication Nerve Block 1st Nerve Block: Laterality: Left Block Type: Superficial Cervical Plexus Needle / Catheter Used: 100mm SonoPlex II Local Anesthetic Bolus (Indicate Dose Given): Lidocaine used for local infiltration of skin and Bupivacaine 0.375% Dose:: 20 mL Additives (Indicate Dose Given): None Ultrasound: Sterile probe cover and gel used Ultrasound Image Saved?: Yes Nerve Stimulator: Supplement to Ultrasound use and No twitch or parasthesia noted < 0.5 mA (breif twitch of lower arm noted, stopped with minimal needle manipulation. ) Paresthesia: None Procedure Tolerated: No Complications Procedure Outcome: Successful Performed By: Patrick Purdy
[2021-12-12] MEDS: ceFAZolin 2 GM/50 ML BAG IVPB (11:47)
--- NOTE | 2021-12-12 13:12 | PDOC.DSDIS_ITS ---
Date of service: 12/12/21 Time of Service: 13:12 Discharge Plan Disposition Patient Disposition: HOME Condition: Stable Discharge Details Reason For Visit: Left wrist surgery Attending Provider: Roger Guzmán Primary Care Provider: Dorothea Quintanilla Home Meds and New Rx's Prescriptions: New acetaminophen-codeine 300-30 mg tablet 1 tab PO Q6H PRN (Reason: severe pain) Qty: 12 0RF Continued aspirin [Adult Low Dose Aspirin] 81 mg tablet,delayed release (DR/EC) 81 mg PO DAILY acetaminophen 650 mg tablet extended release 650 mg PO Q8H furosemide 20 mg tablet 20 mg PO DAILY PRN (Reason: edema) Qty: 30 3RF Rx Instructions: a month ago albuterol sulfate [ProAir HFA] 90 mcg/actuation HFA aerosol inhaler 1 - 2 puff Inhalation QID PRN (Reason: bronchospasm) Qty: 1 6RF fluticasone propionate 50 mcg/actuation spray,suspension 2 spray intranasal DAILY Qty: 16 12RF Rx Instructions: administer into each nostril rosuvastatin 5 mg tablet 5 mg PO DAILY Qty: 90 3RF zolpidem 10 mg tablet 10 mg PO QHS PRN (Reason: sleep) Qty: 30 1RF carbidopa-levodopa [Sinemet] 10-100 mg tablet 1 tab PO HS PRN (Reason: RLS) Qty: 90 3RF cholecalciferol (vitamin D3) [Vitamin D3] 50 mcg (2,000 unit) Capsule 50 mcg PO DAILY citalopram 20 mg tablet 20 mg PO DAILY nicotine 7 mg/24 hr patch 24 hour 1 patch transdermal Q24H Label Comments: APPLY 1 PATCH EVERY 24 HOURS Discharge Instructions Additional Instructions: Surgery: Left wrist removal of hardware Activity: Rest and elevate the left wrist for few days. As you feel ready, gently increase use and motion of the left wrist over the next few weeks. Prescriptions: Resume home aspirin tomorrow, 24 hours after surgery Tylenol #3 (acetaminophen-codeine 300-30mg) take 1 every 6 hours as needed for severe pain You may use nxkl-gwr-nnilapc Tylenol (acetaminophen) as needed for mild pain. These pain medications may be taken all at once or in different combinations as needed. Also, recommend Colace (docusate) as a stool softener as surgery and pain m edicine cause constipation. You may try kapl-chi-eelzffa diphenhydramine (Benadryl) 25-50 mg nightly as a sleep aid Dressings: Leave Band-Aid in place until follow-up. Please keep clean and dry. You may loosen, adjust, or remove Roly bandage. Follow-up: 10-[address] Guzmán You may take off the leg compression stockings this evening at home. You may also leave them on a few days longer if you have a history of leg swelling or edema. Let us know right away if you develop any redness, drainage, fevers, chest pain, or trouble breathing. Do not drink alcohol or drive for at least 24 hours after anesthesia. Please call the office during business hours with any questions or concerns. Discharge Orders Discharge Orders: Discharge Order (Routine); Ordered 12/12/21 Ordered By: Roger Guzmán DS: Diagnosis Discharge Diagnosis (1) Open fracture of left distal radius and ulna: Status: Acute (2) Painful orthopaedic hardware: Status: Acute
--- NOTE | 2021-12-12 13:18 | W.PM.OP ---
Date of service: 12/12/21 Time of Service: 13:18 Operative Note Operative Note DATE OF PROCEDURE: 12/12/21 PRE-OP DIAGNOSIS: Left wrist symptomatic hardware POST-OP DIAGNOSIS: same PROCEDURE: Left distal radius removal of hardware, CPT #65133: Volar locking plate and screws SURGEON: Roger Guzmán WINK CUTTER OPERATOR: Pablo Jordan ANESTHESIA TYPE: Local By Surgeon, General LMA/ETT and Primary Nerve Block Refer to Anesthesia Record ESTIMATED BLOOD LOSS: 5 TOURNIQUET TIME: 0 COMPLICATIONS: None Patient was transported to: PACU Patient's condition: stable Indications: Please see complete medical record for details. Procedure Description: In the operating room, general anesthesia was induced. The patient was positioned supine on the operating room table. All bony prominences were well-padded. Preoperative antibiotics were administered. The left wrist was prepped and draped in the usual sterile fashion. The correct patient, procedure, and side of the procedure were all verified prior to incision. The prior surgical incision and site was pretty injected with 0.25% bupivacaine containing epinephrine. The central aspect of the previous incision was reopened sharply through the skin and then bluntly through healed scar layers taking care to identify and protect the radial artery radially and the FCR and remainder of tendons and medial nerve ulnarly. This approach was carried down to pronator quadratus and scarring over the volar plate. This was elevated exposing the screws distally and then proximally. Carefully each screw was removed in entirety without issue. The plate was then removed as well. Fluoroscopy confirmed complete hardware removal. The distal radius volar surface was rasped to smooth contour. The wound was copiously irrigated with normal saline. Subcutaneous tissue was closed using 3-0 Monocryl. The incision was closed with 3-0 Monocryl running. Skin glue applied over the incision followed by Mepilex bandage. The wrist and hand was gently compressed wrapped in an Roly bandage. The patient awoke from anesthesia without complication and was transferred to the recovery room in a stable condition.
--- NOTE | 2021-12-12 13:21 | W.ANESPOSTOP ---
Postoperative Evaluation Date, Time and Location Date Performed: 12/12/21 Time Performed: 13:21 Patient Location: PACU Vital Signs Most Recent Imported Vital Signs: Most Recent Vital Signs Temp Pulse Resp BP Pulse Ox 36.3 C L 66 17 149/79 H 97 12/12/21 10:45 12/12/21 10:45 12/12/21 10:45 12/12/21 10:45 12/12/21 10:45 Pain Score Most Recent Pain Score: Most Recent Pain Score Pain Level 0 12/12/21 10:45 Assessment Mental Status: Arousable with meaningful communication Airway and Respiratory Function: Patent airway with normal (patient baseline) respiratory exam Cardiovascular Function: Hemodynamically Stable Hydration Status: Adequately Hydrated Nausea & Vomiting: No Nausea or Vomiting Pain: Pain is tolerable per patient (was /10) Peripheral Nerve Block: Regional nerve block not resolved at time of post operative discharge
== END 2021-12-12 14:30 | disposition home or self-care (01) ==
PROVIDERS: PCP Nurse Practitioner; Visit Provider Student in an Organized Health Care Education/Training Program
PROC: (CPT 20680; principal; 2021-12-12 12:00)
DX: T84.84XA Pain due to internal orthopedic prosthetic devices, implants and grafts, initial encounter (principal)
CPT/HCPCS: 20680; 76942; 73100; J0690; J1100; J2250; J2405; J2704

== ENCOUNTER → 2022-01-30 01:20 | Outpatient (CLI) | payer MEDICAID, SELFPAY ==
--- NOTE | 2022-01-30 | DI.MAMMO_ITS ---
Exam(s) MAMMO SCREENING EXAM: MAMMO SCREENING CLINICAL HISTORY: screening,z12.39 TECHNIQUE: Mammograms were interpreted according to the usual protocol including computer analysis w [email or web address] CAD system, tomosynthesis and C-view imaging. COMPARISON: 2012 through 2020 FINDINGS: The breasts are composed of scattered fibroglandular densities, Breast Density category B. No suspicious masses or suspicious microcalcifications are seen. No skin thickening or abnormal axillary lymph nodes are seen. There has been no significant change from prior exams. IMPRESSION: BI-RADS Category 1, Negative mammogram Yearly screening mammography is recommended. Breast Density - Category B, scattered fibroglandular densities. A negative radiographic report should not delay biopsy if a dominant or clinically suspicious mass is present. Up to ten percent of cancers are not identified on mammography. A negative report may reinforce clinical impression. Adenosis and dense breasts may obscure an underlying neoplasm. False positive reports average 6 to 10%. Patient will receive a letter notifying them of these results.
== END ==
PROVIDERS: PCP Nurse Practitioner; Visit Provider Nurse Practitioner
DX: Z12.31 Encounter for screening mammogram for malignant neoplasm of breast (principal)
CPT/HCPCS: 77063; 77067

== ENCOUNTER 2022-04-03 07:24 | Day surgery (SDC) | payer MEDICAID, SELFPAY ==
--- NOTE | 2022-04-02 21:13 | PDOC.DSDIS_ITS ---
Date of service: 04/03/22 Time of Service: 09:19 Discharge Plan Disposition Patient Disposition: Home Condition: Good Discharge Details Reason For Visit: Screening colonoscopy Attending Provider: Deacon Palma Primary Care Provider: Dorothea Quintanilla Home Meds and New Rx's Prescriptions: Continued aspirin [Adult Low Dose Aspirin] 81 mg tablet,delayed release (DR/EC) 81 mg PO DAILY acetaminophen 650 mg tablet extended release 650 mg PO Q8H furosemide 20 mg tablet 20 mg PO DAILY PRN (Reason: edema) Qty: 30 3RF Rx Instructions: a month ago fluticasone propionate 50 mcg/actuation spray,suspension 2 spray intranasal DAILY Qty: 16 12RF Rx Instructions: administer into each nostril carbidopa-levodopa [Sinemet] 10-100 mg tablet 1 tab PO HS PRN (Reason: RLS) Qty: 90 3RF cholecalciferol (vitamin D3) [Vitamin D3] 50 mcg (2,000 unit) capsule 50 mcg PO DAILY Qty: 90 3RF albuterol sulfate [ProAir HFA] 90 mcg/actuation HFA aerosol inhaler 1 - 2 puff Inhalation QID PRN (Reason: bronchospasm) Qty: 1 6RF Rx Instructions: Please dispense generic or Ventolin if covered. citalopram 20 mg tablet 20 mg PO DAILY Qty: 90 3RF zolpidem 10 mg tablet 10 mg PO QHS PRN (Reason: sleep) Qty: 30 0RF acetaminophen-codeine 300-30 mg tablet 1 tab PO Q6H PRN (Reason: severe pain) Qty: 12 0RF Discontinued bisacodyl [Dulcolax (bisacodyl)] 5 mg tablet,delayed release (DR/EC) 5 mg PO ONCE Qty: 4 0RF Rx Instructions: Take according to provider's instructions for colonoscopy prep. polyethylene glycol 3350 17 gram/dose powder 17 g PO ONCE Qty: 238 0RF Rx Instructions: To be taken as directed by prescriber's office for colonoscopy prep. Discharge Instructions Instructions: Colorectal Polyps (GEN), Diverticulosis (GEN), Diverticulosis D iet (GEN) Additional Instructions: Hien, we were able to complete your colonoscopy today without any difficulty. I did find a total of 5 polyps. I removed them all completely. I will notify you when I have the pathology report regarding timing of your next colonoscopy. You also have some very mild diverticulosis. I have attached some information here regarding diverticulosis. 1. If tolerated, consume a soft, low fiber diet for 1-2 days. 2[address] Do not drive, drink alcohol, operate machinery, make critical decisions, or do activities that require coordination or balance for 24 hours. 3. Because air was put into your colon during the procedure, expelling air from your rectum (passing gas or farting) is normal. 4. You may not have a bowel movement for 1-3 days because of the colonoscopy prep. This is normal. 5. Go directly to the emergency room if you notice any of the following: Develop chills (warm to touch), or if you have a thermometer and your temperature is above 101 Difficulty breathing or difficultly swallowing Persistent vomiting Severe abdominal pain, other than gas cramps Severe chest pain Black, tarry stools Any bleeding ? exceeding one tablespoon 6. Call your physician if the site where your intravenous was started becomes red, swollen, painful, and warm to touch. 7. Your physician has reviewed your pre-procedure medications. Please continue to take those medications as previously ordered. You will be given specific information/education regarding any changes to your medications before leaving. Activity:: Activity as Tolerated Diet:: As Tolerated Discharge Orders Discharge Orders: Discharge Order (Routine); Ordered 04/02/22 Ordered By: Deacon Palma DS: Diagnosis Discharge Diagnosis (1) Tubular adenoma: Status: Acute Asessment and Plan: Follow-up on polypectomy pathology report
--- NOTE | 2022-04-02 21:15 | W.COLOREPORT ---
Date of service: 04/03/22 Time of Service: 09:18 Colonoscopy Report Date of procedure: 04/03/22 Pre-op diagnosis general: Screening colonoscopy Procedure: Colonoscopy with polypectomy Surgeon: Deacon Palma Anesthesia Type: General:No Airway Estimated blood loss (mL): 15 Pathology: other (Rectal polyps x2, colon polyp at 45 cm, colon polyps at 20 cm x 2) Complications: None Disposition: same day Indications: Hien is 61 years old. She has a first degree relative with colon cancer and has had multiple polyps removed during previous screening colonoscopies. Prep: Miralax/Dulcolax Procedure Start Time: 08:48 Procedure End Time: 09:08 Retraction Time: 12 Findings: Rectal polyps, 2 polyps at 20 cm, 1 polyp at 45 cm Procedure Description: After the induction of monitored anesthetic care, and with the patient in left lateral decubitus position, I began by performing an external anorectal exam.? Perineum and skin were normal, as was the anal verge.? There was no evidence of external hemorrhoids.? Next, I performed a digital rectal exam.? I did not appreciate any abnormal findings.? Next, I advanced a colonoscope into the rectal vault.? I performed retroflexion.? There were 2 rectal polyps. Both were sessile. Both were less than 0.5 cm. I removed them both with cold forcep polypectomy.? Using insufflation, I then advanced the colonoscope beyond the rectal folds and into the sigmoid colon before advancing towards the cecum.? The quality of the prep was excellent.? The scope was noted to be in the cecum by identification of the ileocecal valve and appendiceal orifice.? I then began withdrawing the colonoscope using repeated irrigation as necessary for full evaluation of the colonic mucosa. Around 45 cm from the anal verge I identified a 0.25 cm polyp. ?It appeared sessile in character. ?I was able to remove this with a cold forceps. ?I examined the site, and there was minimal bleeding. ?Once this was completed, I continued to withdraw the scope and examine the remainder of the colonic mucosa.? Around 20 cm from the anal verge I found 2 more polyps. Both were sessile. Both were less than 0.5 cm. Like the others, I removed these with cold forcep polypectomy. Once the scope was withdrawn to the level of the rectum, great care was taken to examine portions of the rectal folds.? Finally, the scope was withdrawn and the patient was brought to the same-day surgery recovery unit as the anesthetic wore off. ?The findings and instructions were shared with the patient prior to discharge.
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
[2022-04-03 07:55] VITALS: BP 161/94; PULSE 79; RESP 16; TEMP 36.6; O2SAT 97
[2022-04-03 08:24] VITALS: BMI 40.6
[2022-04-03] MEDS: Lactated Ringers 1,000 ML 80 ML IV (08:25)
--- NOTE | 2022-04-03 08:50 | BOWEL_PTH ---
PATIENT: Hien Delgado LOC: [facility] U#:[id number] AGE/SX: 61/F ROOM: RE04/03/[address]: Deacon Palma MD : [id number] BED: DIS: 04/03/2022 SPEC #: [id number] RECD: 04/03/22 12:48 STATUS: MARISOL RE #: [id number] DEWEY: 04/03/22 08:[address]: Deacon Palma DEPT: Surgical Specimen RECD BY: Cinthya Reeder ENTERED: 04/03/22 12:49 SP TYPE: Bowel OTHR DR: Dorothea Quintanilla APRN Tissues: 1 - BIOPSY BOWEL 2 - BIOPSY BOWEL 3 - BIOPSY BOWEL Procedures: GROSS AND MICRO LEVEL 4 Comments: [id number]
[2022-04-03 09:15] VITALS: BP 145/77; PULSE 64; RESP 20; TEMP 36.2; O2SAT 97
[2022-04-03 09:49] VITALS: BP 148/64; PULSE 62; RESP 18; TEMP 36.4; O2SAT 98
--- NOTE | 2022-04-03 10:15 | W.ANESPOSTOP ---
Postoperative Evaluation Date, Time and Location Date Performed: 04/03/22 Time Performed: 10:15 Patient Location: Day Surgery Unit Vital Signs Most Recent Imported Vital Signs: Most Recent Vital Signs Temp Pulse Resp BP Pulse Ox 36.4 C L 62 18 148/64 H 98 04/03/22 09:49 04/03/22 09:49 04/03/22 09:49 04/03/22 09:49 04/03/22 09:49 Pain Score Most Recent Pain Score: Most Recent Pain Score Pain Level 0 04/03/22 09:49 Assessment Mental Status: Awake (Alert & Oriented to Patient Baseline) Airway and Respiratory Function: Patent airway with normal (patient baseline) respiratory exam Cardiovascular Function: Hemodynamically Stable Hydration Status: Adequately Hydrated Nausea & Vomiting: No Nausea or Vomiting Pain: Pt. Denies Any Pain Peripheral Nerve Block: Patient did not receive a nerve block
== END 2022-04-03 10:10 | disposition home or self-care (01) ==
LOC: SUR 07:24
PROVIDERS: PCP Nurse Practitioner; Visit Provider Surgery
PROC: 0DJD8ZZ Inspection of Lower Intestinal Tract, Via Natural or Artificial Opening Endoscopic (ICD-10-PCS; CPT 45378; principal; 2022-04-03 09:00)
DX: Z12.11 Encounter for screening for malignant neoplasm of colon (principal); K62.1 Rectal polyp; K63.5 Polyp of colon; Z80.0 Family history of malignant neoplasm of digestive organs; Z86.010 Personal history of colon polyps
CPT/HCPCS: 45380; 88305

== ENCOUNTER 2022-04-29 02:28 | Outpatient (CLI) | payer MEDICARE, MEDICAID, SELFPAY ==
[2022-04-29 09:32] LABS: Hemoglobin A1C 5.6 % (<5.7)
[2022-04-29 09:37] LABS: Calculated LDL 194 mg/dL (<100); Cholesterol 265 mg/dL (<200); HDL Cholesterol 56 mg/dL (40-60); Triglyceride 77 mg/dL (<150)
== END 2022-04-29 02:29 | disposition home or self-care (01) ==
LOC: LBO 02:28
PROVIDERS: Absent Provider Nurse Practitioner; PCP Nurse Practitioner; Referring Provider Nurse Practitioner; Visit Provider Nurse Practitioner
DX: E78.00 Pure hypercholesterolemia, unspecified (principal); R73.03 Prediabetes
CPT/HCPCS: 36415; 80061; 83036

== ENCOUNTER 2022-06-06 00:34 | Outpatient (CLI) | payer MEDICARE, MEDICAID, SELFPAY ==
--- NOTE | 2022-06-06 06:30 | DI.CT_ITS ---
Exam(s) CT CHEST WO EXAM: CT CHEST WO CLINICAL HISTORY: f/u lung nodules, compare ct 04/15/21, r91.8 TECHNIQUE: Imaging Protocol: Axial computed tomography images with coronal and sagittal reformatted images were created and reviewed CONTRAST MATERIAL: Intravenous: Omnipaque 350 Contrast volume:structured data ml. COMPARISON: CT CT CHEST WO from 04/15/2021 FINDINGS: Pulmonary parenchyma: Mild emphysema 7 is changes. Mild scarring and fibrotic changes. Scattered ti ny nodules greater in the upper lobes, 1-2 millimeters in size. Some calcified nodules. No consolid ation. No dominant measurable mass. Tracheobronchial tree: No bronchiectasis or mucous plugging. Mediastinum and [place]: No dominant adenopathy or fluid collection. Pleura: No effusion or pneumothorax. Heart: The heart is not dilated. [id number] coronary artery calcifications are seen. Aorta: Thoracic aorta non-dilated. Mild atherosclerotic changes. Upper abdomen: Stable prominence of the left adrenal gland. Gallstone. No gallbladder wall thicken ing. Bones: Degenerative disc changes. Soft tissues: Unremarkable. IMPRESSION: Stable tiny pulmonary nodules. No further follow-up is indicated unless the patient is at high risk for lung cancer, in that case a low-dose annual screening CT could be performed. RADIATION DOSE DELIVERED: 684.75mGy.cm Total DLP DATA REPOSITORY: All CT scans at this facility are submitted to the National Radiology Data Registry (NRDR) Dose Index Registry (DIR) with the [employer] (A[employer]). RADIATION OPTIMIZATION: All CT scans at this facility use at least one of these dose optimization te chniques: automated exposure control; mA and/or kV adjustment per patient size (includes targeted exa ms where dose is matched to clinical indication); or iterative reconstruction.
== END 2022-06-06 00:54 ==
LOC: DI 00:35
PROVIDERS: PCP Nurse Practitioner; Visit Provider Nurse Practitioner
DX: R91.8 Other nonspecific abnormal finding of lung field (principal)
CPT/HCPCS: 71250

== ENCOUNTER 2022-08-25 03:39 | Outpatient (CLI) | payer MEDICARE, MEDICAID, SELFPAY ==
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
== END 2022-08-25 03:59 ==
LOC: DI 03:39
PROVIDERS: PCP Nurse Practitioner; Visit Provider Physician Assistant
DX: Z98.1 Arthrodesis status (principal); Z09 Encounter for follow-up examination after completed treatment for conditions other than malignant neoplasm
CPT/HCPCS: 36415; 80061; 73700

== ENCOUNTER 2022-08-25 04:21 | Outpatient (CLI) | payer MEDICARE, MEDICAID, SELFPAY ==
[2022-08-25 07:45] LABS: Calculated LDL 152 mg/dL (<100); Cholesterol 221 mg/dL (<200); HDL Cholesterol 55 mg/dL (40-60); Triglyceride 73 mg/dL (<150)
== END 2022-08-25 04:22 | disposition home or self-care (01) ==
LOC: LBO 04:21
PROVIDERS: Absent Provider Nurse Practitioner; PCP Nurse Practitioner; Referring Provider Nurse Practitioner; Visit Provider Nurse Practitioner
DX: E78.00 Pure hypercholesterolemia, unspecified (principal)
CPT/HCPCS: 36415; 80061

== ENCOUNTER 2022-10-06 13:17 | Emergency (ER) | payer MEDICARE, MEDICAID, SELFPAY ==
[2022-10-06] VITALS (22 sets, daily range): BP systolic 131–152; BP diastolic 70–110; PULSE 59–76; RESP 10–24; TEMP 36.9; O2SAT 96–99
--- NOTE | 2022-10-06 13:15 | RT.EKG_ITS ---
APPROVED REPORT Exam: Resting ECG Reason for Exam: chest pain, sob Patient Location: E HR:66 bpm ECG Measurements Heart Rate 66 AXIS [place] 174 P 49 QRSd 72 QRS -12 QT 393 T 33 QTc 412 Conclusion Sinus rhythm...normal P axis, V-rate 60- 99
[2022-10-06 13:56] LABS: Abs Immature Grans 0.01 10^3/uL (0.0-0.06); Absolute Basophil Count 0.02 10^3/uL (0.0-0.2); Absolute Eosinophil Count 0.09 10^3/uL (0.0-0.7); Absolute Lymphocyte Count 1.97 10^3/uL (1.2-3.4); Absolute Monocyte Count 0.36 10^3/uL (0.1-0.8); Absolute Neutrophil Count 3.63 10^3/uL (1.2-6.7); Basophils % 0.3; Eosinophils % 1.5; HGB 14.3 g/dL (11.2-15.7); Immature Grans % 0.2; Lymphocytes % 32.4; MCH 31.3 pg (27.0-33.0); MCHC 33.3 % (32.0-36.0); MCV 94 fL (80-95); MPV 10.5 fL (8.0-11.0); Monocytes % 5.9; Neutrophils % 59.7; Platelet Count 168 10^3/uL (130-400); RBC 4.57 10^6/uL (3.93-5.22); RDW 12.7 % (11.7-14.6); RDW-SD 43.8 fL; WBC 6.08 10^3/uL (4.4-10.8)
[2022-10-06 14:18] LABS: ALT 16 U/L (14-59); AST 12 U/L (15-37); Albumin 3.7 g/dL (3.4-5.0); Alkaline Phosphatase 83 U/L (46-116); Anion Gap 9.7 mmol/L (3-11); BUN 12 mg/dL (7-18); Bilirubin, Total 0.3 mg/dL (0.2-1.0); CO2 24.3 mmol/L (21.0-32.0); CREATININE 0.5 mg/dL (0.55-1.02); Calcium 10.2 mg/dL (8.5-10.1); Chloride 105 mmol/L (98-107); Estimated GFR 105.98 (mL/min/1.73m2); Glucose 101 mg/dL (74-106); Magnesium 1.9 mg/dL (1.8-2.4); Sodium 139 mmol/L (136-145); Total Protein 7.1 g/dL (6.4-8.2); Troponin I < 50 ng/L (<or=60)
[2022-10-06 14:31] LABS: D-Dimer 489 ng/mlFEU (<500)
--- NOTE | 2022-10-06 14:45 | DI.RAD_ITS ---
Exam(s) XR CHEST 2V PA LATERAL EXAM: XR CHEST 2V PA LATERAL CLINICAL HISTORY: chest pain TECHNIQUE: 2D digital imaging was performed. COMPARISON: CT CT CHEST WO from 06/06/2022 FINDINGS: Leads overlie the chest HEART: Normal size. Aorta: Not dilated. PULMONARY VASCULATURE: Normal. LUNGS: Clear. PLEURAL SPACE: No pleural effusion or pneumothorax. BONE:Unremarkable for age. IMPRESSION: No acute abnormality. DATA REPOSITORY: RADIATION DOSE DELIVERED:
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
[2022-10-06 17:10] LABS: Troponin I < 50 ng/L (<or=60)
--- NOTE | 2022-10-06 18:08 | NUR.NOTE ---
Referral faxed to PCP for recheck of chest pain in 2 to 3 days.Nursing Note:
== END 2022-10-06 17:45 | disposition home or self-care (01) ==
PROVIDERS: Emergency Provider Nurse Practitioner Family; PCP Nurse Practitioner
DX: R07.9 Chest pain, unspecified (principal); R01.1 Cardiac murmur, unspecified
CPT/HCPCS: 36415; 80053; 93005; 99284; 71046; 83735; 84484; 85025; 85379; 93010

== ENCOUNTER → 2022-10-16 11:51 | Outpatient (CLI) | payer MEDICARE, MEDICAID, SELFPAY ==
--- NOTE | 2022-10-16 10:00 | DI.US_ITS ---
APPROVED REPORT EXAM: Comprehensive 2D, Doppler, and color-flow Echocardiogram Patient Location: Out-Patient Truck Dock Material Mover: Jame Mcdaniel RDCS (AE) Indications: chest pressure, smoker, hyperlipidemia, snoring Conclusion Normal left ventricular wall thickness and chamber size. Ejection fraction is 60%. There were no wa ll motion abnormalities. Diastolic function is normal Normal right ventricular size and systolic function Both atria are normal in size There is no structural or hemodynamically significant valvular disease Right ventricular systolic pressure could not be estimated Wall motion Left Ventricle The left ventricle is normal size. The left ventricular systolic function is normal. The left ventric ular ejection fraction is within the normal range. There is normal left ventricular wall thickness. T here is normal LV segmental wall motion. There is no ventricular septal defect visualized. LVEF is 60 %. Right Ventricle The right ventricle is normal size. The right ventricular systolic function is normal. Unable to asse ss PA pressure. Atria The left atrium size is normal. The right atrium size is normal. The interatrial septum is intact wit h no evidence for an atrial septal defect. Aortic Valve The aortic valve is normal in structure. Aortic valve is trileaflet. There is no aortic valvular sten osis. No aortic regurgitation is present. Mitral Valve The mitral valve is normal in structure. No evidence of mitral valve stenosis. Trace mitral regurgita tion. Tricuspid Valve The tricuspid valve is normal in structure. There is no tricuspid valve stenosis. Trace tricuspid reg urgitation. Pulmonic Valve The pulmonary valve is normal in structure. There is no pulmonic valvular stenosis. There is no pulmo fanny valvular regurgitation. Great Vessels The aortic root is normal in size. Ascending aorta is not well visualized. Aortic arch is normal in c aliber. IVC is normal in size and collapses >50% with inspiration. Pericardium There is no pericardial effusion. 2D Dimensions IVSD d PLAX 0.75 cm F: 0.6-1.0 Ao Root d 2.55 cm F: 2.7 - 3.3 LVPW d PLAX 0.76 cm F: 0.6 - 1.0 LVID d PLAX 5.20 cm F: 3.8 - 5.2 LVDs 3.61 cm F: 2.2 - 3.5 LV EF Teichholz 57.5 % FS 30.47 % LV EDV (Teich) 129.2 mL LV ESV (Teich) 54.9 mL Stroke Vol Index (Teich) 35.92 M-Mode TAPSE 2.22 cm (M/F) >1.7 Auto EF LV EDV A4C 108.3 mL LV EDV A2C 94.0 mL LV EDV BP 102.0 mL LV ESV A4C 42.0 mL LV ESV A2C 35.0 mL LV ESV BP 39.3 mL LVEF(%) A4C 61.2 % LVEF(%) A2C 62.8 % LVEF(%) BP 61.5 % LV SV A4C 66.3 ml LV SV A2C 59.0 ml LV SV BP 62.7 ml LV CO A4C 4.4 L/min LV CO A2C 3.8 L/min LV CO BP 4.1 L/min HR A4C 65.69 BPM HR A2C 64.17 BPM LV EDV Index (BP) LA Volume LA Length A4C 4.8 cm LA Length A2C LA Area A4C s 9.65 cm2 LA Area A2C s LA Vol A4C A-L 16.61 mL LA Vol A2C A-L LA Vol Biplane A-L LA Vol A4C MOD 16.3 mL LA Vol A2C MOD LA Vol BP MOD RA Volume RA Area A4C 8.3 cm2 RA ESV A4C (A-L) 16.4mL RA Vol/BSA A4C A-L RA Length A4C 3.6 cm RA ESV A4C (MOD) 16.9mL LV Diastology MV E' medial 0.088 (>0.07 m/s) MV E Vmax 0.80 (0.4-1.3 m/s) MV E/E' MED 9.02 (<14) MV A Vmax 0.90 (0.4-1.3 m/s) MV E' lateral 0.106 (>0.1 m/s) E/A Ratio 0.9 MV E/E' LAT 7.53 (<14) MV E' Average 0.097 m/s MV E/E'(average) 8.21 Aortic Valve AoV Vmax 1.59 m/s LVOT Vmax 1.51 m/s AoV Peak Grad 10.1 mmHg LVOT Peak Grad 9.2 mmHg AoV Area (Vmax) 2.20 cm2 LVOT VTI 0.333 m AoV VTI 0.326 m LVOT Mean Grad 5.2 mmHg AoV Mean Parvez. 1.06 m/s LVOT SV 76.98 mL AoV Mean Grad 5.3 mmHg LVOT Diam s 1.70 cm AoV Area (VTI) 2.36 cm2 Velocity Ratio 0.95 Mitral Valve MV DT 223 (160-240 msec) Pulmonary Valve PV Vmax 1.02 (0.5-1.5 m/s) RVOT Vmax 0.89 m/s PV Peak Grad 4.2 mmHg RVOT Peak Gr. 3.1 mmHg PV Mean Parvez 0.74 m/s RVOT VTI 0.222 m PV Mean Grad 2.5 mmHg RVOT Mean Gr. 1.9 mmHg
== END ==
PROVIDERS: PCP Nurse Practitioner; Visit Provider Nurse Practitioner
DX: E78.5 Hyperlipidemia, unspecified (principal); R06.83 Snoring; R07.89 Other chest pain; R73.03 Prediabetes; Z72.0 Tobacco use
CPT/HCPCS: 93306

== ENCOUNTER → 2022-10-20 00:38 | Outpatient (CLI) | payer MEDICARE, MEDICAID, SELFPAY ==
--- NOTE | 2022-10-20 06:30 | DI.NM_ITS ---
APPROVED REPORT Exam: Pharmacologic Patient Location: Out-Patient Room/Bed: Stress Nurse: Brent Grande RN Ordering Provider:SHAHEEN PINEDA, Contact Number: [phone] BMI: 18.53 Baseline Rhythm: Sinus Rhythm Indications: Chest pressure, other chest pain. Medical History Medical History: Smoking, systolic murmur, Cardiac Medications: Lasis, Requip, ASA., Allergies: Latex, PCN, bupropion, NSAIDS, sulfa, adhesive, Carbapenims. Cardiac Risk Factors: Family HX, recent smoking hyperlipidemia,obesity. Previous Cardiac Procedures: none Pretest Chest Pain Characteristics: none Exercise History: Sedentary Physical Disabilities: Hx multilple bone fractures, chronic pain. Lung Sounds: Clear to auscultation Heart Sounds: Murmur Stress Test Details Test: Pharmacologic stress testing performed using 0.4 mg of regadenoson per 5 mL given IV over 10 s econds. Reason for pharmacologic stress test: physical limitation. Nuclear Acquisition: Rest Tc-99m/Stress Tc-99m 1 day Rest Isotope: Tc-99m Sestamibi. Dose: 11.8 Date: 10/20/2022 Injection Time: 0930 Stress Isotope: Tc-99m Sestamibi. Dose: 36.0 Date: 10/20/2022 Injection Time: 1125 HR Resting HR Supine: 58 bpm Max Heart Rate (APMHR): 158.929813 bpm Target HR (85% APMHR): 134.266793 bpm Max HR Achieved: 85 bpm % of APMHR: 53.80 Recovery HR: 63 bpm BP Resting BP Supine: 158/88 mmHg Max BP: 158/88 mmHg Recovery BP: 110/78 mmHg ECG Resting ECG: Sinus Rhythm Ectopy: none Stress ECG: Sinus Rhythm ST Change: No significant ST segment changes noted Arrhythmia: None Recovery ECG: Sinus Rhythm Recovery ST Change: No significant ST segment changes noted Recovery Arrhythmia: None Clinical Stress Symptoms: SOB Rate Pressure Product: [id number] Stress ECG Conclusion 1. Resting electrocardiogram was within normal limits 2. Patient underwent testing using pharmacologic stress with regadenoson 3. Peak heart rate achieved was 54% of predicted for age 4. The electrocardiographic portion of the test was nondiagnostic 5. See MPI report Stress Test Summary STAGE HR BP SpO2 Symptoms NOTES Supine 58 158/88 99 none 1 min post Lexiscan injection 77 150/86 99 SOB 3 min post Lexiscan injection 67 150/78 98 none 6 min post Lexiscan injection 63 110/78 98 none MPI Conclusion Myocardial perfusion is normal. There is no ischemia or evidence of prior infarction Ejection fraction is 61% with normal wall motion Radiologist Interpretation Radiologist agrees with Bag Adjuster's Interpretation. Radiologist Interpretation by: Lisa Diaz MD Interpretation Date/Time: 10/21/2022 16:36:16
[2022-10-20] MEDS: Regadenoson 0.4 MG/5 ML SYR IVP (11:52)
== END ==
PROVIDERS: PCP Nurse Practitioner; Visit Provider Nurse Practitioner
DX: E78.5 Hyperlipidemia, unspecified (principal); R07.89 Other chest pain; R73.03 Prediabetes; Z72.0 Tobacco use
CPT/HCPCS: 78452; 93016; 93018; 93017; J2785

== ENCOUNTER → 2023-02-03 01:33 | Outpatient (CLI) | payer MEDICARE, MEDICAID, SELFPAY ==
--- NOTE | 2023-02-03 08:00 | DI.MAMMO_ITS ---
Exam(s) MAMMO SCREENING EXAM: MAMMO SCREENING CLINICAL HISTORY: screening, Z12.39 TECHNIQUE: Mammograms were interpreted according to the usual protocol including computer analysis w [employer] CAD system, tomosynthesis and C-view imaging. COMPARISON: 2014 through 2021 FINDINGS: The breasts are composed of scattered fibroglandular densities, Breast Density category B. No suspicious masses or suspicious microcalcifications are seen. Stable area of nodularity in the lo wer inner quadrant of the left breast. No skin thickening or abnormal axillary lymph nodes are seen. There has been no significant change from prior exams. IMPRESSION: BI-RADS Category 2 - Negative Mammogram with benign findings. Yearly screening mammography is recom mended. Breast Density - Category B, scattered fibroglandular densities. A negative radiographic report should not delay biopsy if a dominant or clinically suspicious mass is present. Up to ten percent of cancers are not identified on mammography. A negative report may reinforce clinical impression. Adenosis and dense breasts may obscure an underlying neoplasm. False positive reports average 6 to 10%. Patient will receive a letter notifying them of these results.
== END ==
PROVIDERS: PCP Nurse Practitioner; Visit Provider Nurse Practitioner
DX: Z12.31 Encounter for screening mammogram for malignant neoplasm of breast (principal)
CPT/HCPCS: 77063; 77067

== ENCOUNTER → 2023-06-04 04:33 | Outpatient (CLI) | payer MEDICARE, MEDICAID, SELFPAY ==
--- NOTE | 2023-06-04 06:45 | DI.US_ITS ---
Exam(s) US ABDOMEN EXAM: US ABDOMEN CLINICAL HISTORY: intermittent, chronic luq pain, r10.12 TECHNIQUE: Ultrasound abdomen performed using standard protocol. COMPARISON: CT CT CHEST/ABD/PEL W from 04/26/2020 FINDINGS: Exam is limited by the patient's body habitus. LIVER: Normal size and echogenicity. No focal liver lesions are seen. GALLBLADDER: Single mobile gallstone measuring 14 millimeters. No evidence of wall thickening. No pe richolecystic fluid identified. KENT'S SIGN: Negative. BILIARY SYSTEM: No intrahepatic or extrahepatic biliary ductal dilation. KIDNEYS: Kidneys are symmetric in size. No evidence of renal calculi. No evidence of hydronephrosis. No renal mass or cyst identified. PANCREAS: Normal where visualized. Tail obscured. SPLEEN: Not enlarged. ABDOMINAL AORTA AND IVC: Visualized portions normal caliber. ASCITES: None seen. IMPRESSION: Cholelithiasis. DATA REPOSITORY:
--- NOTE | 2023-06-04 09:02 | DI.RAD_ITS ---
Exam(s) XR LUMBAR SPINE COMPLETE EXAM: XR LUMBAR SPINE COMPLETE CLINICAL HISTORY: low back pain, m54.50. TECHNIQUE: 2D digital imaging was performed. COMPARISON: No exams were available for comparison FINDINGS: Five views. No evidence of acute fracture. Multilevel disc space narrowing. Also mild retrolisthesis of L1 upon L2 with disc space narrowing at this level noted. L4-5 exhibits normal disc height and without list hesis. L5-S1 level disc space significantly narrowed. No scoliosis. No significant osseous lesions in the lumbar spinal vertebrae. Sacroiliac joints appear unremarkable. Mild degenerative facet art hropathy. Incidentally noted is a calcified right upper quadrant probable gallstone measuring 1.4 x 1.2 cm. IMPRESSION: Multilevel chronic degenerative disc disease. Mild retrolisthesis L1 upon L2. Probable gallstone. DATA REPOSITORY: RADIATION DOSE DELIVERED:
--- NOTE | 2023-06-04 09:02 | DI.RAD_ITS ---
Exam(s) XR CERVICAL SPINE COMP 4-5V EXAM: XR CERVICAL SPINE COMP 4-5V CLINICAL HISTORY: neck pain, m54.2. TECHNIQUE: 2D digital imaging was performed. Eight images were obtained. AP, odontoid, lateral and b ilateral oblique images were obtained. COMPARISON: No exams were available for comparison FINDINGS: The odontoid is intact. The lateral masses are well aligned. There is normal alignment of the cervi enrico spine. There is disc space narrowing at C4-5 and C5-C6. Endplate osteophytes are seen at C4-5. T here is mild neural foraminal narrowing on the right at C4-C5. There is moderately severe right C5-C 6 neural foraminal stenosis. No significant left neural foraminal stenosis is present. No significa nt neural foraminal stenosis is present. The cervical thoracic junction is well maintained. Vascular calcifications are seen in the soft tissues. Lung apices are clear. IMPRESSION: Degenerative changes seen in the cervical spine as described above. DATA REPOSITORY: RADIATION DOSE DELIVERED:
== END ==
PROVIDERS: PCP Nurse Practitioner; Visit Provider Nurse Practitioner
DX: M51.36 Other intervertebral disc degeneration, lumbar region (principal)
CPT/HCPCS: 72050; 72110; 76700

== ENCOUNTER → 2023-06-29 04:49 | Outpatient (CLI) | payer MEDICARE, MEDICAID, SELFPAY ==
--- NOTE | 2023-06-29 06:45 | DI.CTLCSR_ITS ---
Exam(s) CT CHEST LUNG CANCER SCREEN EXAM: CT CHEST LUNG CANCER SCREEN CLINICAL HISTORY: Screening for lung cancer,current smoker TECHNIQUE: Imaging Protocol: Axial computed tomography images with coronal and sagittal reformatted images were created and reviewed. Low dose screening protocol. COMPARISON: CT CT CHEST WO from 06/06/2022 FINDINGS: Tracheobronchial tree: No bronchiectasis or mucus plugging. Mediastinum and Lorene: No dominant adenopathy or fluid collection. Pulmonary parenchyma: No consolidation or dominant measurable mass. Mild peripheral fibrotic changes . Minimal paraseptal emphysematous changes. Lung Nodules: Scattered micro nodules are noted in the upper lobes. No change from prior. No suspic ious nodules. Pleura: No effusion. No pneumothorax. Heart: The heart is not dilated. Dumj-gr-frtcjeaf coronary artery calcifications are seen. Aorta: Thoracic aorta non-dilated. Upper abdomen: Unremarkable. Bones: Degenerative changes in the spine. Old left rib fractures. Soft Tissues: Unremarkable. IMPRESSION: No suspicious pulmonary nodules. Lung RADS Cat 2 - Benign Appearance / Behavior: Nodules with a very low likelihood of becoming a clin ically active cancer due to size or lack of growth Lung-RADS 1.0 CATEGORIES: Category 0 - Prior chest CT exam(s) being located for comparison. Category 1 - Annual screening in 12 months. No nodules or definitely benign nodules. Category 2 - Annual screening in 12 months. Benign appearance. Nodules with low likelihood of becomin g active cancer. Category 3 - 6-month follow-up. Probably benign. Short-term follow-up suggested. Nodules with low lik elihood of becoming active cancer. Category 4A - 3-month follow-up and CT/PET if >8 mm in size. Suspicious finding. Findings which requi re additional testing. Category 4B - Findings which require additional testing and tissue sampling. Category 4X - Category 3 or 4 nodules with additional features or imaging findings that increases the suspicion of malignancy. Modifier S- Potentially clinically significant findings (non lung cancer) RADIATION DOSE DELIVERED: 64.33mGy.cm Total DLP DATA REPOSITORY: All CT scans at this facility are submitted to the National Radiology Data Registry (NRDR) Dose Index Registry (DIR) with the [employer] (ACR). RADIATION OPTIMIZATION: All CT scans at this facility use at least one of these dose optimization te chniques: automated exposure control; mA and/or kV adjustment per patient size (includes targeted exa ms where dose is matched to clinical indication); or iterative reconstruction.
== END ==
PROVIDERS: PCP Nurse Practitioner; Visit Provider Nurse Practitioner
DX: F17.210 Nicotine dependence, cigarettes, uncomplicated (principal); Z12.2 Encounter for screening for malignant neoplasm of respiratory organs
CPT/HCPCS: 71271

== ENCOUNTER → 2023-07-21 09:49 | Outpatient (BNVA) | payer MEDICARE, MEDICAID, SELFPAY | PROVIDERS: PCP Nurse Practitioner; Referring Provider Nurse Practitioner; Visit Provider Surgery | DX: R10.32 Left lower quadrant pain (principal) | CPT/HCPCS: 99213 ==

== ENCOUNTER 2023-07-27 09:55 | Outpatient (REF) | payer MEDICARE, MEDICAID, SELFPAY ==
[2023-07-28 13:44] LABS: Helicobacter pylori Ag, Feces Positive (Negative)
== END 2023-07-27 09:56 | disposition home or self-care (01) ==
LOC: LBN 09:55
PROVIDERS: PCP Nurse Practitioner; Visit Provider Surgery
DX: R10.32 Left lower quadrant pain (principal)
CPT/HCPCS: 87338

== ENCOUNTER 2023-08-30 12:29 | Outpatient (REF) | payer MEDICARE, MEDICAID, SELFPAY ==
[2023-09-01 13:29] LABS: Helicobacter pylori Ag, Feces Positive (Negative)
== END 2023-08-30 12:30 | disposition home or self-care (01) ==
LOC: LBN 12:29
PROVIDERS: Surgery; PCP Nurse Practitioner; Visit Provider Nurse Practitioner
DX: A04.8 Other specified bacterial intestinal infections (principal)
CPT/HCPCS: 87338

== ENCOUNTER → 2023-09-17 01:23 | Outpatient (CLI) | payer MEDICARE, MEDICAID, SELFPAY ==
--- NOTE | 2023-09-17 | DI.CT_ITS ---
Exam(s) CT LOWER EXTREMITY RT WO EXAM: CT LOWER EXTREMITY RT WO CLINICAL HISTORY: S/P ankle fusion, Z98.1; rt subtalar arthrodesis status. TECHNIQUE: Imaging Protocol: Axial computed tomography images with coronal and sagittal reformatted images were created and reviewed. CONTRAST MATERIAL: Noncontrast - COMPARISON: CR XR ANKLE RT COMPLETE from 10/15/[address] LOWER EXTREMITY RT WO from 08/25/2022 FINDINGS: Bones: Stable positioning of 2 screws noted through the talocalcaneal joint. No abnormal surrounding lucencies. Portions of the tip of the talocalcaneal joint remain visible, with only a mild amount o f bony bridging. Slightly increased bony bridging when compared with the prior exam. The bones appe ar osteoporotic. There is no evidence of acute fracture. The talar dome is intact. Degenerative ch anges also present at the tibiotalar joint. Old distal fibular fracture deformity. Faintly visualiz ed screw tracts. Soft Tissues: Edema in the subcutaneous fat, greater laterally. No abnormal gas collection or absce ss. IMPRESSION: slight interval increase in bony bridging across the talocalcaneal joint. No change in the alignment of the screws. No new abnormalities. RADIATION DOSE DELIVERED: Total DLP DATA REPOSITORY: All CT scans at this facility are submitted to the National Radiology Data Registry (NRDR) Dose Index Registry (DIR) with the [employer] (ACR). RADIATION OPTIMIZATION: All CT scans at this facility use at least one of these dose optimization te chniques: automated exposure control; mA and/or kV adjustment per patient size (includes targeted exa ms where dose is matched to clinical indication); or iterative reconstruction.
== END ==
PROVIDERS: PCP Nurse Practitioner; Visit Provider Physician Assistant
DX: Z98.1 Arthrodesis status (principal)
CPT/HCPCS: 73700

== ENCOUNTER 2023-10-20 02:30 | Outpatient (CLI) | payer MEDICARE, MEDICAID, SELFPAY ==
[2023-10-20 07:17] LABS: ESR 12 mm/hr (0-30)
[2023-10-20 07:57] LABS: Hemoglobin A1C 5.5 % (<5.7)
[2023-10-20 07:58] LABS: ALT 23 U/L (14-59); AST 18 U/L (15-37); Albumin 3.7 g/dL (3.4-5.0); Alkaline Phosphatase 92 U/L (46-116); Anion Gap 10.2 mmol/L (3-11); BUN 14 mg/dL (7-18); Bilirubin, Total 0.41 mg/dL (0.2-1.0); CO2 24.8 mmol/L (21.0-32.0); CREATININE 0.7 mg/dL (0.55-1.02); Calcium 9.8 mg/dL (8.5-10.1); Calculated LDL 196 mg/dL (<100); Chloride 105 mmol/L (98-107); Cholesterol 265 mg/dL (<200); Estimated GFR 97.12 (mL/min/1.73m2); Glucose 104 mg/dL (74-106); HDL Cholesterol 53 mg/dL (40-60); Potassium 4.1 mmol/L (3.5-5.1); Sodium 140 mmol/L (136-145); TSH (W/Ref FT4) 3.02 uIU/mL (0.36-3.74); Total Protein 6.6 g/dL (6.4-8.2); Triglyceride 83 mg/dL (<150)
[2023-10-20 08:09] LABS: C-Reactive Protein < 0.50 mg/dL (<or=0.5)
[2023-10-20 18:08] LABS: Rheumatoid Factor <8.6 IU/mL (<12.0)
[2023-10-21 11:01] LABS: Lyme Ab w Rflx to Lyme Confirm Negative (Negative)
[2023-10-21 14:51] LABS: ANA Interpretation Positive (Negative); ANA Titer Pattern 1:80 Speckled
[2023-10-23 08:34] LABS: Anaplasma phagocytophilum Negative (Negative); B. miyamotoi PCR Negative (Negative); Babesia divergens/MO-1 Negative (Negative); Babesia duncani Negative (Negative); Babesia microti Negative (Negative); Ehrlichia chaffeensis Negative (Negative); Ehrlichia ewingii/canis Negative (Negative); Ehrlichia muris eauclairensis Negative (Negative)
== END 2023-10-20 02:31 | disposition home or self-care (01) ==
LOC: LBO 02:30
PROVIDERS: PCP Nurse Practitioner; Referring Provider Nurse Practitioner; Visit Provider Nurse Practitioner
DX: E78.5 Hyperlipidemia, unspecified (principal); M25.50 Pain in unspecified joint; M54.9 Dorsalgia, unspecified; E66.9 Obesity, unspecified; I10 Essential (primary) hypertension; R73.01 Impaired fasting glucose
CPT/HCPCS: 36415; 80053; 80061; 85652; 87338; 87798; 83036; 84443; 86038; 86140; 86431; 86618

== ENCOUNTER 2023-10-20 19:38 | Outpatient (REF) | payer MEDICARE, MEDICAID, SELFPAY ==
[2023-10-27 12:26] LABS: Helicobacter pylori Ag, Feces Negative (Negative)
== END 2023-10-20 19:39 | disposition home or self-care (01) ==
LOC: LBN 19:38
PROVIDERS: PCP Nurse Practitioner; Visit Provider Surgery
DX: A04.8 Other specified bacterial intestinal infections (principal); E66.01 Morbid (severe) obesity due to excess calories; Z72.0 Tobacco use; R10.12 Left upper quadrant pain
CPT/HCPCS: 87338

== ENCOUNTER 2023-12-02 02:24 | Outpatient (CLI) | payer MEDICARE, MEDICAID, SELFPAY ==
--- NOTE | 2023-12-02 | DI.CT_ITS ---
Exam(s) CT LOWER EXTREMITY RT WO EXAM: CT LOWER EXTREMITY RT WO CLINICAL HISTORY: ARTHRITIS RT ANKLE M19.071 S/P ANKLE FUSION Z98.1 PROPHECY PROTOCOL. TECHNIQUE: Imaging Protocol: CT scan of the right lower extremity was performed according to the [facility] protocol. This is a nondiagnostic examination prior to right ankle joint replacement. COMPARISON: CT CT LOWER EXTREMITY RT WO from 09/17/2023 FINDINGS: Bones: There again seen postsurgical changes of a talocalcaneal fusion. There are degenerative tavares ges seen at the right ankle joint. There is a deformity seen in the distal fibula which may reflect prior trauma. No cellulitic or osteomyelitic changes are identified. No lytic or sclerotic lesions are identified. Soft Tissues: Within normal limits. IMPRESSION: Degenerative changes are seen at the ankle joint. RADIATION DOSE DELIVERED: 206.53mGy.cm Total DLP 206.53mGy.cm Total DLP DATA REPOSITORY: All CT scans at this facility are submitted to the National Radiology Data Registry (NRDR) Dose Index Registry (DIR) with the [employer] (ACR). RADIATION OPTIMIZATION: All CT scans at this facility use at least one of these dose optimization te chniques: automated exposure control; mA and/or kV adjustment per patient size (includes targeted exa ms where dose is matched to clinical indication); or iterative reconstruction.
== END 2023-12-02 02:44 ==
LOC: DI 02:24
PROVIDERS: PCP Nurse Practitioner; Visit Provider Orthopaedic Surgery
DX: M19.071 Primary osteoarthritis, right ankle and foot (principal)
CPT/HCPCS: 73700

== ENCOUNTER 2024-06-30 02:39 | Outpatient (CLI) | payer MEDICARE, MEDICAID, SELFPAY ==
--- NOTE | 2024-06-30 07:00 | DI.MAMMO_ITS ---
Exam(s) MAMMO SCREENING EXAM: MAMMO SCREENING CLINICAL HISTORY: screening,Z12.39 TECHNIQUE: Mammograms were interpreted according to the usual protocol including computer analysis w [employer] CAD system, tomosynthesis and C-view imaging. COMPARISON: 2014 through 2022 FINDINGS: The breasts are composed of scattered fibroglandular densities, Breast Density category B. No suspicious masses or suspicious microcalcifications are seen. Stable circumscribed nodule in the lower inner quadrant of the left breast. Stable benign appearing cage insert. No skin thickening or abnormal axillary lymph nodes are seen. There has been no significant change from prior exams. IMPRESSION: BI-RADS Category 2 - Benign Findings Yearly screening mammography is recommended. Breast Density - Category B, scattered fibroglandular densities. Breast density Category C or D implies that the patient has dense breast tissue. Dense breast tissue can make it harder to find cancer on a mammogram. Dense breast tissue is also associated with an incr eased risk of breast cancer. This information about the result of the mammogram report was provided to the patient to raise their awareness. Use this report when you speak with the patient about their risks for breast cancer, which includes their family history. At that time, you may recommend additional screening tests (Ultrasoun d or MRI) as these tests may add significant information. A negative radiographic report should not delay biopsy if a dominant or clinically suspicious mass is present. Up to ten percent of cancers are not identified on mammography. A negative report may reinforce clinical impression. Adenosis and dense breasts may obscure an underlying neoplasm. False positive reports average 6 to 10%. Patient will receive a letter notifying them of these results.
--- NOTE | 2024-06-30 13:19 | DI.CTLCSR_ITS ---
Exam(s) CT CHEST LUNG CANCER SCREEN EXAM: CT CHEST LUNG CANCER SCREEN CLINICAL HISTORY: Screening for lung cancer,CIGARETTE SMOKER, F17.210 TECHNIQUE: Imaging Protocol: Axial computed tomography images with coronal and sagittal reformatted images were created and reviewed. Lung Computer Aided Detection (CAD) was utilized. COMPARISON: CT CT CHEST WO from 06/06/[address] CHEST LUNG CANCER SCREEN from 06/29/2023 FINDINGS: Tracheobronchial tree: Patent where visualized. No bronchiectasis. Pulmonary parenchyma: No consolidation or dominant measurable mass. No architectural distortion. Lung Nodules: There is a 3 mm nodule in the right upper lobe. No other nodules are seen. Mediastinum and Lorene: No dominant adenopathy or fluid collection. The esophagus is unremarkable. Thyroid gland: Unremarkable. Lymph nodes: Unremarkable. Pleura: No effusion or pneumothorax. Heart: The heart is not dilated. Two vessel coronary artery calcification is present. No pericardial effusion. Aorta: Thoracic aorta non-dilated.Atherosclerotic calcification is present. Upper abdomen: Cholelithiasis. Soft Tissues: Unremarkable. Bones: Within normal limits. IMPRESSION: No suspicious pulmonary nodules. Stable pulmonary nodules. Lung RADS Cat 2 - Benign Appearance / Behavior: Nodules with a very low likelihood of becoming a clin ically active cancer due to size or lack of growth Lung-RADS 1.0 CATEGORIES: Category 0 - Prior chest CT exam(s) being located for comparison. Category 1 - Annual screening in 12 months. No nodules or definitely benign nodules. Category 2 - Annual screening in 12 months. Benign appearance. Nodules with low likelihood of becomin g active cancer. Category 3 - 6-month follow-up. Probably benign. Short-term follow-up suggested. Nodules with low lik elihood of becoming active cancer. Category 4A - 3-month follow-up and CT/PET if >8 mm in size. Suspicious finding. Findings which requi re additional testing. Category 4B - Findings which require additional testing and tissue sampling. Suspicious finding. Category 4X - Category 3 or 4 nodules with additional features or imaging findings that increases the suspicion of malignancy. Modifier S- Potentially clinically significant finding. (Non lung cancer) RADIATION DOSE DELIVERED: 34.73mGy.cm Total DLP 34.73mGy.cmTotal DLP DATA REPOSITORY: All CT scans at this facility are submitted to the National Radiology Data Registry (NRDR) Dose Index Registry (DIR) with the [employer] (ACR). RADIATION OPTIMIZATION: All CT scans at this facility use at least one of these dose optimization te chniques: automated exposure control; mA and/or kV adjustment per patient size (includes targeted exa ms where dose is matched to clinical indication); or iterative reconstruction.
== END 2024-06-30 02:59 ==
LOC: DI 02:40
PROVIDERS: PCP Nurse Practitioner; Visit Provider Nurse Practitioner
DX: F17.210 Nicotine dependence, cigarettes, uncomplicated (principal); Z12.31 Encounter for screening mammogram for malignant neoplasm of breast; Z12.2 Encounter for screening for malignant neoplasm of respiratory organs; R92.323 Mammographic fibroglandular density, bilateral breasts
CPT/HCPCS: 71271; 77063; 77067

== ENCOUNTER 2024-08-10 10:28 | Outpatient (CLI) | payer MEDICARE, MEDICAID, SELFPAY ==
--- NOTE | 2024-08-10 10:15 | DI.RAD_ITS ---
Exam(s) XR SHOULDER LT COMPLETE 2+V EXAM: XR SHOULDER LT COMPLETE 2+V CLINICAL HISTORY: LEFT SHOULDER PAIN. TECHNIQUE: 2D digital imaging was performed. COMPARISON: No exams were available for comparison FINDINGS: Two views No evidence of fracture or dislocation nor diminution of the subacromial space. There are no soft tissue calcifications. No obvious degenerative changes in the glenohumeral and AC joints. Bone density normal. No osseous lesions. IMPRESSION: No significant radiograph findings on these two views of the left shoulder. DATA REPOSITORY: RADIATION DOSE DELIVERED:
== END 2024-08-10 10:29 | disposition home or self-care (01) ==
LOC: DIORS 10:28
PROVIDERS: PCP Nurse Practitioner; Referring Provider Nurse Practitioner; Visit Provider Student in an Organized Health Care Education/Training Program
DX: M25.512 Pain in left shoulder (principal); M67.922 Unspecified disorder of synovium and tendon, left upper arm; M75.102 Unspecified rotator cuff tear or rupture of left shoulder, not specified as traumatic
CPT/HCPCS: 99213; 73030

== ENCOUNTER 2024-08-23 03:14 | Outpatient (CLI) | payer MEDICARE, MEDICAID, SELFPAY ==
--- NOTE | 2024-08-23 07:45 | DI.MRI_ITS ---
Exam(s) MR UPPER JOINT LT WO EXAM: MR UPPER JOINT LT WO CLINICAL HISTORY: LEFT SHOULDER PAIN,lt rotator cuff tear,tendinopathy lt biceps tendon, TECHNIQUE: Multiplanar multisequence MRI of the shoulder was performed. COMPARISON: CR XR SHOULDER LT COMPLETE 2+V from 08/10/2024 FINDINGS: MARROW:There is no evidence of fracture, Hill-Sachs deformity, nor ominous osseous lesions. GLENOHUMERAL JOINT: There is a small-moderate size glenohumeral joint effusion. Mild synovial thickening is noted in the inferior recess. There are no obvious loose intra-articular bodies. No osteophytes. No degenerative subarticular cysts in the osseous glenoid.. There appears to be some mild susceptibility artifact in the greater tuberosity region which most probably reflects prior surgical procedure ROTATOR CUFF MECHANISM: AC JOINT/ACROMIUM: There is no surgical widening of the AC joint. There are moderate degenerative changes in the AC joint. Some impingement upon the rotator cuff mechanism is noted at this level.. There is no evidence of os acromiale. Supraspinatus: There is thickening and signal abnormality within the supraspinatus tendon consistent with tendinitis-tendinosis and there is min significant partial-thickness tearing of the supraspinatus just above the greater tuberosity in the foot pad insertional aspect. There is a sliver of fluid in the subacromial-subdeltoid bursa. No significant retraction. Minimal atrophy. Infraspinatus: Very mild insertional tendinitis signal. No significant tear. No atrophy. Teres Minor: Intact. No evidence of tear nor muscle atrophy. Subscapularis/anterior cuff: There is some mild tendinitis signal at the insertional aspect anterior to the lesser tuberosity. No high-grade tear. No atrophy. BICEPS TENDON: Exhibits normal position within the intertubercular groove. No evidence of tear. There is significant fluid in the biceps tendon sheath which is in continuity with the glenohumeral joint effusion. There are no loose bodies in the biceps tendon sheath. LABRUM: There is no evidence of paralabral cyst. There is no significant signal abnormality in the superior labrum posterior to the biceps insertion site. There is some surface irregularity of the posterior labrum noted consistent with degenerative changes in the labrum at this level. Some irregularity of the anterior superior labrum is noted suspicious for small labral tear at this level.. The anterior inferior labrum there is intact. There is no evidence of osseous Bankart lesion. QUADRILATERAL SPACE: No evidence of mass in the region of the axillary nerve and dorsal circumflex humeral vessels. Visualized triceps muscle at this level appears unremarkable. IMPRESSION: 1. There is evidence of probable prior surgery. There is significant thickening and signal abnormality in the supraspinatus tendon consistent with tendinosis- tendinitis and there is articular side partial-thickness tearing at the foot pad insertion site of the supraspinatus. 2. There is mild insertional tendinitis signal in the infraspinatus and anterior cuff-subscapularis but no tears of these muscular components of the rotator cuff mechanism. Teres minor is intact. 3. There is no evidence of tear nor displacement of the long head biceps tendon. There is subtle irregularity in the anterior superior labrum and posterior labrum suspicious for surface tearing. There is no evidence of paralabral cyst. 4. There is a mild-moderate size glenohumeral joint effusion. This fluid extends down the biceps tendon sheath. Some synovial thickening is noted in the inferior recess. There are no loose intra-articular bodies evident. There are no prominent degenerative changes in the glenohumeral joint. No osteophytes nor degenerative subarticular cysts. Only minimal articular cartilage thinning evident. There are moderate degenerative changes in the AC joint. DATA REPOSITORY:
== END 2024-08-23 03:34 ==
LOC: DI 03:14
PROVIDERS: PCP Nurse Practitioner; Visit Provider Student in an Organized Health Care Education/Training Program
DX: M75.112 Incomplete rotator cuff tear or rupture of left shoulder, not specified as traumatic (principal); M67.922 Unspecified disorder of synovium and tendon, left upper arm
CPT/HCPCS: 73221

== ENCOUNTER → 2024-09-13 13:46 | Outpatient (BNVA) | payer MEDICARE, MEDICAID, SELFPAY | PROVIDERS: PCP Nurse Practitioner; Referring Provider Nurse Practitioner; Visit Provider Student in an Organized Health Care Education/Training Program | DX: M75.102 Unspecified rotator cuff tear or rupture of left shoulder, not specified as traumatic (principal); M67.922 Unspecified disorder of synovium and tendon, left upper arm | CPT/HCPCS: 99214 ==

== ENCOUNTER 2024-09-19 10:27 | Emergency (ER) | payer MEDICARE, MEDICAID, SELFPAY ==
[2024-09-19 10:31] VITALS: BP 179/80; PULSE 76; RESP 18; TEMP 36.9; O2SAT 94
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
--- NOTE | 2024-09-19 11:00 | DI.RAD_ITS ---
Exam(s) XR WRIST LT COMP NAVICULAR EXAM: XR WRIST LT COMP NAVICULAR CLINICAL HISTORY: L wrist injury; fall last night. TECHNIQUE: 2D digital imaging was performed. Three views. COMPARISON: CT CT LOWER EXTREMITY RT WO from 12/02/2023 FINDINGS: BONES: There is a comminuted intra-articular fracture of the distal radius. There is some impaction but minimal angulation. The ulnar styloid is also fractured. Carpal bones appear intact. No bony destructive lesion is seen. JOINTS: The carpal bones are normally aligned. SOFT TISSUE: Normal marked soft tissue swelling around the wrist. IMPRESSION: Comminuted intra-articular fracture of the distal radius. Ulnar styloid fracture. DATA REPOSITORY: RADIATION DOSE DELIVERED:
[2024-09-19] MEDS: oxyCODONE 5 MG TAB PO (12:21)
[2024-09-19] MEDS: Acetaminophen 500 MG TAB 1000 MG PO (12:21)
[2024-09-19 12:22] VITALS: BP 180/82; PULSE 73; O2SAT 99
[2024-09-19] MEDS: Ketorolac 30 MG/ML VIAL IM (12:22)
--- NOTE | 2024-09-19 13:40 | DI.CT_ITS ---
Exam(s) CT UPPER EXTREMITY LT WO EXAM: CT UPPER EXTREMITY LT WO CLINICAL HISTORY: L wrist fracture TECHNIQUE: Imaging Protocol: Axial computed tomography images with coronal and sagittal reformatted images were created and reviewed. CONTRAST MATERIAL: Noncontrast- COMPARISON: CR XR WRIST LT LIMITED from 08/29/2020 CR XR WRIST LT LIMITED from 10/31/2020 CR XR WRIST LT COMP NAVICULAR from 09/19/2024 FINDINGS: Bones: There is a comminuted intra-articular fracture of the distal radius. There is slight dorsal angulation. There is a mildly displaced fracture through the base of the ulnar styloid. An old ulnar styloid fracture is also present. The bones appear osteoporotic. There is evidence of old hardware in the distal radius. There are minimal old healed fracture deformities of the distal radius and ulna. There is no evidence of dislocation. Joints: There is widening of the scapholunate distance and slight dorsal tilt of the lunate. There are degenerative cysts in the base of the scaphoid. There is narrowing of the radiocarpal joint space. Soft Tissues: Edema in the subcutaneous fat around the wrist. IMPRESSION: Acute comminuted intra-articular fracture of the distal radius with significant separation at the articular surface. Mildly displaced ulnar styloid fracture. RADIATION DOSE DELIVERED: 51.89mGy.cm Total DLP DATA REPOSITORY: All CT scans at this facility are submitted to the National Radiology Data Registry (NRDR) Dose Index Registry (DIR) with the [employer] (ACR). RADIATION OPTIMIZATION: All CT scans at this facility use at least one of these dose optimization techniques: automated exposure control; mA and/or kV adjustment per patient size (includes targeted exams where dose is matched to clinical indication); or iterative reconstruction.
[2024-09-19 14:31] VITALS: BP 130/90; PULSE 72; RESP 16; O2SAT 97
== END 2024-09-19 14:44 | disposition home or self-care (01) ==
PROVIDERS: Emergency Provider Physician Assistant; PCP Nurse Practitioner
DX: S52.502A Unspecified fracture of the lower end of left radius, initial encounter for closed fracture (principal); W19.XXXA Unspecified fall, initial encounter
CPT/HCPCS: 99284; 99283; 29125; 96372; 29105; 73110; 73200; J1885

== ENCOUNTER 2024-09-28 11:11 | Outpatient (CLI) | payer MEDICARE, MEDICAID, SELFPAY ==
--- NOTE | 2024-09-28 10:45 | DI.RAD_ITS ---
Exam(s) XR WRIST LT LIMITED EXAM: XR WRIST LT LIMITED INDICATION: F/U FRACTURE. COMPARISON: CR XR WRIST LT COMP NAVICULAR from 09/19/[address] UPPER EXTREMITY LT WO from 09/19/2024 TECHNIQUE: 2D digital imaging was performed. Two views. FINDINGS: There appears to be worsening of the posterior angulation and separation of the fracture at the articular surface based on the lateral view. There is no visible change on the PA view. The ulnar styloid fracture appears unchanged. DATA REPOSITORY: RADIATION DOSE DELIVERED:
== END 2024-09-28 11:12 | disposition home or self-care (01) ==
LOC: DIORS 11:11
PROVIDERS: PCP Nurse Practitioner; Referring Provider Nurse Practitioner; Visit Provider Student in an Organized Health Care Education/Training Program
DX: S52.572A Other intraarticular fracture of lower end of left radius, initial encounter for closed fracture (principal); T84.84XA Pain due to internal orthopedic prosthetic devices, implants and grafts, initial encounter; W19.XXXA Unspecified fall, initial encounter; Z98.890 Other specified postprocedural states
CPT/HCPCS: 99214; 73100

== ENCOUNTER 2024-10-07 15:08 | Outpatient (CLI) | payer MEDICARE, MEDICAID, SELFPAY ==
--- NOTE | 2024-10-07 11:45 | DI.RAD_ITS ---
Exam(s) XR WRIST LT COMPLETE EXAM: XR WRIST LT COMPLETE CLINICAL HISTORY: ongoing pain, lt wrist fracture, S62.102A. TECHNIQUE: 2D digital imaging was performed. COMPARISON: CT CT UPPER EXTREMITY LT WO from 09/19/2024 FINDINGS: Four views taken through fiberglass cast material reveal the fracture sites of distal radius and ulna styloid. There appears to be some proved alignment of the fracture fragments. No carpal dislocation. IMPRESSION: As above DATA REPOSITORY: RADIATION DOSE DELIVERED:
== END 2024-10-07 15:28 ==
LOC: DI 15:08
PROVIDERS: PCP Nurse Practitioner; Visit Provider Nurse Practitioner Family
DX: S52.502D Unspecified fracture of the lower end of left radius, subsequent encounter for closed fracture with routine healing (principal); X58.XXXD Exposure to other specified factors, subsequent encounter
CPT/HCPCS: 73110

== ENCOUNTER → 2024-10-12 09:41 | Outpatient (BNVA) | payer MEDICARE, MEDICAID, SELFPAY | PROVIDERS: PCP Nurse Practitioner; Referring Provider Nurse Practitioner; Visit Provider Student in an Organized Health Care Education/Training Program | DX: S52.502D Unspecified fracture of the lower end of left radius, subsequent encounter for closed fracture with routine healing (principal); S52.602D Unspecified fracture of lower end of left ulna, subsequent encounter for closed fracture with routine healing; X58.XXXD Exposure to other specified factors, subsequent encounter | CPT/HCPCS: 99213 ==

== ENCOUNTER 2024-10-25 11:02 | Outpatient (CLI) | payer MEDICARE, MEDICAID, SELFPAY ==
--- NOTE | 2024-10-25 10:00 | DI.RAD_ITS ---
Exam(s) XR WRIST LT LIMITED EXAM: XR WRIST LT LIMITED CLINICAL HISTORY: F/U FRACTURE. TECHNIQUE: 2D digital imaging was performed of the left wrist. Two images were obtained. PA and lateral views were obtained. COMPARISON: CR XR WRIST LT LIMITED from 09/28/2024 CR XR WRIST LT COMPLETE from 10/07/2024 FINDINGS: BONES: The cast has been removed. There has been no significant change in alignment of the mildly impacted distal left radial fracture. There is some callus formation noted particularly laterally consistent with some interval healing. Ulnar styloid process fracture a alignment appears stable. No bony destructive lesion is seen. JOINTS: The carpal bones are normally aligned. SOFT TISSUE: There is soft tissue swelling of the wrist. IMPRESSION: Stable alignment of the distal radial and ulnar fractures. DATA REPOSITORY: RADIATION DOSE DELIVERED:
== END 2024-10-25 11:03 | disposition home or self-care (01) ==
LOC: DIORS 11:02
PROVIDERS: PCP Nurse Practitioner; Referring Provider Nurse Practitioner; Visit Provider Student in an Organized Health Care Education/Training Program
DX: S52.502D Unspecified fracture of the lower end of left radius, subsequent encounter for closed fracture with routine healing (principal); S52.602D Unspecified fracture of lower end of left ulna, subsequent encounter for closed fracture with routine healing; X58.XXXD Exposure to other specified factors, subsequent encounter
CPT/HCPCS: 99213; 73100

== ENCOUNTER 2024-11-15 11:09 | Outpatient (CLI) | payer MEDICARE, MEDICAID, SELFPAY ==
--- NOTE | 2024-11-15 10:30 | DI.RAD_ITS ---
Exam(s) XR WRIST LT LIMITED EXAM: XR WRIST LT LIMITED CLINICAL HISTORY: F/U FRACTURE. TECHNIQUE: 2D digital imaging was performed of the left wrist. Two images were obtained. PA and lateral views were obtained. COMPARISON: CT CT UPPER EXTREMITY LT WO from 09/19/2024 CR XR WRIST LT LIMITED from 10/25/2024 FINDINGS: BONES: There has been no change in alignment of the distal radial fracture. The fracture line is still visualized. The ulnar styloid process fracture is unchanged in alignment. The bones are osteopenic. No bony destructive lesion is seen. JOINTS: The carpal bones are normally aligned. SOFT TISSUE: Normal. IMPRESSION: Stable alignment of the distal left radial and ulnar fractures. DATA REPOSITORY: RADIATION DOSE DELIVERED:
== END 2024-11-15 11:10 | disposition home or self-care (01) ==
LOC: DIORS 11:09
PROVIDERS: PCP Nurse Practitioner; Referring Provider Nurse Practitioner; Visit Provider Student in an Organized Health Care Education/Training Program
DX: S52.502D Unspecified fracture of the lower end of left radius, subsequent encounter for closed fracture with routine healing (principal); S52.602D Unspecified fracture of lower end of left ulna, subsequent encounter for closed fracture with routine healing; X58.XXXD Exposure to other specified factors, subsequent encounter
CPT/HCPCS: 99214; 73100

== ENCOUNTER → 2024-12-13 00:50 | Outpatient (CLI) | payer MEDICARE, MEDICAID, SELFPAY ==
--- NOTE | 2024-12-13 06:15 | DI.DEXA_ITS ---
Exam(s) XR DEXA BONE DENSITY W/WO JAVIER EXAM: XR DEXA BONE DENSITY W/WO JAVIER CLINICAL HISTORY: Screening for altered bone density,osteopenia rt ankle,m85.871,osteopenia TECHNIQUE: COMPARISON: CR XR DEXA BONE DENSITY W/WO JAVIER from 10/28/2018 FINDINGS: Lateral Spine Image: Unremarkable. No compression deformities identified. Left hip: Total T-Score: -1.0. This is show no significant change. Prior examination total T-score is -1.1. Total Z-Score: 0.2 T- and Z-scores: There is no evidence of osteoporosis. Lumbar Spine: Total T-Score: -0.6. This compares to -0.2 on the prior examination. Total Z-Score: 1.1 T- and Z-scores: Within normal limits. Note is made of osteoporosis in the right forearm with a total T-score of -2.9 and a Z-score of -1.3. IMPRESSION: 1. There is no evidence of osteoporosis in the left hip or lumbar spine. 2. Osteoporosis in the right forearm.
== END ==
LOC: DI 00:50
DX: M85.871 Other specified disorders of bone density and structure, right ankle and foot (principal); E66.01 Morbid (severe) obesity due to excess calories; Z96.7 Presence of other bone and tendon implants; Z87.81 Personal history of (healed) traumatic fracture
CPT/HCPCS: 77080

== ENCOUNTER 2024-12-13 13:13 | Outpatient (CLI) | payer MEDICARE, MEDICAID, SELFPAY ==
--- NOTE | 2024-12-13 10:01 | DI.RAD_ITS ---
Exam(s) XR WRIST LT LIMITED EXAM: XR WRIST LT LIMITED CLINICAL HISTORY: F/U FRACTURE. TECHNIQUE: 2D digital imaging was performed of the left wrist. Two images were obtained. PA and lateral views were obtained. COMPARISON: CR XR WRIST LT LIMITED from 10/25/2024 CR XR WRIST LT LIMITED from 11/15/2024 FINDINGS: BONES: There has been continued healing of both the ulnar styloid process and radial fractures. The fractures are nearly completely healed. The bones are osteopenic. There is no new fracture or dislocation. No bony destructive lesion is seen. JOINTS: The carpal bones are normally aligned. Mild degenerative changes are seen in the wrist. SOFT TISSUE: There is soft tissue swelling of the wrist. IMPRESSION: Stable alignment of the distal radial and ulnar fractures which show near complete healing. DATA REPOSITORY: RADIATION DOSE DELIVERED:
== END 2024-12-13 13:14 | disposition home or self-care (01) ==
LOC: DIORS 13:14
PROVIDERS: Visit Provider Student in an Organized Health Care Education/Training Program
DX: S52.502D Unspecified fracture of the lower end of left radius, subsequent encounter for closed fracture with routine healing (principal); S52.602D Unspecified fracture of lower end of left ulna, subsequent encounter for closed fracture with routine healing; X58.XXXD Exposure to other specified factors, subsequent encounter; M25.512 Pain in left shoulder
CPT/HCPCS: 99214; 73100

== ENCOUNTER 2024-12-20 00:33 | Outpatient (CLI) | payer MEDICARE, MEDICAID, SELFPAY ==
[2024-12-20 07:45] LABS: Hemoglobin A1C 5.4 % (<5.7)
[2024-12-20 08:24] LABS: Anion Gap 8.6 mmol/L (3-11); BUN 15 mg/dL (7-18); CO2 25.4 mmol/L (21.0-32.0); Calcium 9.5 mg/dL (8.5-10.1); Chloride 107 mmol/L (98-107); Cholesterol 219 mg/dL (<200); Glucose 99 mg/dL (74-106); HDL Cholesterol 55 mg/dL (>or=50); Potassium 4.2 mmol/L (3.5-5.1); Sodium 141 mmol/L (136-145)
== END 2024-12-20 00:34 | disposition home or self-care (01) ==
LOC: LBO 00:33
DX: E66.01 Morbid (severe) obesity due to excess calories (principal); R73.03 Prediabetes; E78.00 Pure hypercholesterolemia, unspecified
CPT/HCPCS: 36415; 80048; 80061; 83036

== ENCOUNTER → 2025-01-25 09:49 | Outpatient (BNVA) | payer MEDICARE, MEDICAID, SELFPAY | PROVIDERS: Referring Provider Nurse Practitioner; Visit Provider Student in an Organized Health Care Education/Training Program | DX: M75.102 Unspecified rotator cuff tear or rupture of left shoulder, not specified as traumatic (principal); M67.922 Unspecified disorder of synovium and tendon, left upper arm | CPT/HCPCS: 99214 ==